=== PATIENT | female | born 1950 | race Caucasian/White ===

== ENCOUNTER → 2016-05-30 | Outpatient (CLI) | payer MEDICARE ==
--- NOTE | 2016-05-31 08:51 | US ---
EXAMINATION TYPE: US venous doppler duplex LE RT DATE OF EXAM: 05/30/2016 5:15 PM COMPARISON: NONE CLINICAL HISTORY: M79.661 Pain in Right Lower Limb. Redness right foot SIDE PERFORMED: Right VESSELS IMAGED: External Iliac Vein (EIV) Common Femoral Vein Deep Femoral Vein Greater Saphenous Vein * Femoral Vein Popliteal Vein Small Saphenous Vein * Proximal Calf Veins (* superficial vessels) TECHNOLOGIST IMPRESSION: Right Leg: NO evidence of acute DVT as visualized, patient unable to tolerate compressions at mid an d lower femoral vein No popliteal fossa lesion was seen. IMPRESSION: THIS EXAMINATION IS NEGATIVE FOR DVT WITHIN THE RIGHT LEG.
== END | disposition home or self-care (01) ==
LOC: RADUSWWP 16:18
PROVIDERS: ATTEND Family Medicine
DX: M79.661 Pain in right lower leg (principal)

== ENCOUNTER → 2016-06-27 | Outpatient (CLI) | payer MEDICARE ==
--- NOTE | 2016-06-27 13:39 | NM ---
EXAMINATION TYPE: NM bone 3 phase DATE OF EXAM: 06/27/2016 1:18 PM COMPARISON: NONE HISTORY: M79.662 pain in lt lower limb Triple phase bone scintigraphy was performed following the injection of25.5 mCi Tc 99m MDP. Immediat e images and 5.5 hours post injection images acquired. FINDINGS: On All 3 phases of the study there is increased radiotracer accumulation involving the right third to e distally. This is nonspecific and may be posttraumatic in nature. IMPRESSION: Increased radiotracer accumulation on all 3 phases of the study involving the right third toe.
== END ==
LOC: RADNMMAIN 07:02
PROVIDERS: ATTEND Family Medicine
DX: M79.662 Pain in left lower leg (principal); M87.878 Other osteonecrosis, left toe(s)
CPT/HCPCS: 78315; A9503

== ENCOUNTER → 2016-08-06 | Outpatient (CLI) | payer MEDICARE ==
[2016-08-06 07:32] LABS: Blood Urea Nitrogen 16 mg/dL (7-17); Non-African American GFR(MDRD) >60 (>60 ml/min/1.73 sqM)
--- NOTE | 2016-08-06 08:52 | CT ---
EXAMINATION TYPE: CT foot RT w con DATE OF EXAM: 08/06/2016 8:22 AM COMPARISON: Correlation bone scan 06/27/2016 HISTORY: 66-year-old female, osteomyelitis, pain, redness to middle toe TECHNIQUE: Contiguous axial scanning of the right foot performed with IV Contrast, patient injected w ith 100 mL of Omnipaque 300. Coronal/sagittal reconstructions performed. 3-D rotational reconstructio ns generated on a dedicated independent workstation. CT DLP: 187.1 mGycm Automated exposure control for dose reduction was used. FINDINGS: There are hammertoe deformities. There is an ulceration at the downward pointing tip of the third toe . The underlying distal phalangeal tuft cortex appears intact. No valeriano bony destruction or periostitis. Diffuse vascular calcifications compatible with underlying diabetes and/or chronic kidney disease. No acute fracture or midfoot malalignment. IMPRESSION: HAMMERTOE DEFORMITIES WITH A SOFT TISSUE ULCER AT THE DOWNWARD POINTING TIP OF THE THIRD TOE. NO CONV INCING CT EVIDENCE FOR UNDERLYING OSTEOMYELITIS AT THIS TIME.
== END | disposition home or self-care (01) ==
LOC: RADCTMAIN 06:58
PROVIDERS: ATTEND Surgery
DX: L97.519 Non-pressure chronic ulcer of other part of right foot with unspecified severity (principal); M20.41 Other hammer toe(s) (acquired), right foot
CPT/HCPCS: 82565; 84520; 36415; 73701; Q9967

== ENCOUNTER → 2017-04-29 | Outpatient (CLI) | payer MEDICARE ==
--- NOTE | 2017-04-29 10:31 | US ---
EXAMINATION TYPE: US venous doppler duplex LE LT DATE OF EXAM: 04/29/2017 10:13 AM COMPARISON: Bilateral venous ultrasound November 12, 2011 CLINICAL HISTORY: M79.622,R22.42 PAIN IN LT LOWER AND UPPER LIMB. Pain left leg, patient on blood thi nner SIDE PERFORMED: left TECHNIQUE: The lower extremity deep venous system is examined utilizing real time linear array sonog suzy with graded compression, doppler sonography and color-flow sonography. VESSELS IMAGED: External Iliac Vein (EIV) Common Femoral Vein Deep Femoral Vein Greater Saphenous Vein * Femoral Vein Popliteal Vein Small Saphenous Vein * Proximal Calf Veins (* superficial vessels) Left Leg: No evidence of DVT as visualized. Patient unable to tolerate compression at lower femoral vein Grayscale, color doppler, spectral doppler imaging performed of the deep veins of the left lower extr emity. There is normal flow and vascular waveforms. IMPRESSION: Slightly suboptimal study as patient was unable to tolerate compression views, no conv incing ultrasound evidence for acute DVT.
== END | disposition home or self-care (01) ==
LOC: RADUSWWP 09:46
PROVIDERS: ATTEND Family Medicine
DX: R22.42 Localized swelling, mass and lump, left lower limb (principal)

== ENCOUNTER → 2017-05-02 | Outpatient (CLI) | payer MEDICARE ==
--- NOTE | 2017-05-02 10:15 | US ---
EXAMINATION TYPE: US venous doppler duplex LE RT DATE OF EXAM: 05/02/2017 9:53 AM COMPARISON: US CLINICAL HISTORY: 66-year-old female M79.661 PAIN IN RT LOWER LIMB; swelling and skin redness lower e xtremity x 1 week; patient stated is taking blood thinner SIDE PERFORMED: Right TECHNIQUE: The lower extremity deep venous system is examined utilizing real time linear array sonog suzy with graded compression, doppler sonography and color-flow sonography. VESSELS IMAGED: Common Femoral Vein Deep Femoral Vein Greater Saphenous Vein * Femoral Vein Popliteal Vein Small Saphenous Vein * Proximal Calf Veins Posterior tibial veins (* superficial vessels) Right Leg: Negative for DVT. Right groin lymph node is imaged = 3.9 x 1.3 x 0.9cm. IMPRESSION: No evidence for DVT within the right lower extremity. There is an incidental prominent right inguinal lymph node. This measures 1.3 cm short axis which is upper limits of normal. Likely reactive/post in flammatory and can be followed clinically.
== END | disposition home or self-care (01) ==
LOC: RADUSWWP 09:00
PROVIDERS: ATTEND Family Medicine
DX: M79.661 Pain in right lower leg (principal)

== ENCOUNTER → 2017-05-14 | Outpatient (CLI) | payer MEDICARE ==
--- NOTE | 2017-05-20 10:47 | P.ARTDOP ---
Arterial Doppler LOWER EXTREMITY ARTERIAL DOPPLER: DATE OF SERVICE: 05/14/2017 Reason for study: Bilateral leg pain. Doppler waveforms: Multiphasic bilaterally throughout .. Pulse volume recording: Normal configuration at the ankle and above and at the metatarsal level. Monophasic 2 flat line at the digital level.. Pressure gradients: Across the knee on the left and above the knee on the right.. Ankle-brachial indices: 0.74 on the right and 0.72 on the left.. Toe pressures: 23 . on the right, 25 on the left Impression: Suspect moderate bilateral fem-pop disease. Probably an additional element of vasospastic phenomenon. Cannot rule out very distal disease. Clinical correlation recommended..
== END | disposition home or self-care (01) ==
LOC: RADUSWWP 12:58
PROVIDERS: ATTEND Family Medicine
DX: M79.661 Pain in right lower leg (principal); M79.662 Pain in left lower leg; R22.41 Localized swelling, mass and lump, right lower limb
CPT/HCPCS: 93923

== ENCOUNTER → 2017-05-19 | Outpatient (CLI) | payer MEDICARE ==
--- NOTE | 2017-05-19 19:14 | ECHOF ---
Referral Reason:J44.9 Chronic obstructive pulmonary disease MEASUREMENTS -------- HEIGHT: 157.5 cm WEIGHT: 77.1 kg BP: IVSd: 1.9 cm (0.6 - 1.1) LVIDd: 1.8 cm (3.9 - 5.3) LVPWd: 1.4 cm (0.6 - 1.1) IVSs: 1.6 cm LVIDs: 1.1 cm LVPWs: 1.3 cm Ao Diam: 3.2 cm (2.0 - 3.7) AV Cusp: 1.6 cm (1.5 - 2.6) LA Diam: 3.4 cm (2.7 - 3.8) MV EXCURSION: 12.495 mm (> 18.000) MV EF SLOPE: 66 mm/s (70 - 150) EPSS: 1.5 cm MV E Zen: 0.75 m/s MV DecT: 136 ms MV A Zen: 1.34 m/s MV E/A Ratio: 0.55 AV maxP.19 mmHg AV meanP.42 mmHg RAP: 5.00 mmHg RVSP: 23.58 mmHg FINDINGS -------- Resting tachycardia (HR>100bpm). This was a technically difficult study with suboptimal views. Patient has had a mastectomy with rec onstruction. The left ventricular size is normal. There is severe concentric left ventricular hypertrophy. Ove rall left ventricular systolic function is normal with, an EF between 65 - 70 %. The right ventricle is normal in size and function. RVH The left atrium is normal in size. The right atrium is normal in size. Aortic valve is trileaflet and is mildly thickened. There is mild aortic stenosis present. Peak/m sergei gradient across the Aortic Valve is 20.19mmHg / 14.42mmHg. The mitral valve leaflets are mildly thickened. Mild mitral annular calcification present. Mild m itral regurgitation is present. Mild tricuspid regurgitation present. The right ventricular systolic pressure, as measured by Doppl er, is 23.58mmHg. The pulmonic valve was not well visualized. The aortic root size is normal. There is a small, generalized pericardial effusion present. CONCLUSIONS -------- 1. Resting tachycardia (HR>100bpm). 2. This was a technically difficult study with suboptimal views. 3. Patient has had a mastectomy with reconstruction. 4. There is severe concentric left ventricular hypertrophy. 5. Overall left ventricular systolic function is normal with, an EF between 65 - 70 %. 6. The right ventricle is normal in size and function. 7. RVH 8. The left atrium is normal in size. 9. The right atrium is normal in size. 10. Aortic valve is trileaflet and is mildly thickened. 11. There is mild aortic stenosis present. 12. Peak/mean gradient across the Aortic Valve is 20.19mmHg / 14.42mmHg. 13. The mitral valve leaflets are mildly thickened. 14. Mild mitral annular calcification present. 15. Mild mitral regurgitation is present. 16. Mild tricuspid regurgitation present. 17. The right ventricular systolic pressure, as measured by Doppler, is 23.58mmHg. 18. The pulmonic valve was not well visualized. 19. The aortic root size is normal. 20. There is a small, generalized pericardial effusion present. WEED CUTTER: Daija Coles RDCS
== END | disposition home or self-care (01) ==
LOC: RADECHMAIN 16:18
PROVIDERS: ATTEND Family Medicine
DX: I08.1 Rheumatic disorders of both mitral and tricuspid valves (principal); J44.9 Chronic obstructive pulmonary disease, unspecified
CPT/HCPCS: 93306

== ENCOUNTER 2017-08-16 18:42 | Inpatient (IN) | payer MEDICARE ==
[2017-08-16] MEDS ORDERED: SODIUM CHLORIDE 0.9% 1,000 ML IV ONE (19:11)
--- NOTE | 2017-08-16 19:17 | ED ---
Fall HPI - General Stated Complaint: fall 6 steps Source: patient, family, EMS Mode of arrival: EMS - History of Present Illness Initial Comments: 67-year-old female patient with past medical history significant for dementia, COPD, diabetes, hypertension, and hyperlipidemia presents to the emergency department today for evaluation after expressing a fall at home. Patient has a chair lift going up and down the stairs. states that patient's chair was at approximately the third step down and she was found lying on the landing approximately 7 or 8 steps down the stairs. States that she had multiple skin tears. States that she did hit her head. They deny any loss of consciousness. Patient states that she was feeling dizzy throughout the hour leading up to the fall. states the patient has been weak, nauseated, and not herself over the last 4-5 weeks. Patient currently denies any pain. She does have swelling and skin tear over the left wrist. Patient denies any headache, neck pain, back pain, chest pain, shortness of breath, abdominal pain, or difficulties with bowel movements or urination. - Related Data Home Medications Medication Instructions Recorded Confirmed Atorvastatin [Lipitor] 20 mg PO QAM 09/02/15 10/01/16 DULoxetine HCL [Cymbalta] 60 mg PO QAM 09/02/15 10/01/16 Doxepin HCl [SINEquan] 300 mg PO HS 09/02/15 10/01/16 Furosemide [Lasix] 20 mg PO QAM 09/02/15 10/01/16 INSULIN LISPRO (HumaLOG) [HumaLOG] 0 units SQ ACHS 09/02/15 10/01/16 Ramipril [Altace] 5 mg PO QAM 09/02/15 10/01/16 Roflumilast [Daliresp] 500 mcg PO QAM 09/02/15 10/01/16 amLODIPine [Norvasc] 5 mg PO QAM 09/02/15 10/01/16 rOPINIRole HCL [Requip] 3 mg PO HS 09/02/15 10/01/16 Cholecalciferol [Vitamin D3] 50,000 unit PO WEEKLY 09/13/15 10/01/16 Cranberry Fruit Extract [Cranberry] 500 mg PO DAILY 09/13/15 10/01/16 Levothyroxine Sodium [Synthroid] 50 mcg PO QAM 09/13/15 10/01/16 Potassium Otc 99 mg PO BID 09/13/15 10/01/16 Albuterol Inhaler [Ventolin Hfa 1 - 2 puff INHALATION Q6HR PRN 09/20/15 10/01/16 Inhaler] Baclofen [Lioresal] 10 mg PO HS 06/25/16 10/01/16 Cholecalciferol [Vitamin D3] 2,000 units PO DAILY 06/25/16 10/01/16 HYDROcodone/APAP 7.5-325MG [Cumby 7.5 mg PO HS 06/25/16 10/01/16 7.5-325] Insulin NPH Human Isophane 80 units SQ BID 06/25/16 10/01/16 [NovoLIN N] Rivastigmine [Exelon 13.3MG/24Hr 1 patch TOPICAL DAILY 06/25/16 10/01/16 Patch] ALPRAZolam [Xanax] 0.5 mg PO DAILY PRN 07/16/16 10/01/16 Allergies Allergy/AdvReac Type Severity Reaction Status Date / Time No Known Allergies Allergy Verified 08/16/17 18:55 Review of Systems ROS Statement: Those systems with pertinent positive or pertinent negative responses have been documented in the HPI. ROS Other: All systems not noted in ROS Statement are negative. Past Medical History Past Medical History: COPD, Diabetes Mellitus, Hyperlipidemia, Hypertension Additional Past Medical History / Comment(s): 09/02/15: FELL WITH L1 FRACTURE. Chronic back PAIN DUE TO SEVERAL FALLS. ALZHEIMER'S History of Any Multi-Drug Resistant Organisms: None Reported Past Surgical History: Back Surgery, Breast Surgery, Cholecystectomy, Joint Replacement Additional Past Surgical History / Comment(s): raya mast (FIBROCYSTIC DISEASE). BILATERAL KNEE REPLACED. KYPHOPLASTY L1 ON 09/20/15 Past Anesthesia/Blood Transfusion Reactions: No Reported Reaction Past Psychological History: No Psychological Hx Reported Smoking Status: Current every day smoker Past Alcohol Use History: None Reported Past Drug Use History: None Reported - Past Family History Mother Family Medical History: Diabetes Mellitus Sister(s) Family Medical History: Diabetes Mellitus General Exam Limitations: altered mental status General appearance: alert, in no apparent distress, other (This is a well- developed, well-nourished elderly female patient in no acute distress. Vital signs upon presentation are temperature 98.5F, pulse 124, respirations 18, blood pressure 94/47, pulse ox 85% on room air.) Head exam: Present: atraumatic, normocephalic, normal inspection Eye exam: Present: normal appearance, PERRL, EOMI. Absent: scleral icterus, conjunctival injection, periorbital swelling ENT exam: Present: normal exam, normal oropharynx, mucous membranes moist Neck exam: Present: normal inspection. Absent: tenderness, meningismus, full ROM (C-collar in place), lymphadenopathy Respiratory exam: Present: normal lung sounds bilaterally, other (Congested cough noted throughout exam). Absent: respiratory distress, wheezes, rales, rhonchi, stridor Cardiovascular Exam: Present: normal rhythm, tachycardia, normal heart sounds. Absent: systolic murmur, diastolic murmur, rubs, gallop, clicks GI/Abdominal exam: Present: soft, normal bowel sounds. Absent: distended, tenderness, guarding, rebound, rigid Extremities exam: Present: full ROM, tenderness (Tenderness over the left wrist) , normal capillary refill, other (There is a small skin tear noted over the dorsal aspect left wrist. There is left wrist swelling. No deformity noted. Skin to the left upper extremity is pink, warm, and dry. Cap refills less than 3 seconds. There is a large skin tear noted over the right forearm. Skin to the right upper extremities pink, warm, and dry. Cap refills less than 3 seconds. Radial pulses are 2+ and equal bilaterally.). Absent: normal inspection, pedal edema, joint swelling, calf tenderness Back exam: Present: normal inspection, other (Nontender, no step-off, no deformity to firm midline palpation of the thoracic and lumbar vertebrae. Full range of motion without pain or limitation.). Absent: vertebral tenderness Neurological exam: Present: alert, CN II-XII intact, other (Strength in all 4 extremities is 5/5.). Absent: oriented X3 (Oriented 2) Psychiatric exam: Present: normal affect, normal mood Skin exam: Present: warm, dry, intact, normal color. Absent: rash Course Vital Signs 08/16/17 08/16/17 08/16/17 18:51 19:33 19:50 Temperature 98.5 F Pulse Rate 124 H 119 H 107 H Respiratory 18 20 Rate Blood Pressure 94/47 99/54 O2 Sat by Pulse 85 L 92 L Oximetry 08/16/17 20:52 Temperature Pulse Rate 107 H Respiratory 15 Rate Blood Pressure 91/51 O2 Sat by Pulse 95 Oximetry Medical Decision Making - Medical Decision Making 67-year-old female patient presented to the emergency department today after expressing a fall. reported the patient has been weak and nauseated over the last few weeks as well. Patient reported dizziness as a contributor to her fall today. Labs reviewed and showed a white blood cell count at 12.0, neutrophil count of 10.0. Chloride is 94, CO2 31, BUN 26, creatinine 1.73, GFR is 30. Magnesium is 1.3. Urinalysis was negative for any evidence of infection but did show some protein. Upon arrival patient was also hypoxic and tachycardic. Chest x-ray did show some pulmonary edema as well as a possible left lower lobe pneumonia. Patient has been coughing. She does use tobacco. Patient will be started on azithromycin and Rocephin for pneumonia. Magnesium will be replaced. Tetanus will be updated. IV fluids will be ordered. Dr. Sanon is accepting. - Lab Data Result diagrams: 08/16/17 19:25 08/16/17 19:25 Lab Results 08/16/17 08/16/17 08/16/17 Range/Units 19:25 19:25 19:25 WBC 12.0 H (3.8-10.6) k/uL RBC 5.16 (3.80-5.40) m/uL Hgb 13.9 (11.4-16.0) gm/dL Hct 43.5 (34.0-46.0) % MCV 84.2 (80.0-100.0) fL MCH 27.0 (25.0-35.0) pg MCHC 32.0 (31.0-37.0) g/dL RDW 15.6 H (11.5-15.5) % Plt Count 428 (150-450) k/uL Neutrophils % 83 % Lymphocytes % 9 % Monocytes % 5 % Eosinophils % 1 % Basophils % 1 % Neutrophils # 10.0 H (1.3-7.7) k/uL Lymphocytes # 1.1 (1.0-4.8) k/uL Monocytes # 0.6 (0-1.0) k/uL Eosinophils # 0.2 (0-0.7) k/uL Basophils # 0.1 (0-0.2) k/uL PT (9.0-12.0) sec INR (<1.2) APTT (22.0-30.0) sec Sodium 137 (137-145) mmol/L Potassium 4.1 (3.5-5.1) mmol/L Chloride 94 L (98-107) mmol/L Carbon Dioxide 31 H (22-30) mmol/L Anion Gap 12 mmol/L BUN 26 H (7-17) mg/dL Creatinine 1.73 H (0.52-1.04) mg/dL Est GFR (CKD-EPI)AfAm 34 (>60 ml/min/1.73 sqM) Est GFR (CKD-EPI)NonAf 30 (>60 ml/min/1.73 sqM) Glucose 191 H (74-99) mg/dL POC Glucose (mg/dL) (75-99) mg/dL POC Glu Nutritional Services Cook ID Calcium 9.6 (8.4-10.2) mg/dL Magnesium 1.3 L (1.6-2.3) mg/dL Total Bilirubin 0.9 (0.2-1.3) mg/dL AST 36 (14-36) U/L ALT 31 (9-52) U/L Alkaline Phosphatase 111 (38-126) U/L Total Creatine Kinase 33 (30-135) U/L CK-MB (CK-2) 0.3 (0.0-2.4) ng/mL CK-MB (CK-2) Rel Index 0.9 Troponin I 0.026 (0.000-0.034) ng/mL Total Protein 6.7 (6.3-8.2) g/dL Albumin 3.7 (3.5-5.0) g/dL Amylase 47 (30-110) U/L Lipase 24 (23-300) U/L Urine Color Urine Appearance (Clear) Urine pH (5.0-8.0) Ur Specific [employer] (1.001-1.035) Urine Protein (Negative) Urine Glucose (UA) (Negative) Urine Ketones (Negative) Urine Blood (Negative) Urine Nitrite (Negative) Urine Bilirubin (Negative) Urine Urobilinogen (<2.0) mg/dL Ur Leukocyte Esterase (Negative) 08/16/17 08/16/17 08/16/17 Range/Units 19:25 22:12 22:35 WBC (3.8-10.6) k/uL RBC (3.80-5.40) m/uL Hgb (11.4-16.0) gm/dL Hct (34.0-46.0) % MCV (80.0-100.0) fL MCH (25.0-35.0) pg MCHC (31.0-37.0) g/dL RDW (11.5-15.5) % Plt Count (150-450) k/uL Neutrophils % % Lymphocytes % % Monocytes % % Eosinophils % % Basophils % % Neutrophils # (1.3-7.7) k/uL Lymphocytes # (1.0-4.8) k/uL Monocytes # (0-1.0) k/uL Eosinophils # (0-0.7) k/uL Basophils # (0-0.2) k/uL PT 10.9 (9.0-12.0) sec INR 1.1 (<1.2) APTT 22.1 (22.0-30.0) sec Sodium (137-145) mmol/L Potassium (3.5-5.1) mmol/L Chloride (98-107) mmol/L Carbon Dioxide (22-30) mmol/L Anion Gap mmol/L BUN (7-17) mg/dL Creatinine (0.52-1.04) mg/dL Est GFR (CKD-EPI)AfAm (>60 ml/min/1.73 sqM) Est GFR (CKD-EPI)NonAf (>60 ml/min/1.73 sqM) Glucose (74-99) mg/dL POC Glucose (mg/dL) 160 H (75-99) mg/dL POC Glu Nutritional Services Cook ID Percy Han Calcium (8.4-10.2) mg/dL Magnesium (1.6-2.3) mg/dL Total Bilirubin (0.2-1.3) mg/dL AST (14-36) U/L ALT (9-52) U/L Alkaline Phosphatase (38-126) U/L Total Creatine Kinase (30-135) U/L CK-MB (CK-2) (0.0-2.4) ng/mL CK-MB (CK-2) Rel Index Troponin I (0.000-0.034) ng/mL Total Protein (6.3-8.2) g/dL Albumin (3.5-5.0) g/dL Amylase (30-110) U/L Lipase (23-300) U/L Urine Color Yellow Urine Appearance Clear (Clear) Urine pH 5.5 (5.0-8.0) Ur Specific [employer] 1.010 (1.001-1.035) Urine Protein Trace H (Negative) Urine Glucose (UA) 1+ H (Negative) Urine Ketones Negative (Negative) Urine Blood Negative (Negative) Urine Nitrite Negative (Negative) Urine Bilirubin Negative (Negative) Urine Urobilinogen <2.0 (<2.0) mg/dL Ur Leukocyte Esterase Negative (Negative) - Radiology Data Radiology results: report reviewed, image reviewed 4 views of the left wrist are obtained. Report shows soft tissue swelling, particularly at the dorsum of the wrist. Atherosclerotic calcifications are noted. There is no fracture nor malalignment. There is marked osteopenia. Scattered advanced osteoarthritis changes are noted. Particular at the radiocarpal first MC joints. Impression by Dr. Gretchen Brito shows soft tissue swelling. CT of the brain and C-spine without contrast was obtained. Report was reviewed in its entirety. Impression by Dr. Gretchen Brito shows no acute fracture or dislocation evident in the cervical spine. No acute intracranial hemorrhage, mass effect, or midline shift is seen. Two-view x-ray of the chest was obtained. Report was reviewed in its entirety. Impression by Dr. Gretchen Brito shows radiographic evidence of interstitial these cardiogenic pulmonary edema. Retrocardiac atelectasis and/or pneumonia in the left lower lobe posteriorly. Disposition Clinical Impression: Left lower lobe pneumonia, Acute renal failure Disposition: ADMITTED IP TO THIS HOSP Condition: Serious Referrals: Kavya Atkins DO [Primary Care Provider] - 1-2 days Decision to Admit Reason: Admit from EC Decision Date: 08/17/17 Decision Time: 00:03
[2017-08-16 19:35] LABS: Basophils # (A) 0.1 k/uL (0-0.2); Basophils % (A) 1 %; Eosinophils # (A) 0.2 k/uL (0-0.7); Eosinophils % (A) 1 %; HCT 43.5 % (34.0-46.0); HGB 13.9 gm/dL (11.4-16.0); Lymphocytes # (A) 1.1 k/uL (1.0-4.8); Lymphocytes % (A) 9 %; MCV 84.2 fL (80.0-100.0); Mean Platelet Volume 8.4; Monocytes # (A) 0.6 k/uL (0-1.0); Monocytes % (A) 5 %; Neutrophils % (A) 83 %; Platelet Count 428 k/uL (150-450); RBC 5.16 m/uL (3.80-5.40); RDW 15.6 % (11.5-15.5)
[2017-08-16 19:45] LABS: INR 1.1 (<1.2); Partial Thromboplastin Time 22.1 sec (22.0-30.0); Prothrombin Time 10.9 sec (9.0-12.0)
[2017-08-16 19:46] LABS: Calcium 9.6 mg/dL (8.4-10.2); Total Bilirubin 0.9 mg/dL (0.2-1.3)
[2017-08-16 19:50] LABS: Potassium 4.1 mmol/L (3.5-5.1)
[2017-08-16 19:51] LABS: Albumin 3.7 g/dL (3.5-5.0); Magnesium 1.3 mg/dL (1.6-2.3); Total Protein 6.7 g/dL (6.3-8.2)
[2017-08-16 20:21] LABS: Creatine Kinase MB 0.3 ng/mL (0.0-2.4); Troponin I 0.026 ng/mL (0.000-0.034)
--- NOTE | 2017-08-16 21:34 | CT ---
EXAMINATION TYPE: CT brain euniceine wo con DATE OF EXAM: 08/16/2017 COMPARISON: 11/26/2009 HISTORY: Fall. CT DLP: 2255 mGycm Automated exposure control for dose reduction was used. TECHNIQUE: CT scan of the head and cervical spine are performed without contrast. FINDINGS: There is no acute intracranial hemorrhage, mass effect, or midline shift identified. The ventricles and sulci are within normal limits in size. The globes are intact and the visualized sin uses are clear. Cervical spine is visualized in its entirety from C1 through upper thoracic levels and demonstrates s atisfactory alignment without evidence of acute fracture or dislocation. Prevertebral soft tissue ap pears within normal limits. Prominent multilevel cervical spondylosis changes appreciated. The C1-C2 articulation is unremarkable. IMPRESSION: 1. There is no acute fracture or dislocation evident in the cervical spine. 2. No acute intracranial hemorrhage, mass effect, or midline shift is seen.
--- NOTE | 2017-08-16 21:39 | XR ---
EXAMINATION: XR chest 2V DATE AND TIME: 08/16/2017 9:02 PM ORDERING PROVIDER: Ondina Haskins CLINICAL INDICATION: Pain , trauma TECHNIQUE: PA and lateral COMPARISON: 11/13/2011 DESCRIPTION: There is mild plus enlargement of the cardiac silhouette. There is obscuration of the pu lmonary vasculature by a fine reticular pattern diffusely throughout the lungs, silhouetting the pulm onary vasculature. There is a triangular shaped retrocardiac consolidative opacity. No pneumothorax. No pleural effusion. No definite acute skeletal or soft tissue findings. IMPRESSION: 1. Radiographic evidence of interstitial phase cardiogenic pulmonary edema. 2. Retrocardiac atelectasis and/or pneumonia in the left lower lobe posteriorly.
--- NOTE | 2017-08-16 21:50 | XR ---
PROCEDURE: XR wrist complete LT 4 views DATE AND TIME: 08/16/2017 9:02 PM REFERRING PHYSICIAN: Ondina Haskins CLINICAL INDICATION: PHH, Pain TECHNIQUE: Department protocol. COMPARISON: None FINDINGS: There is soft tissue swelling, particularly at the dorsum of the wrist. Atherosclerotic calcification s are noted. There is no fracture or malalignment. There is marked osteopenia. Scattered advanced osteoarthritis changes are noted, particularly at the radiocarpal and first [employer] ints IMPRESSION: Soft tissue swelling.
[2017-08-16 22:15] LABS: Glucose,Whole Blood 160 mg/dL (75-99)
[2017-08-16 23:24] LABS: Appearance,Urine Clear (Clear); Bilirubin,Urine Negative (Negative); Blood,Urine Negative (Negative); Color,Urine Yellow; Glucose,Urine (UA) 1+ (Negative); Ketones,Urine Negative (Negative); Leukocyte Esterase,Urine Negative (Negative); Nitrite,Urine Negative (Negative); PH, Urine 5.5 (5.0-8.0); Protein,Urine Trace (Negative); Urobilinogen,Urine <2.0 mg/dL (<2.0)
[2017-08-16] MEDS ORDERED: PNEUMONIA PROTOCOL UTILIZED 1 EACH MISC PO PRN (23:57)
[2017-08-16] MEDS ORDERED: AZITHROMYCIN 500 MG in SODIUM CHLORIDE 0.9% 250 ML IVPB STA (23:57)
[2017-08-16] MEDS ORDERED: IPRATROPIUM-ALBUTEROL 3 ML NEB INHALATION PRN (23:57)
[2017-08-17] MEDS ORDERED: cefTRIAXone IN SWFI 1,000 MG/10 ML SYRINGE IVP STA (00:33)
[2017-08-17] MEDS: SODIUM CHLORIDE 0.9% 1,000 ML IV SCH ×2 (00:35→21:13)
[2017-08-17] MEDS ORDERED: Magnesium Replacement Protocol 1 EACH MISC MISCELLANE PRN (01:10)
[2017-08-17] MEDS ORDERED: DIPH,PERTUS(ACELL)TETVAC-LF 0.5 ML VIAL IM ONE (02:03)
[2017-08-17] MEDS: MAGNESIUM SULFATE-D5W PMX 1 GM in DEXTROSE/WATER 1 100ML.BAG IVPB SCH ×3 (03:11→05:34)
[2017-08-17 06:13] VITALS: BMI 29.2
--- NOTE | 2017-08-17 07:17 | XR ---
EXAMINATION TYPE: XR chest 2V DATE OF EXAM: 08/17/2017 COMPARISON: Chest x-ray from yesterday HISTORY: Difficulty breathing and pneumonia progress study. TECHNIQUE: Frontal and lateral views of the chest are obtained. FINDINGS: There is persistent cardiomegaly. There is persistent retrocardiac opacity. There is back ground of reticular interstitial changes bilaterally redemonstrated. There is no new focal airspace o pacity, pleural effusion, or pneumothorax seen bilaterally. The osseous structures are demineralized. Vertebroplasty upper lumbar spine is redemonstrated on lateral view. Surgical clips upper abdomen ar e also noted. IMPRESSION: Cardiomegaly with persistent retrocardiac atelectasis and/or infiltrate. No new infiltra te is seen. No significant change from prior.
[2017-08-17 08:04] LABS: Glucose,Whole Blood 131 mg/dL (75-99)
[2017-08-17] MEDS: INSULIN ASPART 100 UNIT/ML 1 ML 10 ML VIAL SQ SCH ×4 (08:07→21:07)
[2017-08-17] MEDS: IPRATROPIUM-ALBUTEROL 3 ML NEB INHALATION SCH ×4 (08:46→20:19)
[2017-08-17 12:27] LABS: Glucose,Whole Blood 173 mg/dL (75-99)
[2017-08-17] MEDS ORDERED: HYDROcodone/APAP 7.5-325MG 1 EACH TAB PO PRN (12:47)
[2017-08-17 12:48] LABS: Basophils # (A) 0.1 k/uL (0-0.2); Basophils % (A) 1 %; Eosinophils # (A) 0.2 k/uL (0-0.7); Eosinophils % (A) 2 %; HCT 39.2 % (34.0-46.0); HGB 12.7 gm/dL (11.4-16.0); Lymphocytes # (A) 1.3 k/uL (1.0-4.8); Lymphocytes % (A) 14 %; MCH 27.4 pg (25.0-35.0); MCHC 32.3 g/dL (31.0-37.0); MCV 84.9 fL (80.0-100.0); Mean Platelet Volume 8.1; Monocytes # (A) 0.5 k/uL (0-1.0); Monocytes % (A) 6 %; Neutrophils % (A) 77 %; Platelet Count 318 k/uL (150-450); RBC 4.62 m/uL (3.80-5.40); RDW 15.7 % (11.5-15.5); WBC 9.1 k/uL (3.8-10.6)
--- NOTE | 2017-08-17 12:54 | P.HPIM ---
History of Present Illness H&P Date: 08/17/17 Lesly Al is a 67-year-old female patient who presented to [facility] emergency department for evaluation after expressing a fall at home. Patient has a chair lift going up and down the stairs. states that patient's chair was at approximately the third step down and she was found lying on the landing about 7 steps down the stairs. She had some abrasions on her left wrist, there was no clear history of any loss of consciousness. stated that patient has been declining over the last few weeks, she was seen by her primary care physician Dr. Atkins she was treated for acute conjunctivitis bilaterally she was also complaining of abdominal pain and was scheduled to have a colonoscopy as outpatient. Patient has a known past medical history significant for Alzheimer disease dementia, COPD, diabetes, hypertension, and hyperlipidemia. Patient was evaluated in the emergency room she had evidence of pneumonia and evidence of acute renal failure she was started on IV antibiotic Rocephin and Zithromax and was started on IV fluid for hydration and was admitted to medical floor. Past Medical History Past Medical History: COPD, Dementia, Diabetes Mellitus, Hyperlipidemia, Hypertension Additional Past Medical History / Comment(s): 09/02/15: Fell w/ L1 fracture. Chronic back pain due to several falls. Alzheimer's dementia. History of Any Multi-Drug Resistant Organisms: None Reported Past Surgical History: Back Surgery, Breast Surgery, Cholecystectomy, Joint Replacement Additional Past Surgical History / Comment(s): Bilateral mastectomy - fibrocystic disease. Bilateral kne replacement. Kyphoplasty L1 on 09/20/15. Past Anesthesia/Blood Transfusion Reactions: No Reported Reaction Past Psychological History: Unable to Obtain Additional Psychological History / Comment(s): ALZIEMER'S DIAGNOSED, 6-7 YRS. AGO. (CAN GET AGITATED AND HAS BEEN HOSPITALIZED.) Smoking Status: Unknown if ever smoked Past Alcohol Use History: None Reported Past Drug Use History: None Reported - Past Family History Mother Family Medical History: Diabetes Mellitus Sister(s) Family Medical History: Diabetes Mellitus Medications and Allergies Home Medications Medication Instructions Recorded Confirmed Type Doxepin HCl [SINEquan] 300 mg PO HS 09/02/15 08/17/17 History Furosemide [Lasix] 20 mg PO QAM 09/02/15 08/17/17 History Ramipril [Altace] 5 mg PO QAM 09/02/15 08/17/17 History Cholecalciferol [Vitamin D3] 50,000 unit PO MO 09/13/15 08/17/17 History Cranberry Fruit Extract [Cranberry] 500 mg PO DAILY 09/13/15 08/17/17 History Levothyroxine Sodium [Synthroid] 50 mcg PO QAM 09/13/15 08/17/17 History Baclofen [Lioresal] 5 - 10 mg PO HS 06/25/16 08/17/17 History Cholecalciferol [Vitamin D3] 2,000 units PO DAILY 06/25/16 08/17/17 History HYDROcodone/APAP 7.5-325MG [[place] 1 tab PO TID PRN 06/25/16 08/17/17 History 7.5-325] Insulin NPH Human Isophane See Protocol SQ BID 06/25/16 08/17/17 History [NovoLIN N] Rivastigmine [Exelon 13.3MG/24Hr 1 patch TOPICAL DAILY 06/25/16 08/17/17 History Patch] ARIPiprazole [Abilify] 5 mg PO DAILY 08/17/17 08/17/17 History Aspirin EC [Ecotrin Low Dose] 81 mg PO BID 08/17/17 08/17/17 History Atorvastatin [Lipitor] 40 mg PO DAILY 08/17/17 08/17/17 History Cilostazol [Pletal] 100 mg PO BID 08/17/17 08/17/17 History DULoxetine HCL [Cymbalta] 60 mg PO DAILY 08/17/17 08/17/17 History Gabapentin [Neurontin] 100 mg PO HS 08/17/17 08/17/17 History Metolazone [Zaroxolyn] 2.5 mg PO Q72H 08/17/17 08/17/17 History Omeprazole 40 mg PO DAILY 08/17/17 08/17/17 History busPIRone HCl [Buspar] 10 mg PO BID 08/17/17 08/17/17 History rOPINIRole HCL [Requip] 3 mg PO HS 08/17/17 08/17/17 History Allergies Allergy/AdvReac Type Severity Reaction Status Date / Time No Known Allergies Allergy Verified 08/17/17 11:59 Physical Exam Vitals: Vital Signs Temp Pulse Pulse Resp BP BP BP 08/17/17 12:12 104 H 08/17/17 11:59 100 08/17/17 07:15 97.8 F 106 H 22 130/65 08/17/17 03:07 98.7 F 104 H 16 127/77 08/17/17 02:49 99.2 F 08/17/17 01:49 115 H 18 103/56 08/17/17 01:03 112 H 18 116/58 08/16/17 20:52 107 H 15 91/51 08/16/17 19:50 107 H 20 99/54 08/16/17 19:33 119 H 08/16/17 18:51 98.5 F 124 H 18 94/47 Pulse Ox 08/17/17 12:12 08/17/17 11:59 08/17/17 07:15 93 L 08/17/17 03:07 96 08/17/17 02:49 08/17/17 01:49 97 08/17/17 01:03 98 08/16/17 20:52 95 08/16/17 19:50 92 L 08/16/17 19:33 08/16/17 18:51 85 L Intake and Output 08/16/17 08/17/17 08/17/17 22:59 06:59 14:59 Output Total 500 Balance -500 Output: Urine 500 Straight 500 Other: Voiding Method Diaper Diaper Incontinent Incontinent # Voids 3 1 # Bowel Movements 1 Weight 63.503 kg 75 kg HEENT head normocephalic and atraumatic there is evidence of partially treated bilateral conjunctivitis Neck is supple no JVD no goiter no lymphadenopathy Chest exam reveals a scattered crackles bilaterally no wheezing Cardiac exam reveals regular heart sounds no gallops no murmurs Abdomen is soft nontender no organomegaly Extremity exam reveals no edema no cyanosis or clubbing Results CBC & Chem 7: 08/16/17 19:25 08/16/17 19:25 Labs: Abnormal Lab Results - Last 24 Hours (Table) 08/16/17 08/16/17 08/16/17 Range/Units 19:25 19:25 22:12 WBC 12.0 H (3.8-10.6) k/uL RDW 15.6 H (11.5-15.5) % Neutrophils # 10.0 H (1.3-7.7) k/uL Chloride 94 L (98-107) mmol/L Carbon Dioxide 31 H (22-30) mmol/L BUN 26 H (7-17) mg/dL Creatinine 1.73 H (0.52-1.04) mg/dL Glucose 191 H (74-99) mg/dL POC Glucose (mg/dL) 160 H (75-99) mg/dL Magnesium 1.3 L (1.6-2.3) mg/dL Urine Protein (Negative) Urine Glucose (UA) (Negative) 08/16/17 08/17/17 Range/Units 22:35 07:17 WBC (3.8-10.6) k/uL RDW (11.5-15.5) % Neutrophils # (1.3-7.7) k/uL Chloride (98-107) mmol/L Carbon Dioxide (22-30) mmol/L BUN (7-17) mg/dL Creatinine (0.52-1.04) mg/dL Glucose (74-99) mg/dL POC Glucose (mg/dL) 131 H (75-99) mg/dL Magnesium (1.6-2.3) mg/dL Urine Protein Trace H (Negative) Urine Glucose (UA) 1+ H (Negative) Thrombosis Risk Factor Assmnt - Choose All That Apply Any of the Below Risk Factors Present?: Yes Each Factor Represents 1 point: Abnormal pulmonary function (COPD), Medical pt on bed rest, Serious lung disease incl. pneumonia (< 1month) Other Risk Factors: Yes Each Risk Factor Represents 2 Points: Age 61-74 years Other congenital or acquired thrombophilia - If yes, enter type in comment: No Thrombosis Risk Factor Assessment Total Risk Factor Score: 5 Thrombosis Risk Factor Assessment Level: High Risk Assessment and Plan Plan: #1 Evidence of pneumonia on chest x-ray done in the emergency room patient was started on IV Rocephin and IV Zithromax #2 Underlying history of advanced dementia due to Alzheimer disease #3 Underlying history of hypertension #4 Underlying history of diabetes mellitus millimeters #5 Underlying history of hyperlipidemia #6 Underlying history of COPD #7 acute renal failure likely due to prerenal azotemia, will monitor kidney function #8 leukocytosis white blood count elevated at 12 likely related to pneumonia At this time medication and labs were reviewed continue with current management recheck labs in a.m. Will follow
[2017-08-17 13:03] LABS: Albumin 3.3 g/dL (3.5-5.0); Calcium 9.3 mg/dL (8.4-10.2); Potassium 3.8 mmol/L (3.5-5.1); Total Bilirubin 0.6 mg/dL (0.2-1.3); Total Protein 5.9 g/dL (6.3-8.2)
[2017-08-17 17:09] LABS: Glucose,Whole Blood 189 mg/dL (75-99)
[2017-08-17] MEDS: DOXEPIN 25 MG CAP PO SCH (21:07)
[2017-08-17] MEDS: busPIRone HCl 10 MG TAB PO SCH (21:07)
[2017-08-17] MEDS: CILOSTAZOL 100 MG TAB PO SCH (21:07)
[2017-08-17] MEDS: ASPIRIN 81 MG PO SCH (21:07)
[2017-08-17] MEDS: GABAPENTIN 100 MG CAP PO SCH (21:07)
[2017-08-17 21:28] LABS: Glucose,Whole Blood 222 mg/dL (75-99)
[2017-08-18] MEDS ORDERED: AZITHROMYCIN 500 MG TAB PO SCH
[2017-08-18] MEDS: AZITHROMYCIN 500 MG in SODIUM CHLORIDE 0.9% 250 ML IVPB SCH (05:58)
[2017-08-18] MEDS: LEVOTHYROXINE 50 MCG TAB PO SCH (05:58)
[2017-08-18 07:22] LABS: Glucose,Whole Blood 301 mg/dL (75-99)
[2017-08-18] MEDS: DULoxetine HCL 60 MG CAPSULE.DR PO SCH (07:42)
[2017-08-18] MEDS: CHOLECALCIFEROL 1,000 UNIT TAB PO SCH (07:42)
[2017-08-18] MEDS: ASPIRIN 81 MG PO SCH ×2 (07:42→21:29)
[2017-08-18] MEDS: CILOSTAZOL 100 MG TAB PO SCH ×2 (07:42→21:30)
[2017-08-18] MEDS: RIVASTIGMINE 13.3MG/24HR PATCH TRANSDERM SCH (07:42)
[2017-08-18] MEDS: ATORVASTATIN 40 MG TAB PO SCH (07:42)
[2017-08-18] MEDS: busPIRone HCl 10 MG TAB PO SCH ×2 (07:42→21:29)
[2017-08-18] MEDS: PANTOPRAZOLE 40 MG TABLET PO SCH (07:42)
[2017-08-18] MEDS: FUROSEMIDE 20 MG TAB PO SCH (07:42)
[2017-08-18] MEDS: ARIPiprazole 5 MG TAB PO SCH (07:43)
[2017-08-18] MEDS: cefTRIAXone IN SWFI 1,000 MG/10 ML SYRINGE IVP SCH (07:43)
[2017-08-18] MEDS: INSULIN ASPART 100 UNIT/ML 1 ML 10 ML VIAL SQ SCH ×4 (07:43→21:37)
[2017-08-18] MEDS: IPRATROPIUM-ALBUTEROL 3 ML NEB INHALATION SCH ×4 (08:29→19:49)
[2017-08-18] MEDS ORDERED: ERGOCALCIFEROL 50,000 UNIT CAP PO SCH ×2 (09:00)
[2017-08-18 09:31] LABS: Calcium 9.5 mg/dL (8.4-10.2); Potassium 3.7 mmol/L (3.5-5.1); Total Bilirubin 0.5 mg/dL (0.2-1.3); Total Protein 5.5 g/dL (6.3-8.2)
[2017-08-18 09:43] LABS: Basophils # (A) 0.1 k/uL (0-0.2); Basophils % (A) 1 %; Eosinophils # (A) 0.3 k/uL (0-0.7); Eosinophils % (A) 5 %; HCT 37.5 % (34.0-46.0); HGB 12.2 gm/dL (11.4-16.0); Lymphocytes # (A) 1.5 k/uL (1.0-4.8); Lymphocytes % (A) 23 %; MCH 27.9 pg (25.0-35.0); MCHC 32.5 g/dL (31.0-37.0); MCV 85.7 fL (80.0-100.0); Mean Platelet Volume 8.4; Monocytes # (A) 0.5 k/uL (0-1.0); Monocytes % (A) 7 %; Neutrophils # (A) 4.1 k/uL (1.3-7.7); Neutrophils % (A) 63 %; Platelet Count 262 k/uL (150-450); RBC 4.37 m/uL (3.80-5.40); RDW 15.5 % (11.5-15.5); WBC 6.6 k/uL (3.8-10.6)
--- NOTE | 2017-08-18 09:58 | P.PN ---
Subjective Progress Note Date: 08/18/17 Lesly Al is a 67-year-old female patient who presented to [facility] emergency department for evaluation after expressing a fall at home. Patient has a chair lift going up and down the stairs. states that patient's chair was at approximately the third step down and she was found lying on the landing about 7 steps down the stairs. She had some abrasions on her left wrist, there was no clear history of any loss of consciousness. stated that patient has been declining over the last few weeks, she was seen by her primary care physician Dr. Atkins she was treated for acute conjunctivitis bilaterally she was also complaining of abdominal pain and was scheduled to have a colonoscopy as outpatient. Patient has a known past medical history significant for Alzheimer disease dementia, COPD, diabetes, hypertension, and hyperlipidemia. Patient was evaluated in the emergency room she had evidence of pneumonia and evidence of acute renal failure she was started on IV antibiotic Rocephin and Zithromax and was started on IV fluid for hydration and was admitted to medical floor. 08/18/2017 patient is new new complaints. She is asking when she can go home. She is still needing 4 L of oxygen satting at 96%. Patient reports not wearing oxygen at home. Blood sugars have been elevated. It is unclear how much insulin patient takes at home. Nursing staff will verify this with patient's . Patient denies any chest pain or shortness of breath. Denies any nausea or vomiting. Still having some cough. Denies any bowel movement changes or urinary symptoms. Objective - Vital Signs Vital signs: Vital Signs Temp 98.3 F 08/18/17 06:23 Pulse 100 08/18/17 08:42 Resp 20 08/18/17 06:23 BP 102/70 08/18/17 06:23 Pulse Ox 96 08/18/17 08:30 Intake & Output 08/17/17 08/18/17 08/18/17 18:59 06:59 18:59 Intake Total 350 Balance 350 Intake: Oral 350 Other: Voiding Method Diaper Diaper Incontinent Incontinent # Voids 2 2 # Bowel Movements 0 - Exam Head normocephalic Neck supple Lungs a few scattered rhonchi bilaterally that improved with cough Heart regular rate and rhythm S1-S2, no rub or gallop Abdomen is soft nontender nondistended positive bowel sounds no hepatosplenomegaly Extremities no edema Neuro alert and orientated to 3 - Labs CBC & Chem 7: 08/18/17 07:43 08/18/17 07:43 Labs: Abnormal Lab Results - Last 24 Hours (Table) 08/17/17 08/17/17 08/17/17 Range/Units 12:22 12:22 12:25 RDW 15.7 H (11.5-15.5) % Sodium 135 L (137-145) mmol/L Chloride 93 L (98-107) mmol/L Carbon Dioxide 32 H (22-30) mmol/L Creatinine 1.14 H (0.52-1.04) mg/dL Glucose 168 H (74-99) mg/dL POC Glucose (mg/dL) 173 H (75-99) mg/dL Total Protein 5.9 L (6.3-8.2) g/dL Albumin 3.3 L (3.5-5.0) g/dL 08/17/17 08/17/17 08/18/17 Range/Units 16:59 20:57 07:20 RDW (11.5-15.5) % Sodium (137-145) mmol/L Chloride (98-107) mmol/L Carbon Dioxide (22-30) mmol/L Creatinine (0.52-1.04) mg/dL Glucose (74-99) mg/dL POC Glucose (mg/dL) 189 H 222 H 301 H (75-99) mg/dL Total Protein (6.3-8.2) g/dL Albumin (3.5-5.0) g/dL 08/18/17 Range/Units 07:43 RDW (11.5-15.5) % Sodium 136 L (137-145) mmol/L Chloride 94 L (98-107) mmol/L Carbon Dioxide 31 H (22-30) mmol/L Creatinine (0.52-1.04) mg/dL Glucose 235 H (74-99) mg/dL POC Glucose (mg/dL) (75-99) mg/dL Total Protein 5.5 L (6.3-8.2) g/dL Albumin 3.0 L (3.5-5.0) g/dL Microbiology - Last 24 Hours (Table) 08/17/17 00:25 Blood Culture - Preliminary Blood No Growth after 24 hours Assessment and Plan Assessment: #1 Evidence of pneumonia on chest x-ray done in the emergency room patient was started on IV Rocephin and IV Zithromax. Pulmonary service consulted #2 Underlying history of advanced dementia due to Alzheimer disease #3 Underlying history of hypertension #4 Underlying history of diabetes mellitus: Having episodes of hyperglycemia. We'll have nursing staff clarify patient's home insulin #5 Underlying history of hyperlipidemia #6 Underlying history of COPD #7 acute renal failure likely due to prerenal azotemia, will monitor kidney function. Kidney functions have improved #8 leukocytosis white blood count elevated at 12 likely related to pneumonia. White count normalized #9 hypomagnesemia: Magnesium 1.6. Give 1 g of magnesium sulfate. Repeat magnesium level tomorrow #10 medical debility: Consult physical therapy DVT prophylaxis subcu heparin I performed an examination of the patient and discussed their management with the physician [employer] Coordinator. I have reviewed the Physician [employer] Coordinator's notes and agree with the documented findings and plan of care
[2017-08-18] MEDS ORDERED: MAGNESIUM SULFATE-D5W PMX 1 GM in DEXTROSE/WATER 1 100ML.BAG IVPB ONE (10:30)
[2017-08-18 12:12] LABS: Glucose,Whole Blood 273 mg/dL (75-99)
--- NOTE | 2017-08-18 12:50 | ECHOF ---
Referral Reason:abnormal CXR, possible CHF MEASUREMENTS -------- HEIGHT: 160.0 cm WEIGHT: 74.8 kg BP: 102/70 RVIDd: 2.8 cm (< 3.3) IVSd: 1.4 cm (0.6 - 1.1) LVIDd: 4.3 cm (3.9 - 5.3) LVPWd: 1.4 cm (0.6 - 1.1) IVSs: 1.6 cm LVIDs: 2.7 cm LVPWs: 1.9 cm LAESV Index (A-L): 21.42 ml/m Ao Diam: 3.4 cm (2.0 - 3.7) AV Cusp: 1.6 cm (1.5 - 2.6) LA Diam: 3.1 cm (2.7 - 3.8) MV E Zen: 0.87 m/s MV DecT: 422 ms MV A Zen: 1.19 m/s MV E/A Ratio: 0.74 AV maxP.19 mmHg AV meanP.79 mmHg RAP: 5.00 mmHg RVSP: 27.56 mmHg FINDINGS -------- Atrial fibrillation. This was a technically adequate study. The left ventricular size is normal. There is moderate concentric left ventricular hypertrophy. O verall left ventricular systolic function is normal with, an EF between 60 - 65 %. The right ventricle is normal in size and function. Normal LA size by volume 22+/-6 ml/m2. Lipomatous hypertrophy of the IAS The right atrium is normal in size. There is mild aortic valve sclerosis. Moderate mitral annular calcification present. Mild mitral regurgitation is present. Mild tricuspid regurgitation present. Right ventricular systolic pressure is normal at < 35 mmHg. There is no evidence of pulmonary hypertension. The pulmonic valve was not well visualized. There is no pulmonic regurgitation present. The aortic root size is normal. Normal inferior vena cava with normal inspiratory collapse consistent with estimated right atrial pre ssure of 5 mmHg. There is no pericardial effusion. CONCLUSIONS -------- 1. Atrial fibrillation. 2. This was a technically adequate study. 3. The left ventricular size is normal. 4. There is moderate concentric left ventricular hypertrophy. 5. Overall left ventricular systolic function is normal with, an EF between 60 - 65 %. 6. Normal LA size by volume 22+/-6 ml/m2. 7. Lipomatous hypertrophy of the IAS 8. There is mild aortic valve sclerosis. 9. Moderate mitral annular calcification present. 10. Mild mitral regurgitation is present. 11. Mild tricuspid regurgitation present. 12. Right ventricular systolic pressure is normal at < 35 mmHg. 13. The pulmonic valve was not well visualized. 14. There is no pulmonic regurgitation present. 15. The aortic root size is normal. 16. There is no pericardial effusion. AUCTION ASSISTANT: Zack Barker RDCS
[2017-08-18 14:03] LABS: Hemoglobin A1C 8.1 % (4.0-6.0)
[2017-08-18] MEDS: SODIUM CHLORIDE 0.9% 1,000 ML IV SCH (16:00)
--- NOTE | 2017-08-18 16:52 | CT ---
EXAMINATION TYPE: CT chest wo con DATE OF EXAM: 08/18/2017 COMPARISON: 01/20/2012 HISTORY: Patient complains of difficulty breathing. Patient displays unproductive cough. CT DLP: [address] of the chest was performed with lung and mediastinal window settings submitted. The la ck of contrast limits evaluation of the vascular, mediastinal and parenchymal structures including th e upper abdomen. LUNGS: Patchy density left lower lobe may reflect atelectasis and/or infiltrate. Mild bronchial wall thickening. Dependent atelectasis left lower lobe. MEDIASTINUM/SONAL: Thoracic aorta is of normal caliber with limited evaluation given lack of contrast . The heart is mildly enlarged. No evidence for mediastinal mass. No lymph nodes greater than 1cm . UPPER ABDOMEN: No significant abnormality is seen. OTHER: No significant other abnormality. IMPRESSION: 1. Patchy density left lower lobe may reflect atelectasis and/or infiltrate. Mild bronchial wall thi ckening.
--- NOTE | 2017-08-18 16:52 | P.CNPUL ---
History of Present Illness Consult date: 08/18/17 Requesting physician: Nicola Sanon Reason for consult: COPD, abnormal CXR/CT, other Chief complaint: Fall, mental status changes, weakness, nausea History of present illness: Lesly is a 67-year-old white female patient of Dr. Atkins, who presented to the emergency department per EMS on 08/16/2017 1842 after sustaining a fall at home. Patient lives at home with her , and has an underlying history of COPD, diabetes mellitus type 2, hypertension, dementia, hyperlipidemia. Patient was going up in the chair lift and was at the level of approximately the third step down, she was found lying on the landing proximately 7 or 8 steps down the stairs. The is at the bedside and provided much of the history, he states the patient for the first 2-3 minutes after the fall was very lethargic, but did not seem to lose consciousness. The patient was feeling dizzy prior to the fall. She had been weak, nauseous, and not herself over the previous 4-5 weeks. She denied any worsening dyspnea, she does have an underlying COPD, denied any chest pain. She denied any headache, neck pain, back pain, abdominal pain or changes with her urination or bowels. Patient sustained multiple skin tears on bilateral arms. In the emergency room, patient was noted to be hypoxic and tachycardic, with a pulse ox of 85% on room air, patient was noted to be tachycardic with a heart rate of 124 BPM. Lab work showed WBC of 12.0, remote 137, potassium 4.1, chloride is 94, CO2 is 31, B1 is 26, creatinine is 1.73. Plasma lactic acid was 1.1, troponins and cardiac enzymes were negative 1, amylase and lipase were within normal limits, liver enzymes were normal, urinalysis showed trace protein and glucose. Chest x -ray on 08/16/2017 showed mild cardiomegaly, interstitial phase of cardiogenic pulmonary edema, retrocardiac atelectasis or pneumonia in the left lower lobe posteriorly. Head/cervical spine CT showed no acute fracture or dislocation in the cervical spine, no acute intracranial hemorrhage, mass effect or midline shift. Left wrist x-ray showed soft tissue swelling. Follow-up chest x-ray on 08/17/2017 showed cardiomegaly with persistent retrocardiac atelectasis and/or infiltrate. Patient was empirically placed on azithromycin and Rocephin, on nebulized bronchodilators, and IV hydration with 0.9 normal saline at a rate of 50 ML per hour, and admitted for further management. We are seeing the patient in regards to the possible left lower lobe pneumonia Review of Systems All systems: negative Constitutional: Reports lethargy, Denies chills, Denies fever Eyes: denies blurred vision, denies pain Ears, nose, mouth and throat: Denies headache, Denies sore throat Breasts: absent: as per HPI (Bilateral mastectomy) Cardiovascular: Denies chest pain, Denies shortness of breath Respiratory: Denies cough Gastrointestinal: Denies abdominal pain, Denies diarrhea, Denies nausea, Denies vomiting Genitourinary: Denies dysuria, Denies hematuria Musculoskeletal: Denies myalgias Integumentary: Denies pruritus, Denies rash Neurological: Denies numbness, Denies weakness Psychiatric: Denies anxiety, Denies depression Endocrine: Denies fatigue, Denies weight change Past Medical History Past Medical History: COPD, Dementia, Diabetes Mellitus, Hyperlipidemia, Hypertension Additional Past Medical History / Comment(s): 09/02/15: Fell w/ L1 fracture. Chronic back pain due to several falls. Alzheimer's dementia. History of Any Multi-Drug Resistant Organisms: None Reported Past Surgical History: Back Surgery, Breast Surgery, Cholecystectomy, Joint Replacement Additional Past Surgical History / Comment(s): Bilateral mastectomy - fibrocystic disease. Bilateral kne replacement. Kyphoplasty L1 on 09/20/15. Past Anesthesia/Blood Transfusion Reactions: No Reported Reaction Past Psychological History: Unable to Obtain Additional Psychological History / Comment(s): ALZIEMER'S DIAGNOSED, 6-7 YRS. AGO. (CAN GET AGITATED AND HAS BEEN HOSPITALIZED.) Smoking Status: Unknown if ever smoked Past Alcohol Use History: None Reported Past Drug Use History: None Reported - Past Family History Mother Family Medical History: Diabetes Mellitus Sister(s) Family Medical History: Diabetes Mellitus Medications and Allergies Home Medications Medication Instructions Recorded Confirmed Type Doxepin HCl [SINEquan] 300 mg PO HS 09/02/15 08/17/17 History Furosemide [Lasix] 20 mg PO QAM 09/02/15 08/17/17 History Ramipril [Altace] 5 mg PO QAM 09/02/15 08/17/17 History Cranberry Fruit Extract [Cranberry] 500 mg PO DAILY 09/13/15 08/17/17 History Levothyroxine Sodium [Synthroid] 50 mcg PO QAM 09/13/15 08/17/17 History Baclofen [Lioresal] 5 - 10 mg PO HS 06/25/16 08/17/17 History Cholecalciferol [Vitamin D3] 2,000 units PO DAILY 06/25/16 08/17/17 History HYDROcodone/APAP 7.5-325MG [[place] 1 tab PO TID PRN 06/25/16 08/17/17 History 7.5-325] Insulin NPH Human Isophane See Protocol SQ BID 06/25/16 08/17/17 History [NovoLIN N] Rivastigmine [Exelon 13.3MG/24Hr 1 patch TOPICAL DAILY 06/25/16 08/17/17 History Patch] ARIPiprazole [Abilify] 5 mg PO DAILY 08/17/17 08/17/17 History Aspirin EC [Ecotrin Low Dose] 81 mg PO BID 08/17/17 08/17/17 History Atorvastatin [Lipitor] 40 mg PO DAILY 08/17/17 08/17/17 History Cilostazol [Pletal] 100 mg PO BID 08/17/17 08/17/17 History DULoxetine HCL [Cymbalta] 60 mg PO DAILY 08/17/17 08/17/17 History Ergocalciferol (Vitamin D2) 50,000 unit PO MO 08/17/17 08/17/17 History [Vitamin D2] Gabapentin [Neurontin] 100 mg PO HS 08/17/17 08/17/17 History Metolazone [Zaroxolyn] 2.5 mg PO Q72H 08/17/17 08/17/17 History Omeprazole 40 mg PO DAILY 08/17/17 08/17/17 History busPIRone HCl [Buspar] 10 mg PO BID 08/17/17 08/17/17 History rOPINIRole HCL [Requip] 3 mg PO HS 08/17/17 08/17/17 History Allergies Allergy/AdvReac Type Severity Reaction Status Date / Time No Known Allergies Allergy Verified 08/17/17 11:59 Physical Exam Vitals: Vital Signs Temp Pulse Pulse Resp BP Pulse Ox 08/18/17 16:01 96 08/18/17 15:53 96 08/18/17 14:52 97.6 F 104 H 18 106/52 98 08/18/17 12:41 96 08/18/17 12:30 96 08/18/17 08:42 100 08/18/17 08:30 96 96 08/18/17 06:23 98.3 F 99 20 102/70 100 08/17/17 23:00 98.8 F 71 20 108/59 93 L 08/17/17 20:27 103 H 08/17/17 20:19 102 H Intake and Output 08/18/17 08/18/17 08/18/17 06:59 14:59 22:59 Intake Total 600 Balance 600 Intake: Oral 600 Other: Voiding Method Diaper Incontinent # Voids 2 4 - Constitutional Pleasant, 67-year-old white female, resting in bed, responds appropriately, in no acute distress General appearance: average body habitus, cooperative - EENT Eyes: EOMI, PERRLA ENT: NA/AT Ears: bilateral: normal - Neck Neck: no lymphadenopathy, normal ROM Carotids: bilateral: upstroke normal Thyroid: bilateral: normal size - Respiratory Respiratory: bilateral: rales (Bilateral bases) - Cardiovascular Rhythm: regular Heart sounds: normal: S1, S2 ankle Peripheral Edema: absent: None foot Peripheral Edema: absent: None leg Peripheral Edema: absent: None dorsalis pedis Peripheral Pulses: bilateral: Normal radial pulse Peripheral Pulses: bilateral: Normal - Gastrointestinal General gastrointestinal: no organomegaly, soft, no tenderness - Integumentary Skin tears on bilateral arms, covered with dressings Integumentary: normal turgor - Neurologic Neurologic: CNII-XII intact - Musculoskeletal Musculoskeletal: generalized weakness, strength equal bilaterally - Psychiatric Patient is alert oriented 2, person and place Psychiatric: appropriate affect, intact judgment & insight Results - Laboratory Findings CBC and BMP: 08/18/17 07:43 08/18/17 07:43 PT/INR, D-dimer PT 10.9 sec (9.0-12.0) 08/16/17 19:25 INR 1.1 (<1.2) 08/16/17 19:25 Abnormal lab findings: Abnormal Labs 08/16/17 08/16/17 08/16/17 19:25 19:25 19:25 WBC 12.0 H RDW 15.6 H Neutrophils # 10.0 H Sodium Chloride 94 L Carbon Dioxide 31 H BUN 26 H Creatinine 1.73 H Glucose 191 H POC Glucose (mg/dL) Hemoglobin A1c 8.1 H Magnesium 1.3 L Total Protein Albumin Urine Protein Urine Glucose (UA) 08/16/17 08/16/17 08/17/17 22:12 22:35 07:17 WBC RDW Neutrophils # Sodium Chloride Carbon Dioxide BUN Creatinine Glucose POC Glucose (mg/dL) 160 H 131 H Hemoglobin A1c Magnesium Total Protein Albumin Urine Protein Trace H Urine Glucose (UA) 1+ H 08/17/17 08/17/17 08/17/17 12:22 12:22 12:25 WBC RDW 15.7 H Neutrophils # Sodium 135 L Chloride 93 L Carbon Dioxide 32 H BUN Creatinine 1.14 H Glucose 168 H POC Glucose (mg/dL) 173 H Hemoglobin A1c Magnesium Total Protein 5.9 L Albumin 3.3 L Urine Protein Urine Glucose (UA) 08/17/17 08/17/17 08/18/17 16:59 20:57 07:20 WBC RDW Neutrophils # Sodium Chloride Carbon Dioxide BUN Creatinine Glucose POC Glucose (mg/dL) 189 H 222 H 301 H Hemoglobin A1c Magnesium Total Protein Albumin Urine Protein Urine Glucose (UA) 08/18/17 08/18/17 07:43 11:28 WBC RDW Neutrophils # Sodium 136 L Chloride 94 L Carbon Dioxide 31 H BUN Creatinine Glucose 235 H POC Glucose (mg/dL) 273 H Hemoglobin A1c Magnesium Total Protein 5.5 L Albumin 3.0 L Urine Protein Urine Glucose (UA) - Diagnostic Findings Chest x-ray: report reviewed, image reviewed Additional studies: EKG reviewed Assessment and Plan Plan: Assessment: #1. Acute hypoxemic respiratory failure secondary to a possible left lower lobe infiltrate, rule out pneumonia #2. A fall of the chair lift, secondary to generalized weakness, dizziness #3. Acute kidney injury, possibly related to ATN, patient presented with the BUN of 26, creatinine of 1.73, improved with IV hydration #4. Skin tears on bilateral arms, secondary to fall, head/cervical spine CT were within normal limits, with no evidence of fracture, or acute intracranial abnormality #5. Alzheimer's dementia #6. COPD #7. Diabetes mellitus #8. Hypertension, hyperlipidemia Plan: We will obtain CT chest without contrast to characterize left lower lobe infiltrate. Agree with azithromycin and Rocephin, continue with nebulized bronchodilators. Patient's renal profile has improved with hydration, white count is now within normal limits, we'll continue to follow, and make recommendations based on the clinical course I performed a history & physical examination of the patient and discussed their management with my nurse practitioner, Shefali Valenzuela. I reviewed the nurse practitioner's note and agree with the documented findings and plan of care. Lung sounds are positive for bibasilar crackles. The findings and the impression was discussed with the patient. I attest to the documentation by the nurse practitioner. Time with Patient: Greater than 30
[2017-08-18 17:07] LABS: Glucose,Whole Blood 530 mg/dL (75-99)
[2017-08-18 17:07] LABS: Glucose,Whole Blood 528 mg/dL (75-99)
[2017-08-18] MEDS ORDERED: INSULIN ASPART 100 UNIT/ML 1 ML 10 ML VIAL SQ ONE (17:10)
[2017-08-18 20:37] LABS: Glucose,Whole Blood 408 mg/dL (75-99)
[2017-08-18] MEDS ORDERED: INSULIN DETEMIR 100 UNIT/ML 10 ML VIAL SQ SCH (21:00)
[2017-08-18] MEDS: GABAPENTIN 100 MG CAP PO SCH (21:30)
[2017-08-18] MEDS: DOXEPIN 25 MG CAP PO SCH (21:31)
[2017-08-18] MEDS: HEPARIN SODIUM,PORCINE 5,000 UNIT/ML 1 ML VIAL SQ SCH (21:40)
[2017-08-19 02:08] LABS: Glucose,Whole Blood 211 mg/dL (75-99)
[2017-08-19] MEDS: LEVOTHYROXINE 50 MCG TAB PO SCH (06:00)
[2017-08-19] MEDS: AZITHROMYCIN 500 MG in SODIUM CHLORIDE 0.9% 250 ML IVPB SCH (06:02)
[2017-08-19 07:14] LABS: Glucose,Whole Blood 214 mg/dL (75-99)
[2017-08-19] MEDS: FUROSEMIDE 20 MG TAB PO SCH (08:30)
[2017-08-19] MEDS: CILOSTAZOL 100 MG TAB PO SCH ×2 (08:30→19:33)
[2017-08-19] MEDS: DULoxetine HCL 60 MG CAPSULE.DR PO SCH (08:30)
[2017-08-19] MEDS: busPIRone HCl 10 MG TAB PO SCH ×2 (08:31→19:34)
[2017-08-19] MEDS: CHOLECALCIFEROL 1,000 UNIT TAB PO SCH (08:31)
[2017-08-19] MEDS: RIVASTIGMINE 13.3MG/24HR PATCH TRANSDERM SCH (08:31)
[2017-08-19] MEDS: cefTRIAXone IN SWFI 1,000 MG/10 ML SYRINGE IVP SCH (08:31)
[2017-08-19] MEDS: INSULIN ASPART 100 UNIT/ML 1 ML 10 ML VIAL SQ SCH ×4 (08:32→21:14)
[2017-08-19] MEDS: ATORVASTATIN 40 MG TAB PO SCH (08:33)
[2017-08-19] MEDS: PANTOPRAZOLE 40 MG TABLET PO SCH (08:33)
[2017-08-19] MEDS: ASPIRIN 81 MG PO SCH ×2 (08:33→19:34)
[2017-08-19] MEDS: ARIPiprazole 5 MG TAB PO SCH (08:33)
[2017-08-19] MEDS: HEPARIN SODIUM,PORCINE 5,000 UNIT/ML 1 ML VIAL SQ SCH ×2 (08:34→19:35)
[2017-08-19 08:51] LABS: Basophils # (A) 0.1 k/uL (0-0.2); Basophils % (A) 1 %; Eosinophils # (A) 0.4 k/uL (0-0.7); Eosinophils % (A) 8 %; HCT 36.5 % (34.0-46.0); HGB 11.7 gm/dL (11.4-16.0); Lymphocytes # (A) 1.6 k/uL (1.0-4.8); Lymphocytes % (A) 29 %; MCH 27.8 pg (25.0-35.0); MCV 86.6 fL (80.0-100.0); Mean Platelet Volume 7.7; Monocytes # (A) 0.3 k/uL (0-1.0); Monocytes % (A) 6 %; Neutrophils % (A) 55 %; Platelet Count 242 k/uL (150-450); RBC 4.21 m/uL (3.80-5.40); RDW 15.4 % (11.5-15.5); WBC 5.5 k/uL (3.8-10.6)
[2017-08-19] MEDS: IPRATROPIUM-ALBUTEROL 3 ML NEB INHALATION SCH ×4 (08:53→19:40)
[2017-08-19 09:10] LABS: Calcium 9.4 mg/dL (8.4-10.2); Magnesium 1.5 mg/dL (1.6-2.3); Potassium 3.5 mmol/L (3.5-5.1); Total Bilirubin 0.5 mg/dL (0.2-1.3); Total Protein 5.4 g/dL (6.3-8.2)
[2017-08-19] MEDS: MAGNESIUM SULFATE-D5W PMX 1 GM in DEXTROSE/WATER 1 100ML.BAG IVPB SCH ×2 (11:01→14:04)
[2017-08-19 11:44] LABS: Glucose,Whole Blood 236 mg/dL (75-99)
[2017-08-19] MEDS: SODIUM CHLORIDE 0.9% 1,000 ML IV SCH (12:00)
--- NOTE | 2017-08-19 12:23 | P.PN ---
Subjective Progress Note Date: 08/19/17 Lesly Al is a 67-year-old female patient who presented to [facility] emergency department for evaluation after expressing a fall at home. Patient has a chair lift going up and down the stairs. states that patient's chair was at approximately the third step down and she was found lying on the landing about 7 steps down the stairs. She had some abrasions on her left wrist, there was no clear history of any loss of consciousness. stated that patient has been declining over the last few weeks, she was seen by her primary care physician Dr. Atkins she was treated for acute conjunctivitis bilaterally she was also complaining of abdominal pain and was scheduled to have a colonoscopy as outpatient. Patient has a known past medical history significant for Alzheimer disease dementia, COPD, diabetes, hypertension, and hyperlipidemia. Patient was evaluated in the emergency room she had evidence of pneumonia and evidence of acute renal failure she was started on IV antibiotic Rocephin and Zithromax and was started on IV fluid for hydration and was admitted to medical floor. 08/18/2017 patient is new new complaints. She is asking when she can go home. She is still needing 4 L of oxygen satting at 96%. Patient reports not wearing oxygen at home. Blood sugars have been elevated. It is unclear how much insulin patient takes at home. Nursing staff will verify this with patient's . Patient denies any chest pain or shortness of breath. Denies any nausea or vomiting. Still having some cough. Denies any bowel movement changes or urinary symptoms. 08/19/2017 patient lying in bed comfortably. She is sleepy this morning. Arousable and able to answer questions. And then falls back to sleep. Denies any chest pain or shortness of breath. Denies any nausea or vomiting. Denies any bowel movement changes or urinary symptoms. Patient is still very elevated blood sugars. She had blood sugars as high as 500. Lantus was started yesterday at 10. We'll increase to 15 units at bedtime. She had a computed tomography scan of the chest showing a patchy density in the left lower lobe since her possible atelectasis versus infiltrate. Also mild bronchial wall thickening. Pulmonary service is following. Echo showed an EF of 60-65% did mention atrial fibrillation. Patient will have an EKG and be placed on telemetry continue to monitor lipomatous hypertrophy of the IAS also shows mild mitral regurgitation and mild tricuspid regurgitation Objective - Vital Signs Vital signs: Vital Signs Temp 98.4 F 08/19/17 06:15 Pulse 92 08/19/17 12:13 Resp 17 08/19/17 06:15 BP 115/68 08/19/17 06:15 Pulse Ox 93 L 08/19/17 08:53 Intake & Output 08/18/17 08/19/17 08/19/17 18:59 06:59 18:59 Intake Total 1200 Balance 1200 Intake: Oral 1200 Other: Voiding Method Diaper Diaper Incontinent Incontinent # Voids 1 3 1 - Exam Head normocephalic Neck supple Lungs a few scattered rhonchi bilaterally that improved with cough Heart regular rate and rhythm S1-S2, no rub or gallop Abdomen is soft nontender nondistended positive bowel sounds no hepatosplenomegaly Extremities no edema Neuro alert and orientated to 3 - Labs CBC & Chem 7: 08/19/17 08:09 08/19/17 08:09 Labs: Abnormal Lab Results - Last 24 Hours (Table) 08/16/17 08/18/17 08/18/17 Range/Units 19:25 17:03 17:04 Chloride (98-107) mmol/L Carbon Dioxide (22-30) mmol/L Glucose (74-99) mg/dL POC Glucose (mg/dL) 530 H 528 H (75-99) mg/dL Hemoglobin A1c 8.1 H (4.0-6.0) % Magnesium (1.6-2.3) mg/dL Total Protein (6.3-8.2) g/dL Albumin (3.5-5.0) g/dL 08/18/17 08/19/17 08/19/17 Range/Units 20:35 02:06 06:51 Chloride (98-107) mmol/L Carbon Dioxide (22-30) mmol/L Glucose (74-99) mg/dL POC Glucose (mg/dL) 408 H 211 H 214 H (75-99) mg/dL Hemoglobin A1c (4.0-6.0) % Magnesium (1.6-2.3) mg/dL Total Protein (6.3-8.2) g/dL Albumin (3.5-5.0) g/dL 08/19/17 08/19/17 Range/Units 08:09 11:41 Chloride 94 L (98-107) mmol/L Carbon Dioxide 33 H (22-30) mmol/L Glucose 269 H (74-99) mg/dL POC Glucose (mg/dL) 236 H (75-99) mg/dL Hemoglobin A1c (4.0-6.0) % Magnesium 1.5 L (1.6-2.3) mg/dL Total Protein 5.4 L (6.3-8.2) g/dL Albumin 3.0 L (3.5-5.0) g/dL Microbiology - Last 24 Hours (Table) 08/17/17 00:25 Blood Culture - Preliminary Blood No Growth after 48 hours Assessment and Plan Assessment: #1 Evidence of pneumonia on chest x-ray done in the emergency room patient was started on IV Rocephin and IV Zithromax. Pulmonary following. CT chest shows patchy density left lower lobe may reflect atelectasis or infiltrate #2 Underlying history of advanced dementia due to Alzheimer disease #3 Underlying history of hypertension #4 Underlying history of diabetes mellitus: Having episodes of hyperglycemia. Lantus 10 units started last night. Still having elevated blood sugars. Patient's Lantus will be increased to 15 units at bedtime. Continue scale coverage. A1c is 8.1 #5 Underlying history of hyperlipidemia #6 Underlying history of COPD #7 acute renal failure likely due to prerenal azotemia, will monitor kidney function. Kidney functions have improved #8 leukocytosis white blood count elevated at 12 likely related to pneumonia. White count normalized #9 hypomagnesemia: Magnesium 1.5. Give 1 g of magnesium sulfate. Repeat magnesium level tomorrow #10 medical debility: Consult physical therapy #11 possible atrial fibrillation noted on echo: Check EKG and place patient on telemetry DVT prophylaxis subcu heparin I performed an examination of the patient and discussed their management with the physician Apparel Stock Checker. I have reviewed the Physician Apparel Stock Checker's notes and agree with the documented findings and plan of care
--- NOTE | 2017-08-19 12:48 | P.PN ---
Subjective Progress Note Date: 08/19/17 Principal diagnosis: Acute hypoxemic respiratory failure secondary to possible left lower lobe infiltrate, rule out pneumonia Lesly is a 67-year-old white female patient of Dr. Atkins, who presented to the emergency department per EMS on 08/16/2017 1842 after sustaining a fall at home. Patient lives at home with her , and has an underlying history of COPD, diabetes mellitus type 2, hypertension, dementia, hyperlipidemia. Patient was going up in the chair lift and was at the level of approximately the third step down, she was found lying on the landing proximately 7 or 8 steps down the stairs. The is at the bedside and provided much of the history, he states the patient for the first 2-3 minutes after the fall was very lethargic, but did not seem to lose consciousness. The patient was feeling dizzy prior to the fall. She had been weak, nauseous, and not herself over the previous 4-5 weeks. She denied any worsening dyspnea, she does have an underlying COPD, denied any chest pain. She denied any headache, neck pain, back pain, abdominal pain or changes with her urination or bowels. Patient sustained multiple skin tears on bilateral arms. In the emergency room, patient was noted to be hypoxic and tachycardic, with a pulse ox of 85% on room air, patient was noted to be tachycardic with a heart rate of 124 BPM. Lab work showed WBC of 12.0, remote 137, potassium 4.1, chloride is 94, CO2 is 31, B1 is 26, creatinine is 1.73. Plasma lactic acid was 1.1, troponins and cardiac enzymes were negative 1, amylase and lipase were within normal limits, liver enzymes were normal, urinalysis showed trace protein and glucose. Chest x -ray on 08/16/2017 showed mild cardiomegaly, interstitial phase of cardiogenic pulmonary edema, retrocardiac atelectasis or pneumonia in the left lower lobe posteriorly. Head/cervical spine CT showed no acute fracture or dislocation in the cervical spine, no acute intracranial hemorrhage, mass effect or midline shift. Left wrist x-ray showed soft tissue swelling. Follow-up chest x-ray on 08/17/2017 showed cardiomegaly with persistent retrocardiac atelectasis and/or infiltrate. Patient was empirically placed on azithromycin and Rocephin, on nebulized bronchodilators, and IV hydration with 0.9 normal saline at a rate of 50 ML per hour, and admitted for further management. We are seeing the patient in regards to the possible left lower lobe pneumonia On 08/19/2017 patient seen in follow-up in medical surgical floor. Resting in bed, in no acute distress, lung sounds are diminished, with some limited crackles at the bases. Pulse ox on 4 L per nasal cannula is 93%, she has been afebrile, hemodynamically stable. Today's labs were reviewed, WBC is 5.5, hemoglobin is 11.7, sodium is 137 potassium is 3.5, chloride is 94, CO2 is 33, renal profile continues to improve, and is now within normal limits, BUN is 12, creatinine 0.83, magnesium is 1.5, and this will be replaced per protocol. Blood culture showed no growth at the 48 hour kristin, patient denies any chest congestion, she is not producing any phlegm. She continues on empiric antibiotic coverage in the form of Zithromax and Rocephin, she continues on nebulized treatments. She is generally weak, and has not been out of bed. She is requesting to go home today, and she is adamant about not going to rehab after discharge. We will consult physical therapy. Otherwise patient remains stable, continue with current plan of treatment. Objective - Vital Signs Vital signs: Vital Signs Temp 98.4 F 08/19/17 06:15 Pulse 92 08/19/17 12:13 Resp 17 08/19/17 06:15 BP 115/68 08/19/17 06:15 Pulse Ox 93 L 08/19/17 08:53 Intake & Output 08/18/17 08/19/17 08/19/17 18:59 06:59 18:59 Intake Total 1200 Balance 1200 Intake: Oral 1200 Other: Voiding Method Diaper Diaper Incontinent Incontinent # Voids 1 3 1 - Exam - Constitutional Pleasant, 67-year-old white female, resting in bed, responds appropriately, in no acute distress General appearance: average body habitus, cooperative - EENT Eyes: EOMI, PERRLA ENT: NA/AT Ears: bilateral: normal - Neck Neck: no lymphadenopathy, normal ROM Carotids: bilateral: upstroke normal Thyroid: bilateral: normal size - Respiratory Respiratory: bilateral: rales (Bilateral bases) - Cardiovascular Rhythm: regular Heart sounds: normal: S1, S2 ankle Peripheral Edema: absent: None foot Peripheral Edema: absent: None leg Peripheral Edema: absent: None dorsalis pedis Peripheral Pulses: bilateral: Normal radial pulse Peripheral Pulses: bilateral: Normal - Gastrointestinal General gastrointestinal: no organomegaly, soft, no tenderness - Integumentary Skin tears on bilateral arms, covered with dressings Integumentary: normal turgor - Neurologic Neurologic: CNII-XII intact - Musculoskeletal Musculoskeletal: generalized weakness, strength equal bilaterally - Psychiatric Patient is alert oriented 2, person and place Psychiatric: appropriate affect, intact judgment & insight - Labs CBC & Chem 7: 08/19/17 08:09 08/19/17 08:09 Labs: Abnormal Lab Results - Last 24 Hours (Table) 08/16/17 08/18/17 08/18/17 Range/Units 19:25 17:03 17:04 Chloride (98-107) mmol/L Carbon Dioxide (22-30) mmol/L Glucose (74-99) mg/dL POC Glucose (mg/dL) 530 H 528 H (75-99) mg/dL Hemoglobin A1c 8.1 H (4.0-6.0) % Magnesium (1.6-2.3) mg/dL Total Protein (6.3-8.2) g/dL Albumin (3.5-5.0) g/dL 08/18/17 08/19/17 08/19/17 Range/Units 20:35 02:06 06:51 Chloride (98-107) mmol/L Carbon Dioxide (22-30) mmol/L Glucose (74-99) mg/dL POC Glucose (mg/dL) 408 H 211 H 214 H (75-99) mg/dL Hemoglobin A1c (4.0-6.0) % Magnesium (1.6-2.3) mg/dL Total Protein (6.3-8.2) g/dL Albumin (3.5-5.0) g/dL 08/19/17 08/19/17 Range/Units 08:09 11:41 Chloride 94 L (98-107) mmol/L Carbon Dioxide 33 H (22-30) mmol/L Glucose 269 H (74-99) mg/dL POC Glucose (mg/dL) 236 H (75-99) mg/dL Hemoglobin A1c (4.0-6.0) % Magnesium 1.5 L (1.6-2.3) mg/dL Total Protein 5.4 L (6.3-8.2) g/dL Albumin 3.0 L (3.5-5.0) g/dL Microbiology - Last 24 Hours (Table) 08/17/17 00:25 Blood Culture - Preliminary Blood No Growth after 48 hours Assessment and Plan Plan: Assessment: #1. Acute hypoxemic respiratory failure secondary to a possible left lower lobe infiltrate, rule out pneumonia #2. A fall of the chair lift, secondary to generalized weakness, dizziness #3. Acute kidney injury, possibly related to ATN, patient presented with the BUN of 26, creatinine of 1.73, improved with IV hydration #4. Skin tears on bilateral arms, secondary to fall, head/cervical spine CT were within normal limits, with no evidence of fracture, or acute intracranial abnormality #5. Alzheimer's dementia #6. COPD #7. Diabetes mellitus #8. Hypertension, hyperlipidemia Plan: CT chest was reviewed by Dr. Navarro, and showed patchy density in the left lower lobe reflecting atelectasis/infiltrate, and mild bronchial wall thickening. Continue current antibiotic coverage, Zithromax and Rocephin, continue with nebulized bronchodilators, provided patient with incentive spirometry, increase activity as tolerated, consult physical therapy, for mobility. And is very weak generally, she is adamant about going home after discharge, but has not been out of bed yet, though the extent of her mobility and strength is to be evaluated. I performed a history & physical examination of the patient and discussed their management with my nurse practitioner, Shefali Valenzuela. I reviewed the nurse practitioner's note and agree with the documented findings and plan of care. Lung sounds are positive for bibasilar crackles. The findings and the impression was discussed with the patient. I attest to the documentation by the nurse practitioner. Time with Patient: Less than 30
[2017-08-19] MEDS ORDERED: MAGNESIUM SULFATE-D5W PMX 1 GM in DEXTROSE/WATER 1 100ML.BAG IVPB ONE (13:00)
[2017-08-19 16:47] LABS: Glucose,Whole Blood 313 mg/dL (75-99)
[2017-08-19] MEDS: DOXEPIN 25 MG CAP PO SCH (19:30)
[2017-08-19] MEDS: GABAPENTIN 100 MG CAP PO SCH (19:34)
[2017-08-19 20:37] LABS: Glucose,Whole Blood 421 mg/dL (75-99)
[2017-08-19] MEDS ORDERED: INSULIN DETEMIR 100 UNIT/ML 10 ML VIAL SQ SCH ×2 (21:00)
[2017-08-19] MEDS ORDERED: guaiFENesin-Coden 100-10MG/5ML 10 ML CUP PO PRN (21:07)
[2017-08-19] MEDS: METOPROLOL TARTRATE 25 MG TAB PO SCH (21:55)
[2017-08-19 23:32] VITALS: RESP 16
[2017-08-20] MEDS ORDERED: AZITHROMYCIN 500 MG TAB PO SCH (06:00)
[2017-08-20 06:08] VITALS: BP 146/67; TEMP 98.9
[2017-08-20] MEDS: LEVOTHYROXINE 50 MCG TAB PO SCH (06:23)
[2017-08-20 07:23] LABS: Glucose,Whole Blood 337 mg/dL (75-99)
[2017-08-20] MEDS: IPRATROPIUM-ALBUTEROL 3 ML NEB INHALATION SCH ×2 (07:40→11:31)
[2017-08-20 08:19] VITALS: PULSE 93
[2017-08-20] MEDS: INSULIN ASPART 100 UNIT/ML 1 ML 10 ML VIAL SQ SCH ×2 (08:20→13:00)
[2017-08-20] MEDS: cefTRIAXone IN SWFI 1,000 MG/10 ML SYRINGE IVP SCH (08:20)
[2017-08-20] MEDS: ATORVASTATIN 40 MG TAB PO SCH (08:22)
[2017-08-20] MEDS: ARIPiprazole 5 MG TAB PO SCH (08:22)
[2017-08-20] MEDS: PANTOPRAZOLE 40 MG TABLET PO SCH (08:22)
[2017-08-20] MEDS: ASPIRIN 81 MG PO SCH (08:22)
[2017-08-20] MEDS: busPIRone HCl 10 MG TAB PO SCH (08:23)
[2017-08-20] MEDS: CHOLECALCIFEROL 1,000 UNIT TAB PO SCH (08:24)
[2017-08-20] MEDS: DULoxetine HCL 60 MG CAPSULE.DR PO SCH (08:25)
[2017-08-20] MEDS: FUROSEMIDE 20 MG TAB PO SCH (08:25)
[2017-08-20] MEDS: CILOSTAZOL 100 MG TAB PO SCH (08:25)
[2017-08-20] MEDS: RIVASTIGMINE 13.3MG/24HR PATCH TRANSDERM SCH (08:26)
[2017-08-20] MEDS: HEPARIN SODIUM,PORCINE 5,000 UNIT/ML 1 ML VIAL SQ SCH (08:26)
[2017-08-20] MEDS: SODIUM CHLORIDE 0.9% 1,000 ML IV SCH (09:28)
[2017-08-20] MEDS: METOPROLOL TARTRATE 25 MG TAB PO SCH (09:28)
[2017-08-20 10:52] LABS: Basophils # (A) 0.1 k/uL (0-0.2); Basophils % (A) 1 %; Eosinophils # (A) 0.5 k/uL (0-0.7); Eosinophils % (A) 7 %; HCT 34.6 % (34.0-46.0); HGB 11.4 gm/dL (11.4-16.0); Lymphocytes # (A) 1.2 k/uL (1.0-4.8); Lymphocytes % (A) 18 %; MCH 28.1 pg (25.0-35.0); MCHC 32.8 g/dL (31.0-37.0); MCV 85.7 fL (80.0-100.0); Mean Platelet Volume 8.3; Monocytes # (A) 0.3 k/uL (0-1.0); Monocytes % (A) 5 %; Neutrophils # (A) 4.5 k/uL (1.3-7.7); Neutrophils % (A) 68 %; Platelet Count 248 k/uL (150-450); RBC 4.04 m/uL (3.80-5.40); RDW 15.3 % (11.5-15.5); WBC 6.6 k/uL (3.8-10.6)
[2017-08-20 11:05] LABS: Albumin 3.2 g/dL (3.5-5.0); Calcium 9.5 mg/dL (8.4-10.2); Magnesium 1.6 mg/dL (1.6-2.3); Potassium 4.1 mmol/L (3.5-5.1); Total Bilirubin 0.4 mg/dL (0.2-1.3); Total Protein 5.6 g/dL (6.3-8.2)
--- NOTE | 2017-08-20 11:32 | P.PN ---
Subjective Progress Note Date: 08/20/17 Principal diagnosis: Acute hypoxemic respiratory failure secondary to possible left lower lobe infiltrate, rule out pneumonia Lesly is a 67-year-old white female patient of Dr. Atkins, who presented to the emergency department per EMS on 08/16/2017 1842 after sustaining a fall at home. Patient lives at home with her , and has an underlying history of COPD, diabetes mellitus type 2, hypertension, dementia, hyperlipidemia. Patient was going up in the chair lift and was at the level of approximately the third step down, she was found lying on the landing proximately 7 or 8 steps down the stairs. The is at the bedside and provided much of the history, he states the patient for the first 2-3 minutes after the fall was very lethargic, but did not seem to lose consciousness. The patient was feeling dizzy prior to the fall. She had been weak, nauseous, and not herself over the previous 4-5 weeks. She denied any worsening dyspnea, she does have an underlying COPD, denied any chest pain. She denied any headache, neck pain, back pain, abdominal pain or changes with her urination or bowels. Patient sustained multiple skin tears on bilateral arms. In the emergency room, patient was noted to be hypoxic and tachycardic, with a pulse ox of 85% on room air, patient was noted to be tachycardic with a heart rate of 124 BPM. Lab work showed WBC of 12.0, remote 137, potassium 4.1, chloride is 94, CO2 is 31, B1 is 26, creatinine is 1.73. Plasma lactic acid was 1.1, troponins and cardiac enzymes were negative 1, amylase and lipase were within normal limits, liver enzymes were normal, urinalysis showed trace protein and glucose. Chest x -ray on 08/16/2017 showed mild cardiomegaly, interstitial phase of cardiogenic pulmonary edema, retrocardiac atelectasis or pneumonia in the left lower lobe posteriorly. Head/cervical spine CT showed no acute fracture or dislocation in the cervical spine, no acute intracranial hemorrhage, mass effect or midline shift. Left wrist x-ray showed soft tissue swelling. Follow-up chest x-ray on 08/17/2017 showed cardiomegaly with persistent retrocardiac atelectasis and/or infiltrate. Patient was empirically placed on azithromycin and Rocephin, on nebulized bronchodilators, and IV hydration with 0.9 normal saline at a rate of 50 ML per hour, and admitted for further management. We are seeing the patient in regards to the possible left lower lobe pneumonia On 08/19/2017 patient seen in follow-up in medical surgical floor. Resting in bed, in no acute distress, lung sounds are diminished, with some limited crackles at the bases. Pulse ox on 4 L per nasal cannula is 93%, she has been afebrile, hemodynamically stable. Today's labs were reviewed, WBC is 5.5, hemoglobin is 11.7, sodium is 137 potassium is 3.5, chloride is 94, CO2 is 33, renal profile continues to improve, and is now within normal limits, BUN is 12, creatinine 0.83, magnesium is 1.5, and this will be replaced per protocol. Blood culture showed no growth at the 48 hour kristin, patient denies any chest congestion, she is not producing any phlegm. She continues on empiric antibiotic coverage in the form of Zithromax and Rocephin, she continues on nebulized treatments. She is generally weak, and has not been out of bed. She is requesting to go home today, and she is adamant about not going to rehab after discharge. We will consult physical therapy. Otherwise patient remains stable, continue with current plan of treatment. On 08/20/2017 patient seen in follow-up on medical surgical floor. Is more awake, and more talkative, but remains confused, and patient has an underlying Alzheimer's dementia. Denies any fever or chills, denies any dyspnea denies any urinary symptoms. Lung sounds reveal coarse rhonchi, patient has been encouraged to work with incentive spirometry, get out of bed yesterday with therapy. Blood cultures reveal no growth at that 72 hour kristin, she is currently on 2 L per nasal cannula with O2 sat 93%. Her chest CT showed a patchy density in the left lower lobe, doubt pneumonia, it is most likely related to atelectasis. A pulmonary standpoint patient is stable for discharge home today on an outpatient course of Ceftin. Objective - Vital Signs Vital signs: Vital Signs Temp 98.9 F 08/20/17 06:07 Pulse 93 08/20/17 07:50 Resp 16 08/20/17 11:09 BP 146/67 08/20/17 06:07 Pulse Ox 93 L 08/20/17 11:09 Intake & Output 08/19/17 08/20/17 08/20/17 18:59 06:59 18:59 Intake Total 600 Balance 600 Intake: Oral 600 Other: Voiding Method Diaper Diaper Diaper Incontinent Incontinent Incontinent # Voids 1 2 # Bowel Movements 0 1 - Exam - Constitutional Pleasant, 67-year-old white female, resting in bed, responds appropriately, in no acute distress General appearance: average body habitus, cooperative - EENT Eyes: EOMI, PERRLA ENT: NA/AT Ears: bilateral: normal - Neck Neck: no lymphadenopathy, normal ROM Carotids: bilateral: upstroke normal Thyroid: bilateral: normal size - Respiratory Respiratory: bilateral: Rhonchi (Bilateral bases) - Cardiovascular Rhythm: regular Heart sounds: normal: S1, S2 ankle Peripheral Edema: absent: None foot Peripheral Edema: absent: None leg Peripheral Edema: absent: None dorsalis pedis Peripheral Pulses: bilateral: Normal radial pulse Peripheral Pulses: bilateral: Normal - Gastrointestinal General gastrointestinal: no organomegaly, soft, no tenderness - Integumentary Skin tears on bilateral arms, covered with dressings Integumentary: normal turgor - Neurologic Neurologic: CNII-XII intact - Musculoskeletal Musculoskeletal: generalized weakness, strength equal bilaterally - Psychiatric Patient is alert oriented 2, person and place Psychiatric: appropriate affect, intact judgment & insight - Labs CBC & Chem 7: 08/20/17 09:59 08/20/17 09:59 Labs: Abnormal Lab Results - Last 24 Hours (Table) 08/19/17 08/19/17 08/19/17 Range/Units 11:41 16:42 20:35 Chloride (98-107) mmol/L Carbon Dioxide (22-30) mmol/L Glucose (74-99) mg/dL POC Glucose (mg/dL) 236 H 313 H 421 H (75-99) mg/dL Total Protein (6.3-8.2) g/dL Albumin (3.5-5.0) g/dL 08/20/17 08/20/17 Range/Units 07:15 09:59 Chloride 95 L (98-107) mmol/L Carbon Dioxide 33 H (22-30) mmol/L Glucose 294 H (74-99) mg/dL POC Glucose (mg/dL) 337 H (75-99) mg/dL Total Protein 5.6 L (6.3-8.2) g/dL Albumin 3.2 L (3.5-5.0) g/dL Microbiology - Last 24 Hours (Table) 08/17/17 00:25 Blood Culture - Preliminary Blood No Growth after 72 hours Assessment and Plan Plan: Assessment: #1. Acute hypoxemic respiratory failure secondary to a possible left lower lobe infiltrate, CT chest from 08/19/2017 has been reviewed, and shows an area of a patchy density in the left lower lobe, doubt pneumonia, most likely atelectasis. #2. A fall of the chair lift, secondary to generalized weakness, dizziness #3. Acute kidney injury, possibly related to ATN, patient presented with the BUN of 26, creatinine of 1.73, improved with IV hydration #4. Skin tears on bilateral arms, secondary to fall, head/cervical spine CT were within normal limits, with no evidence of fracture, or acute intracranial abnormality #5. Alzheimer's dementia #6. COPD #7. Diabetes mellitus #8. Hypertension, hyperlipidemia Plan: Continue increasing activity as tolerated, continue encouraging incentive spirometry, deep breathing and coughing. Patient has a mild chest congestion, but has an effective cough. From pulmonary standpoint the area in the left lower lobe is likely related to atelectasis, doubt acute pneumonia. Patient is stable for discharge home today on an outpatient course of oral Ceftin, patient' s stated patient had diarrhea at home prior to admission, and for that reason Zithromax can be discontinued at discharge. She can continue on her maintenance inhalers. Follow up with Dr. Navarro in 7-10 days I performed a history & physical examination of the patient and discussed their management with my nurse practitioner, Shefali Valenzuela. I reviewed the nurse practitioner's note and agree with the documented findings and plan of care. Lung sounds are positive for bibasilar crackles. The findings and the impression was discussed with the patient. I attest to the documentation by the nurse practitioner. Time with Patient: Less than 30
[2017-08-20 11:51] LABS: Glucose,Whole Blood 297 mg/dL (75-99)
--- NOTE | 2017-08-20 14:05 | P.PN ---
Subjective Progress Note Date: 08/20/17 Diagnoses on discharge: #1 Evidence of pneumonia on chest x-ray done in the emergency room patient was started on IV Rocephin and IV Zithromax. Pulmonary following. CT chest shows patchy density left lower lobe may reflect atelectasis or infiltrate #2 Underlying history of advanced dementia due to Alzheimer disease #3 Underlying history of hypertension #4 Underlying history of diabetes mellitus: Having episodes of hyperglycemia. Lantus 10 units started last night. Still having elevated blood sugars. Patient's Lantus will be increased to 15 units at bedtime. Continue scale coverage. A1c is 8.1 #5 Underlying history of hyperlipidemia #6 Underlying history of COPD #7 acute renal failure likely due to prerenal azotemia, will monitor kidney function. Kidney functions have improved #8 leukocytosis white blood count elevated at 12 likely related to pneumonia. White count normalized #9 hypomagnesemia: Magnesium 1.5. Give 1 g of magnesium sulfate. Repeat magnesium level tomorrow #10 medical debility: Consult physical therapy #11 possible atrial fibrillation noted on echo: Check EKG and place patient on telemetry, No clear evidence of Atrial fibrillation Hospital course: Lesly Al is a 67-year-old female patient who presented to [facility] emergency department for evaluation after expressing a fall at home. Patient has a chair lift going up and down the stairs. states that patient's chair was at approximately the third step down and she was found lying on the landing about 7 steps down the stairs. She had some abrasions on her left wrist, there was no clear history of any loss of consciousness. stated that patient has been declining over the last few weeks, she was seen by her primary care physician Dr. Atkins she was treated for acute conjunctivitis bilaterally she was also complaining of abdominal pain and was scheduled to have a colonoscopy as outpatient. Patient has a known past medical history significant for Alzheimer disease dementia, COPD, diabetes, hypertension, and hyperlipidemia. Patient was evaluated in the emergency room she had evidence of pneumonia and evidence of acute renal failure she was started on IV antibiotic Rocephin and Zithromax and was started on IV fluid for hydration and was admitted to medical floor. 08/18/2017 patient is new new complaints. She is asking when she can go home. She is still needing 4 L of oxygen satting at 96%. Patient reports not wearing oxygen at home. Blood sugars have been elevated. It is unclear how much insulin patient takes at home. Nursing staff will verify this with patient's . Patient denies any chest pain or shortness of breath. Denies any nausea or vomiting. Still having some cough. Denies any bowel movement changes or urinary symptoms. 08/19/2017 patient lying in bed comfortably. She is sleepy this morning. Arousable and able to answer questions. And then falls back to sleep. Denies any chest pain or shortness of breath. Denies any nausea or vomiting. Denies any bowel movement changes or urinary symptoms. Patient is still very elevated blood sugars. She had blood sugars as high as 500. Lantus was started yesterday at 10. We'll increase to 15 units at bedtime. She had a computed tomography scan of the chest showing a patchy density in the left lower lobe since her possible atelectasis versus infiltrate. Also mild bronchial wall thickening. Pulmonary service is following. Echo showed an EF of 60-65% did mention atrial fibrillation. Patient will have an EKG and be placed on telemetry continue to monitor lipomatous hypertrophy of the IAS also shows mild mitral regurgitation and mild tricuspid regurgitation On 08/20/2017 patient is alert slightly confused in no apparent distress she denies any fever or chills she has occasional cough no chest pain no shortness of breath no nausea or vomiting no abdominal pain no diarrhea and no urinary symptoms, patient was able to ambulate however her O2 sat duration dropped to 85 % while ambulating oxygen via nasal cannula at 2 L was added and O2 sat duration was up to 93%. Patient was evaluated by Dr. Barbour pulmonary and was cleared for discharge, she was given a prescription for Ceftin 500 mg twice daily for 7 days, she was also started on home oxygen, and was given a prescription for DuoNeb updrafts or new lotion up to 4 times daily as needed Objective - Vital Signs Vital signs: Vital Signs Temp 98.9 F 08/20/17 06:07 Pulse 93 08/20/17 07:50 Resp 16 08/20/17 11:09 BP 146/67 08/20/17 06:07 Pulse Ox 93 L 08/20/17 12:24 Intake & Output 08/19/17 08/20/17 08/20/17 18:59 06:59 18:59 Intake Total 600 Balance 600 Intake: Oral 600 Other: Voiding Method Diaper Diaper Diaper Incontinent Incontinent Incontinent # Voids 1 2 4 # Bowel Movements 0 1 - Labs CBC & Chem 7: 08/20/17 09:59 08/20/17 09:59 Labs: Abnormal Lab Results - Last 24 Hours (Table) 08/19/17 08/19/17 08/20/17 Range/Units 16:42 20:35 07:15 Chloride (98-107) mmol/L Carbon Dioxide (22-30) mmol/L Glucose (74-99) mg/dL POC Glucose (mg/dL) 313 H 421 H 337 H (75-99) mg/dL Total Protein (6.3-8.2) g/dL Albumin (3.5-5.0) g/dL 08/20/17 08/20/17 Range/Units 09:59 11:46 Chloride 95 L (98-107) mmol/L Carbon Dioxide 33 H (22-30) mmol/L Glucose 294 H (74-99) mg/dL POC Glucose (mg/dL) 297 H (75-99) mg/dL Total Protein 5.6 L (6.3-8.2) g/dL Albumin 3.2 L (3.5-5.0) g/dL Microbiology - Last 24 Hours (Table) 08/17/17 00:25 Blood Culture - Preliminary Blood No Growth after 72 hours
--- NOTE | 2017-08-20 15:18 | CDI ---
Last Revision, February 2017 Documentation Clarification Form Date: 08/20/2017 12:00:00 AM From: Drea Ahumada RN, CCDS Admit Date: 08/17/2017 12:36:00 AM Patient Name: Lesly Al Visit Number: [id number] Discharge Date: ATTENTION: The Clinical Documentation Specialists (CDI) and [facility] Coding Staff appreciate your assistance in clarifying documentation. Please respond to the clarification below the line at the bottom and electronically sign. The CDI & [facility] Coding staff will review the response and follow-up if needed. Please note: Queries are made part of the Legal Health Record. If you have any questions, please contact the author of this message via ITS. Dr. Nicola Sanon Conflicting documentation has been found in the medical record. 08/20 Pulmonary progress note: (Dr. Jacques) Chest CT showed a patchy density in the left lower lobe, doubt pneumonia, most likely related to atelectasis 08/20 Attending progress note: (Dr. Sanon) #1 Evidence of pneumonia on chest x ray. #8 Leukocytosis white blood count elevated at 12 likely related to pneumonia History/Risk Factors: COPD, Advanced dementia due to Alzheimer disease, Hypertension Clinical Indicators: Present after a fall at home. She was evaluated in the emergency room she had evidence of pneumonia and evidence of acute renal failure. Treatment: IV fluids Rocephin IV Zithromax PO Duoneb's inhalation PRN In your opinion what is the most clinically appropriate diagnosis for this patient? Pneumonia ruled in (specify type if known) Pneumonia ruled out Other explanation of clinical findings Unable to determine (no explanation for clinical findings) Please continue to document in your progress notes and discharge summary in order to capture severity of illness and risk of mortality. Include clinical findings that support your diagnosis. MTDD
--- NOTE | 2017-08-25 09:37 | CDI ---
Last Revision, February 2017 Documentation Clarification Form Date: 08/20/2017 12:00:00 AM From: Drea Ahumada Admit Date: 08/17/2017 12:36:00 AM Patient Name: Lesly Al Visit Number: [id number] Discharge Date: ATTENTION: The Clinical Documentation Specialists (CDI) and [facility] Coding Staff appreciate your assistance in clarifying documentation. Please respond to the clarification below the line at the bottom and electronically sign. The CDI & [facility] Coding staff will review the response and follow-up if needed. Please note: Queries are made part of the Legal Health Record. If you have any questions, please contact the author of this message via ITS. Dr. Nicola Sanon Conflicting documentation has been found in the medical record. 08/20 Pulmonary progress note: (Dr. Jacques) Chest CT showed a patchy density in the left lower lobe, doubt pneumonia, most likely related to atelectasis 08/20 Attending progress note: (Dr. Sanon) #1 Evidence of pneumonia on chest x ray. #8 Leukocytosis white blood count elevated at 12 likely related to pneumonia History/Risk Factors: COPD, Advanced dementia due to Alzheimer disease, Hypertension Clinical Indicators: Present after a fall at home. She was evaluated in the emergency room she had evidence of pneumonia and evidence of acute renal failure. Treatment: IV fluids Rocephin IV Zithromax PO Duoneb's inhalation PRN In your opinion what is the most clinically appropriate diagnosis for this patient? Pneumonia ruled in (specify type if known) Pneumonia ruled out Other explanation of clinical findings Unable to determine (no explanation for clinical findings) Please continue to document in your progress notes and discharge summary in order to capture severity of illness and risk of mortality. Include clinical findings that support your diagnosis. MTDD
== END 2017-08-20 15:06 | disposition home or self-care (01) | DRG 193 ==
LOC: EC 18:42 → 4MS4W 08-17 00:36
PROVIDERS: ADMIT Internal Medicine; ATTEND Internal Medicine
PROC: 3E0234Z Introduction of Serum, Toxoid and Vaccine into Muscle, Percutaneous Approach (ICD-10-PCS; principal; 2017-08-17)
DX: J18.9 Pneumonia, unspecified organism (principal); J96.01 Acute respiratory failure with hypoxia; J44.0 Chronic obstructive pulmonary disease with (acute) lower respiratory infection; J81.1 Chronic pulmonary edema; J98.11 Atelectasis; N17.9 Acute kidney failure, unspecified; E11.65 Type 2 diabetes mellitus with hyperglycemia; E78.5 Hyperlipidemia, unspecified; E83.42 Hypomagnesemia; F02.80 Dementia in other diseases classified elsewhere, unspecified severity, without behavioral disturbance, psychotic disturbance, mood disturbance, and anxiety; G30.9 Alzheimer's disease, unspecified; I08.1 Rheumatic disorders of both mitral and tricuspid valves; I10 Essential (primary) hypertension; I48.0 Paroxysmal atrial fibrillation; S41.112A Laceration without foreign body of left upper arm, initial encounter; S60.812A Abrasion of left wrist, initial encounter; W19.XXXA Unspecified fall, initial encounter; Y92.009 Unspecified place in unspecified non-institutional (private) residence as the place of occurrence of the external cause; S41.111A Laceration without foreign body of right upper arm, initial encounter; Z79.4 Long term (current) use of insulin; Z79.899 Other long term (current) drug therapy; Z83.3 Family history of diabetes mellitus; Z90.13 Acquired absence of bilateral breasts and nipples; Z91.81 History of falling; Z79.890 Hormone replacement therapy; Z90.49 Acquired absence of other specified parts of digestive tract; Z96.653 Presence of artificial knee joint, bilateral; R40.2362 Coma scale, best motor response, obeys commands, at arrival to emergency department; R40.2242 Coma scale, best verbal response, confused conversation, at arrival to emergency department; R40.2142 Coma scale, eyes open, spontaneous, at arrival to emergency department
CPT/HCPCS: 36415; 70450; 71046; 71250; 72125; 80053; 81003; 82150; 82550; 82553; 83036; 83605; 83690; 83735; 84484; 85025; 85610; 85730; 87040; 90715; 93005; 93306; 94640; 94760; 96365; 96366; 99285

== ENCOUNTER 2018-10-06 17:51 | Inpatient (IN) | payer MEDICARE ==
[2018-10-06] MEDS ORDERED: MORPHINE SULFATE 2 MG/ML SYRINGE IM STA (18:04)
--- NOTE | 2018-10-06 19:55 | XR ---
PROCEDURE: XR Hip Bilateral and AP pelvis - 5V DATE AND TIME: 10/06/2018 7:17 PM CLINICAL INDICATION: Pain after injury TECHNIQUE: Department protocol COMPARISON: None FINDINGS: There is no fracture or malalignment. The soft tissues are unremarkable. IMPRESSION: NO ACUTE PROCESS.
--- NOTE | 2018-10-06 19:59 | XR ---
PROCEDURE: XR thoracic spine complete - 3V DATE AND TIME: 10/06/2018 7:17 PM CLINICAL INDICATION: PHH; fall TECHNIQUE: Department protocol COMPARISON: None FINDINGS: There is diffuse osteopenia and chronic interstitial lung change present, with limited visu alization. There is no definite acute fracture. No spinal malalignment. IMPRESSION: No acute radiographic process.
--- NOTE | 2018-10-06 20:02 | XR ---
PROCEDURE: XR lumbar spine 2 or 3V - 3V DATE AND TIME: 10/06/2018 7:17 PM CLINICAL INDICATION: PHH; FALL TECHNIQUE: Department protocol COMPARISON: 09/02/2015 FINDINGS: L1 vertebroplasty change noted. There is no definite acute fracture or malalignment. Mild w edging of the T12 vertebral body is noted, but whether this is chronic or not cannot be ascertained r adiographically. There is generalized osteopenia. IMPRESSION: No definite acute radiographic process.
[2018-10-06 20:47] LABS: Anisocytosis Slight; Basophils # (A) 0.1 k/uL (0-0.2); Basophils % (A) 1 %; Eosinophils # (A) 0.4 k/uL (0-0.7); Eosinophils % (A) 3 %; HCT 35.1 % (34.0-46.0); HGB 11.4 gm/dL (11.4-16.0); Hypochromasia Slight; Lymphocytes # (A) 1.3 k/uL (1.0-4.8); Lymphocytes % (A) 11 %; MCHC 32.3 g/dL (31.0-37.0); MCV 83.5 fL (80.0-100.0); Mean Platelet Volume 9.1; Monocytes # (A) 0.6 k/uL (0-1.0); Monocytes % (A) 5 %; Neutrophils % (A) 80 %; Platelet Count 222 k/uL (150-450); RBC 4.21 m/uL (3.80-5.40); RDW 17.1 % (11.5-15.5); WBC 12.5 k/uL (3.8-10.6)
[2018-10-06] MEDS ORDERED: methylPREDNISolone SOD SUCCI 125 MG/2 ML VIAL IV STA (20:58)
[2018-10-06] MEDS ORDERED: IPRATROPIUM-ALBUTEROL 3 ML NEB INHALATION STA ×2 (20:58→21:31)
[2018-10-06 20:59] LABS: Calcium 8.5 mg/dL (8.4-10.2); Potassium 3.5 mmol/L (3.5-5.1)
--- NOTE | 2018-10-06 21:08 | ED ---
General Adult HPI - General Chief complaint: Back Pain/Injury Stated complaint: Fall, lower back pain Source: patient, family, EMS Mode of arrival: EMS Limitations: physical limitation - History of Present Illness Initial comments: 68 yo female with history of COPD, chronic hypoxia, chronic back pain presenting today for mid to low back pain after falling 2 days prior. Patient states that she was walking and tripped 2 days ago falling on her bottom. Patient states that she since she has had mid to low back pain that is with walking or rotating at the back. Patient denies numbness tingling or loss sensation of the lower extremities she denies any lower extremity weakness she denies urinary retention loss of bowel bladder control. Patient denies fever history of IV drug use or active cancer. Remaining review of systems negative. Patient unable to tolerate pain, at home norco not working, she she called EMS for transfer to hospital for evaluation. - Related Data Home Medications Medication Instructions Recorded Confirmed Furosemide [Lasix] 20 mg PO QAM 09/02/15 10/06/18 Levothyroxine Sodium [Synthroid] 50 mcg PO QAM 09/13/15 10/06/18 HYDROcodone/APAP 7.5-325MG [[place] 1 tab PO TID PRN 06/25/16 10/06/18 7.5-325] Aspirin EC [Ecotrin Low Dose] 81 mg PO BID 08/17/17 10/06/18 Omeprazole 40 mg PO DAILY 08/17/17 10/06/18 Allopurinol [Zyloprim] 100 mg PO DAILY 10/06/18 10/06/18 Atorvastatin [Lipitor] 80 mg PO DAILY 10/06/18 10/06/18 DULoxetine HCL [Cymbalta] 60 mg PO BID 10/06/18 10/06/18 Gabapentin [Neurontin] 1 - 3 cap PO TID 10/06/18 10/06/18 Insulin NPH Human Isophane 97 units SQ BID 10/06/18 10/06/18 [NovoLIN N] Metolazone [Zaroxolyn] 2.5 mg PO MO 10/06/18 10/06/18 Mirtazapine [Remeron] 30 mg PO HS 10/06/18 10/06/18 Potassium Chloride ER [K-Dur 20] 20 meq PO DAILY 10/06/18 10/06/18 amLODIPine [Norvasc] 5 mg PO DAILY 10/06/18 10/06/18 rOPINIRole HCL [Requip] 3 mg PO DAILY 10/06/18 10/06/18 Previous Rx's Medication Instructions Recorded Metoprolol Tartrate [Lopressor] 25 mg PO DAILY tab 08/20/17 Allergies Allergy/AdvReac Type Severity Reaction Status Date / Time No Known Allergies Allergy Verified 10/06/18 21:21 Review of Systems ROS Statement: Those systems with pertinent positive or pertinent negative responses have been documented in the HPI. ROS Other: All systems not noted in ROS Statement are negative. Past Medical History Past Medical History: COPD, Dementia, Diabetes Mellitus, Hyperlipidemia, Hypertension Additional Past Medical History / Comment(s): 09/02/15: Fell w/ L1 fracture. Chronic back pain due to several falls. Alzheimer's dementia. History of Any Multi-Drug Resistant Organisms: None Reported Past Surgical History: Back Surgery, Breast Surgery, Cholecystectomy, Joint Replacement Additional Past Surgical History / Comment(s): Bilateral mastectomy - fibrocystic disease. Bilateral kne replacement. Kyphoplasty L1 on 09/20/15. Past Anesthesia/Blood Transfusion Reactions: No Reported Reaction Past Psychological History: Unable to Obtain Smoking Status: Unknown if ever smoked Past Alcohol Use History: None Reported Past Drug Use History: None Reported - Past Family History Mother Family Medical History: Diabetes Mellitus Sister(s) Family Medical History: Diabetes Mellitus General Exam - General Exam Comments Initial Comments: General: The patient is awake and alert Eye: +3 mm pupils are equal, round and reactive to light, extra-ocular movements are intact. No nystagmus. There is normal conjunctiva bilaterally. No signs of icterus. Ears, nose, mouth and throat: There are moist mucous membranes and no oral lesions. Neck: The neck is supple, there is no tenderness or JVD. Cardiovascular: There is a regular rate and rhythm. No murmur, rub or gallop is appreciated. Respiratory: Respirations are non-labored, breath sounds are equal however c oarse, with diminished air movement. No stridor, rales noted. Expiratory wheeze. Gastrointestinal: Soft, non-distended, non-tender abdomen without masses or organomegaly noted. There is no rebound or guarding present. No CVA tenderness. Bowel sounds are unremarkable. Musculoskeletal: Normal inspection of the cervical thoracic and lumbar spine. Normal ROM, no tenderness of the LE. Strength 5/5 of the LE b/l. Sensation intact of the LE b/l including saddle region. Radial and DP pulses equal bilaterally 2+. Neurological: A&O x 3. CN II-XII intact, There are no obvious motor or sensory deficits. Coordination appears grossly intact. Speech is normal. Skin: Skin is warm and dry and no rashes or lesions are noted. Psychiatric: Cooperative, appropriate mood & affect, normal judgment. Limitations: physical limitation Course Vital Signs 10/06/18 10/06/18 10/06/18 17:56 20:40 21:07 Temperature 97.7 F Pulse Rate 77 73 76 Respiratory 22 20 Rate Blood Pressure 114/54 105/57 O2 Sat by Pulse 87 L 95 Oximetry 10/06/18 10/06/18 10/06/18 21:30 21:56 22:10 Temperature Pulse Rate 80 84 80 Respiratory Rate Blood Pressure O2 Sat by Pulse Oximetry - Reevaluation(s) Reevaluation #1: On PE patient noted to have coarse breath sounds, expiratory wheeze, diminised movement, pt denies chest pain or shortness of breath. After 2 duoneb treatments no improvement, CXR ordered revealing findings consistent with CHF. EKG obtained, troponin ordered. EKG Findings - EKG Comments: EKG Findings:: Ventricular rate 90 bpm, CO interval 196 ms, QRS duration 100 ms, QT/QTC 396/484. Normal sinus rhythm. There is noted incomplete right bundle branch block. Nonspecific ST and T wave after maladies. EKG interpretted by myself. Medical Decision Making - Medical Decision Making 68yo presenting for mechanical fall, back pain. No noted acute osseous injury on plain films. Patient neurovascularly intact. Patient has history of COPD--on lung exam it was noted that there was air movement diminished with coarse sounds and wheeze. Given duoneb. Pt denies CP or SOB. CXR findings consistent with heart failure. Patient has no known history. Elevated BNP. EKG was obtained revealing incomplete right bundle-branch block with nonspecific ST and T-wave changes. Recommend the patient for new onset CHF. Patient will be treated as well for COPD exacerbation with extensive extremities. Patient was scheduled DuoNeb treatments received cimetidine emergency department. Given patient's blood pressure lower aspect of normal will give 20 mg of Lasix at this time no more, until further cardiology recommendations. Dr. Arora spoke with admitting provider. Patient transferred to the floor in stabel condition. - Lab Data Result diagrams: 10/06/18 20:35 10/06/18 20:35 Lab Results 10/06/18 10/06/18 10/06/18 Range/Units 20:35 20:35 20:35 WBC 12.5 H (3.8-10.6) k/uL RBC 4.21 (3.80-5.40) m/uL Hgb 11.4 (11.4-16.0) gm/dL Hct 35.1 (34.0-46.0) % MCV 83.5 (80.0-100.0) fL MCH 27.0 (25.0-35.0) pg MCHC 32.3 (31.0-37.0) g/dL RDW 17.1 H (11.5-15.5) % Plt Count 222 (150-450) k/uL Neutrophils % 80 % Lymphocytes % 11 % Monocytes % 5 % Eosinophils % 3 % Basophils % 1 % Neutrophils # 10.0 H (1.3-7.7) k/uL Lymphocytes # 1.3 (1.0-4.8) k/uL Monocytes # 0.6 (0-1.0) k/uL Eosinophils # 0.4 (0-0.7) k/uL Basophils # 0.1 (0-0.2) k/uL Hypochromasia Slight Anisocytosis Slight Sodium 138 (137-145) mmol/L Potassium 3.5 (3.5-5.1) mmol/L Chloride 97 L (98-107) mmol/L Carbon Dioxide 36 H (22-30) mmol/L Anion Gap 5 mmol/L BUN 31 H (7-17) mg/dL Creatinine 1.22 H (0.52-1.04) mg/dL Est GFR (CKD-EPI)AfAm 52 (>60 ml/min/1.73 sqM) Est GFR (CKD-EPI)NonAf 45 (>60 ml/min/1.73 sqM) Glucose 250 H (74-99) mg/dL Calcium 8.5 (8.4-10.2) mg/dL Troponin I (0.000-0.034) ng/mL NT-Pro-B Natriuret Pep 3340 pg/mL 10/06/18 Range/Units 20:35 WBC (3.8-10.6) k/uL RBC (3.80-5.40) m/uL Hgb (11.4-16.0) gm/dL Hct (34.0-46.0) % MCV (80.0-100.0) fL MCH (25.0-35.0) pg MCHC (31.0-37.0) g/dL RDW (11.5-15.5) % Plt Count (150-450) k/uL Neutrophils % % Lymphocytes % % Monocytes % % Eosinophils % % Basophils % % Neutrophils # (1.3-7.7) k/uL Lymphocytes # (1.0-4.8) k/uL Monocytes # (0-1.0) k/uL Eosinophils # (0-0.7) k/uL Basophils # (0-0.2) k/uL Hypochromasia Anisocytosis Sodium (137-145) mmol/L Potassium (3.5-5.1) mmol/L Chloride (98-107) mmol/L Carbon Dioxide (22-30) mmol/L Anion Gap mmol/L BUN (7-17) mg/dL Creatinine (0.52-1.04) mg/dL Est GFR (CKD-EPI)AfAm (>60 ml/min/1.73 sqM) Est GFR (CKD-EPI)NonAf (>60 ml/min/1.73 sqM) Glucose (74-99) mg/dL Calcium (8.4-10.2) mg/dL Troponin I 0.016 (0.000-0.034) ng/mL NT-Pro-B Natriuret Pep pg/mL Disposition Clinical Impression: New onset of congestive heart failure, Pleural effusion, Chronic respiratory failure with hypoxia, COPD exacerbation, Fall, Intractable back pain Disposition: ADMITTED IP TO THIS HOSP Condition: Stable Is patient prescribed a controlled substance at d/c from ED?: No Time of Disposition: 23:34 Decision to Admit Reason: Admit from EC Decision Date: 10/06/18 Decision Time: 23:34
--- NOTE | 2018-10-06 21:48 | XR ---
EXAMINATION: XR chest 2V DATE AND TIME: 10/06/2018 9:39 PM CLINICAL INDICATION: PHH; Pain TECHNIQUE: Departmental protocol COMPARISON: 08/17/2017 FINDINGS: There is silhouetting of the pulmonary vasculature by a fine reticular pattern of increased attenuati on, consistent with moderate interstitial phase pulmonary edema. The pleural spaces show evidence of scant volume of pleural effusion posteriorly. The cardiac silhouette is grossly enlarged, appearing larger than the prior study. The skeletal structures and soft tissues are negative for acute findings. IMPRESSION: Cardiogenic interstitial phase pulmonary edema pattern.
[2018-10-06] MEDS ORDERED: MORPHINE SULFATE 4 MG/ML SYRINGE IVP STA (23:28)
[2018-10-06] MEDS ORDERED: FUROSEMIDE 10 MG/ML 2 ML VIAL IV ONE (23:29)
[2018-10-06] MEDS ORDERED: NALOXONE 0.4 MG/ML 1 ML VIAL IV PRN (23:30)
[2018-10-06] MEDS ORDERED: MORPHINE SULFATE 4 MG/ML SYRINGE IV PRN (23:30)
[2018-10-07 00:50] LABS: Glucose,Whole Blood 325 mg/dL (75-99)
[2018-10-07] MEDS: SODIUM CHLORIDE 0.9% 1,000 ML IV SCH (05:20)
[2018-10-07 06:46] LABS: Glucose,Whole Blood 547 mg/dL (75-99)
[2018-10-07] MEDS: INSULIN ASPART (NovoLOG) 100 UNIT/ML VIAL SQ SCH ×4 (06:52→20:23)
[2018-10-07] MEDS ORDERED: INSULIN ASPART (NovoLOG) 100 UNIT/ML VIAL SQ ONE ×3 (07:00→17:41)
[2018-10-07] MEDS ORDERED: HYDROcodone/APAP 7.5-325MG 1 EACH TAB PO PRN (07:14)
[2018-10-07] MEDS ORDERED: INSULIN DETEMIR (LEVEMIR) 100 UNIT/ML SYR SQ SCH (08:00)
[2018-10-07 08:03] LABS: Glucose,Whole Blood 528 mg/dL (75-99)
[2018-10-07] MEDS: IPRATROPIUM-ALBUTEROL 3 ML NEB INHALATION PRN ×4 (08:04→19:26)
[2018-10-07] MEDS: FUROSEMIDE 10 MG/ML 2 ML VIAL IV SCH (08:12)
[2018-10-07] MEDS: POTASSIUM CHLORIDE ER 20 MEQ TAB.ER PO SCH (08:13)
[2018-10-07] MEDS: GABAPENTIN 100 MG CAP PO SCH ×3 (08:13→20:22)
[2018-10-07] MEDS: METOPROLOL TARTRATE 25 MG TAB PO SCH (08:13)
[2018-10-07] MEDS: PANTOPRAZOLE 40 MG TABLET PO SCH (08:13)
[2018-10-07] MEDS: DULoxetine HCL 60 MG CAPSULE.DR PO SCH ×2 (08:13→20:22)
[2018-10-07] MEDS: amLODIPine 5 MG TAB PO SCH (08:14)
[2018-10-07] MEDS: ALLOPURINOL 100 MG TAB PO SCH (08:14)
[2018-10-07] MEDS: ASPIRIN 81 MG PO SCH ×2 (08:14→20:23)
[2018-10-07] MEDS: LEVOTHYROXINE 50 MCG TAB PO SCH (08:15)
--- NOTE | 2018-10-07 08:49 | CONS ---
CONSULTATION CHIEF COMPLAINT: Chest pain. Lesly is a 68-year-old lady with history of COPD, dyslipidemia, diabetes, hypertension, who presented to the hospital having had a fall and with back pain. She has mid to lower back pain, which is currently being addressed by the primary care physician. Cardiology has been consulted because of elevated troponin. The patient has shortness of breath which is chronic and unchanged. Has had an echocardiogram last year that showed normal LV systolic function. A BNP on this admission was 3340, which is definitely elevated. An EKG shows sinus rhythm with incomplete right bundle branch block. At the time of my evaluation this morning, patient appears comfortable at rest, but seems to be in some musculoskeletal pain. PAST MEDICAL HISTORY: Significant for diastolic heart failure, hypertension, hypothyroidism, diabetes. MEDICATIONS: At home included Norvasc 5 q, daily, K-Dur 20 q. daily, Requip, omeprazole, Remeron, Lopressor, Zaroxolyn, Synthroid, insulin, Neurontin, Lasix, Cymbalta, Lipitor and aspirin. ALLERGIES: There are no known drug allergies. FAMILY HISTORY: Negative for premature coronary artery disease. SOCIAL HISTORY: Negative for current smoking, EtOH abuse, or drug abuse. REVIEW OF SYSTEMS: HEENT is unremarkable. CARDIAC: As described above. RESPIRATORY: As described above. GI: Negative. GENITOURINARY: Negative. MUSCULOSKELETAL: Significant for fall and musculoskeletal pain. PSYCHOSOCIAL: Negative. ENDOCRINE: Negative. DERM: Negative. CONSTITUTIONAL: Negative. ONCOLOGICAL: Negative. Rest of the system review is not relevant. PHYSICAL EXAM: Heart rate is around 90 beats per minute. Blood pressure is 1277/67, respiratory. Chest exam reveals diminished air entry with occasional rhonchi bilaterally. Heart exam reveals first and second heart sounds. No gallop. Abdomen is soft. Exam of the extremities did not reveal any edema. Peripheral pulses are felt. LABS: Show that the creatinine is 1.2. Potassium is 3.5. Troponin is 0.016. BNP is 3340. The chest x-ray revealed pulmonary congestion. ASSESSMENT: 1. Chest pain, atypical probably musculoskeletal. 2. Acute exacerbation of chronic diastolic heart failure. 3. Hypertension. 4. Chronic obstructive pulmonary disease. PLAN: Continue the patient on IV Lasix for now. I will obtain a 2D echo. MMODL / IJN: [id number] /
[2018-10-07] MEDS ORDERED: LEVOFLOXACIN 750MG-D5W PMX 750 MG in DEXTROSE/WATER 1 150ML.BAG IVPB SCH (09:30)
--- NOTE | 2018-10-07 10:54 | P.HPIM ---
History of Present Illness H&P Date: 10/07/18 Chief Complaint: back pain Lesly Al is a 68 yo F with PMH of COPD, T2DM, HTN, CAD, GERD who presented to [facility] ED with severe back pain after a fall at home 2 days ago. She states that she was walking and tripped 2 days ago falling on her bottom. Since then she has had severe LBP worse with twisting and bending. Patient denies numbness tingling or loss sensation of the lower extremities. She has not been able to do much except lay in bed the past 2 days. Pt states her home norco did not help at all and her pain was so severe she called EMS for further evalu ation. In the ED she was hypoxic and required 4 L O2 to maintain saturations above 88%. Labs showed WBC 12.5, Cr 1.2, BNP 3000, trop negative. Thoracic, pelvic and hip XR negative, CXR with interstitial prominence. EKG on admission with incomplete RBBB. She denies chest pain or dyspnea with rest. She endorses dyspnea on exertion and orthopnea. Pt states she has had orthopnea and leg swelling for a little less than a year. She has never formally been diagnosed with CHF although an echo last year did show diastolic dysfunction and she takes 20 mg lasix PO daily. Review of Systems All systems: negative Constitutional: Reports chronic pain, Reports malaise, Reports weakness, Denies chills, Denies fever Eyes: denies blurred vision, denies pain Ears, nose, mouth and throat: Denies headache, Denies sore throat Cardiovascular: Reports decreased exercise tolerance, Reports dyspnea on exertion, Reports leg edema, Reports orthopnea, Denies chest pain, Denies shortness of breath Respiratory: Denies cough Gastrointestinal: Denies abdominal pain, Denies diarrhea, Denies nausea, Denies vomiting Genitourinary: Denies dysuria, Denies hematuria Musculoskeletal: Denies myalgias Integumentary: Denies pruritus, Denies rash Neurological: Denies numbness, Denies weakness Psychiatric: Denies anxiety, Denies depression Endocrine: Denies fatigue, Denies weight change Past Medical History Past Medical History: COPD, Dementia, Diabetes Mellitus, Hyperlipidemia, Hypertension Additional Past Medical History / Comment(s): 09/02/15: Fell w/ L1 fracture. Chronic back pain due to several falls. Alzheimer's dementia. History of Any Multi-Drug Resistant Organisms: None Reported Past Surgical History: Back Surgery, Breast Surgery, Cholecystectomy, Joint Replacement Additional Past Surgical History / Comment(s): Bilateral mastectomy - fibrocystic disease. Bilateral kne replacement. Kyphoplasty L1 on 09/20/15. Past Anesthesia/Blood Transfusion Reactions: No Reported Reaction Past Psychological History: Unable to Obtain Smoking Status: Unknown if ever smoked Past Alcohol Use History: None Reported Past Drug Use History: None Reported - Past Family History Mother Family Medical History: Diabetes Mellitus Sister(s) Family Medical History: Diabetes Mellitus Medications and Allergies Home Medications Medication Instructions Recorded Confirmed Type Furosemide [Lasix] 20 mg PO QAM 09/02/15 10/06/18 History Levothyroxine Sodium [Synthroid] 50 mcg PO QAM 09/13/15 10/06/18 History HYDROcodone/APAP 7.5-325MG [[place] 1 tab PO TID PRN 06/25/16 10/06/18 History 7.5-325] Aspirin EC [Ecotrin Low Dose] 81 mg PO BID 08/17/17 10/06/18 History Omeprazole 40 mg PO DAILY 08/17/17 10/06/18 History Metoprolol Tartrate [Lopressor] 25 mg PO DAILY tab 08/20/17 10/06/18 Rx Allopurinol [Zyloprim] 100 mg PO DAILY 10/06/18 10/06/18 History Atorvastatin [Lipitor] 80 mg PO DAILY 10/06/18 10/06/18 History DULoxetine HCL [Cymbalta] 60 mg PO BID 10/06/18 10/06/18 History Gabapentin [Neurontin] 1 - 3 cap PO TID 10/06/18 10/06/18 History Insulin NPH Human Isophane 97 units SQ BID 10/06/18 10/06/18 History [NovoLIN N] Metolazone [Zaroxolyn] 2.5 mg PO MO 10/06/18 10/06/18 History Mirtazapine [Remeron] 30 mg PO HS 10/06/18 10/06/18 History Potassium Chloride ER [K-Dur 20] 20 meq PO DAILY 10/06/18 10/06/18 History amLODIPine [Norvasc] 5 mg PO DAILY 10/06/18 10/06/18 History rOPINIRole HCL [Requip] 3 mg PO DAILY 10/06/18 10/06/18 History Allergies Allergy/AdvReac Type Severity Reaction Status Date / Time No Known Allergies Allergy Verified 10/06/18 21:21 Physical Exam Vitals: Vital Signs Temp Pulse Pulse Resp BP BP Pulse Ox 10/07/18 08:18 100 10/07/18 08:05 100 10/07/18 08:00 98.9 F 102 H 22 115/60 92 L 10/07/18 04:00 98.6 F 89 19 127/67 92 L 10/07/18 01:11 90 L 10/07/18 00:45 98.4 F 100 24 130/65 90 L 10/06/18 22:10 80 10/06/18 21:56 84 10/06/18 21:30 80 10/06/18 21:07 76 10/06/18 20:40 73 20 105/57 95 10/06/18 17:56 97.7 F 77 22 114/54 87 L Intake and Output 10/06/18 10/07/18 10/07/18 22:59 06:59 14:59 Intake Total 222 Balance 222 Intake: Oral 222 Other: Voiding Method Diaper Diaper Weight 86.183 kg 104.5 kg General: Well developed, NAD. Vitals reviewed Eyes: PERRL, EOMI, conjunctiva normal HENT: normocephalic, mucus membranes moist. On 4 L O2 Neck: supple, no JVD Lungs: normal inspiratory effort. Rhonchi throughout. Rales at bases. Expiratory wheezing CV: Regular rate and rhythm, systolic murmur. Peripheral pulses 2+ Abdomen: soft, nondistended, no organomegaly Lymph: no cervical or axillary LAD Skin: warm and dry. Neuro: A&Ox3, normal mood and affect Results CBC & Chem 7: 10/06/18 20:35 10/06/18 20:35 Labs: Abnormal Lab Results - Last 24 Hours (Table) 10/06/18 10/06/18 10/07/18 Range/Units 20:35 20:35 00:46 WBC 12.5 H (3.8-10.6) k/uL RDW 17.1 H (11.5-15.5) % Neutrophils # 10.0 H (1.3-7.7) k/uL Chloride 97 L (98-107) mmol/L Carbon Dioxide 36 H (22-30) mmol/L BUN 31 H (7-17) mg/dL Creatinine 1.22 H (0.52-1.04) mg/dL Glucose 250 H (74-99) mg/dL POC Glucose (mg/dL) 325 H (75-99) mg/dL 10/07/18 10/07/18 Range/Units 06:44 08:00 WBC (3.8-10.6) k/uL RDW (11.5-15.5) % Neutrophils # (1.3-7.7) k/uL Chloride (98-107) mmol/L Carbon Dioxide (22-30) mmol/L BUN (7-17) mg/dL Creatinine (0.52-1.04) mg/dL Glucose (74-99) mg/dL POC Glucose (mg/dL) 547 H 528 H (75-99) mg/dL Thrombosis Risk Factor Assmnt - Choose All That Apply Any of the Below Risk Factors Present?: Yes Each Factor Represents 1 point: Heart failure (<1month), Obesity (BMI >25) Each Risk Factor Represents 2 Points: Age 61-74 years Other congenital or acquired thrombophilia - If yes, enter type in comment: No Thrombosis Risk Factor Assessment Total Risk Factor Score: 4 Thrombosis Risk Factor Assessment Level: Moderate Risk Assessment and Plan (1) COPD exacerbation Current Visit: Yes Status: Acute Code(s): J44.1 - CHRONIC OBSTRUCTIVE PULMONARY DISEASE W (ACUTE) EXACERBATION SNOMED Code(s): 422453794 (2) Chronic respiratory failure with hypoxia Current Visit: Yes Status: Acute Code(s): J96.11 - CHRONIC RESPIRATORY FAILURE WITH HYPOXIA SNOMED Code(s): 512349464 (3) New onset of congestive heart failure Current Visit: Yes Status: Acute Code(s): I50.9 - HEART FAILURE, UNSPECIFIED SNOMED Code(s): 33754374 (4) Intractable back pain Current Visit: Yes Status: Acute Code(s): M54.9 - DORSALGIA, UNSPECIFIED SNOMED Code(s): 221976974 (5) Essential hypertension Current Visit: Yes Status: Acute Code(s): I10 - ESSENTIAL (PRIMARY) HYPERTENSION SNOMED Code(s): 35322297 Plan: 1. Chronic respiratory failure. COPD exacerbation. On 4 L O2. Given solumedrol in the ED. Continue solumedrol bid and start levaquin for COPD exacerbation. Check procalcitonin. Duonebs per RT. Titrate O2 to maintain saturation above 88% 2. New onset CHF. RBBB. Cardiology consulted. Obtain echo this admission. Continue 20 mg IV lasix daily 3. Intractable back pain. No acute fracture. Continue home norco and gabapentin 4. HTN. Continue home norvasc and toprol
[2018-10-07] MEDS: methylPREDNISolone SOD SUCCI 40 MG/ML 1 ML VIAL IV SCH ×2 (10:59→20:23)
[2018-10-07] MEDS: ENOXAPARIN 40 MG/0.4 ML SYRINGE SQ SCH (11:10)
--- NOTE | 2018-10-07 11:40 | ECHOF ---
Referral Reason:chf MEASUREMENTS -------- HEIGHT: 167.6 cm WEIGHT: 104.3 kg BP: RVIDd: 3.5 cm (< 3.3) IVSd: 1.7 cm (0.6 - 1.1) LVIDd: 3.6 cm (3.9 - 5.3) LVPWd: 1.6 cm (0.6 - 1.1) IVSs: 2.0 cm LVIDs: 3.1 cm LVPWs: 2.1 cm LA Diam: 3.9 cm (2.7 - 3.8) LAESV Index (A-L): 19.83 ml/m Ao Diam: 3.4 cm (2.0 - 3.7) AV Cusp: 1.8 cm (1.5 - 2.6) MV EXCURSION: 15.271 mm (> 18.000) MV EF SLOPE: 40 mm/s (70 - 150) EPSS: 0.3 cm MV E Zen: 1.44 m/s MV DecT: 225 ms MV A Zen: 1.54 m/s MV E/A Ratio: 0.93 RAP: 5.00 mmHg RVSP: 52.38 mmHg FINDINGS -------- Sinus rhythm. This was a technically adequate study. The left ventricular size is normal. There is severe concentric left ventricular hypertrophy. Ove rall left ventricular systolic function is normal with, an EF between 60 - 65 %. The right ventricle is mildly enlarged. Normal LA size by volume 22+/-6 ml/m2. The right atrium is normal in size. Lipomatous Hypertrophy of the atrial septum is present There is mild aortic valve sclerosis. The mitral valve leaflets are mildly thickened. Mild mitral annular calcification present. Mild m itral regurgitation is present. Mild tricuspid regurgitation present. There is moderate pulmonary hypertension. The right ventric ular systolic pressure, as measured by Doppler, is 52.38mmHg. Trace/mild (physiologic) pulmonic regurgitation. The aortic root size is normal. Normal inferior vena cava with normal inspiratory collapse consistent with estimated right atrial pre ssure of 5 mmHg. There is no pericardial effusion. CONCLUSIONS -------- 1. Sinus rhythm. 2. This was a technically adequate study. 3. The left ventricular size is normal. 4. There is severe concentric left ventricular hypertrophy. 5. Overall left ventricular systolic function is normal with, an EF between 60 - 65 %. 6. The right ventricle is mildly enlarged. 7. Normal LA size by volume 22+/-6 ml/m2. 8. The right atrium is normal in size. 9. Lipomatous Hypertrophy of the atrial septum is present 10. There is mild aortic valve sclerosis. 11. The mitral valve leaflets are mildly thickened. 12. Mild mitral annular calcification present. 13. Mild mitral regurgitation is present. 14. Mild tricuspid regurgitation present. 15. There is moderate pulmonary hypertension. 16. The right ventricular systolic pressure, as measured by Doppler, is 52.38mmHg. 17. Trace/mild (physiologic) pulmonic regurgitation. 18. The aortic root size is normal. 19. Normal inferior vena cava with normal inspiratory collapse consistent with estimated right atrial pressure of 5 mmHg. 20. There is no pericardial effusion. EVENTS INTERN: Vale Longo RDCS
[2018-10-07 11:47] LABS: Glucose,Whole Blood 490 mg/dL (75-99)
[2018-10-07 11:53] LABS: Anisocytosis Slight; Basophils % (A) 0 %; Eosinophils % (A) 0 %; HCT 35.5 % (34.0-46.0); HGB 10.8 gm/dL (11.4-16.0); Hypochromasia Slight; Lymphocytes # (A) 0.7 k/uL (1.0-4.8); Lymphocytes % (A) 7 %; MCH 25.9 pg (25.0-35.0); MCHC 30.3 g/dL (31.0-37.0); MCV 85.5 fL (80.0-100.0); Mean Platelet Volume 8.5; Monocytes # (A) 0.3 k/uL (0-1.0); Monocytes % (A) 3 %; Neutrophils % (A) 89 %; Platelet Count 247 k/uL (150-450); RBC 4.16 m/uL (3.80-5.40); RDW 16.9 % (11.5-15.5); WBC 10.1 k/uL (3.8-10.6)
[2018-10-07 12:06] LABS: Calcium 8.7 mg/dL (8.4-10.2); Potassium 3.6 mmol/L (3.5-5.1)
[2018-10-07] MEDS ORDERED: INSULIN ASPART (NovoLOG) 100 UNIT/ML VIAL SQ SCH (12:30)
[2018-10-07 16:56] LABS: Glucose,Whole Blood 391 mg/dL (75-99)
[2018-10-07] MEDS ORDERED: INSULIN DETEMIR (LEVEMIR) 100 UNIT/ML SYR SQ ONE (18:00)
[2018-10-07] MEDS: HYDROcodone/APAP 7.5-325MG 1 EACH TAB PO PRN (18:34)
[2018-10-07] MEDS: ATORVASTATIN 80 MG TAB PO SCH (20:23)
[2018-10-07] MEDS: MIRTAZAPINE 15 MG TAB PO SCH (20:23)
[2018-10-07 20:27] LABS: Glucose,Whole Blood 333 mg/dL (75-99)
[2018-10-07] MEDS ORDERED: HYDROcodone/APAP 7.5-325MG 1 EACH TAB PO ONE (21:58)
[2018-10-08] MEDS: SODIUM CHLORIDE 0.9% 1,000 ML IV SCH ×2 (03:13→20:39)
[2018-10-08] MEDS: LEVOTHYROXINE 50 MCG TAB PO SCH (05:28)
[2018-10-08] MEDS: HYDROcodone/APAP 7.5-325MG 1 EACH TAB PO PRN ×2 (05:29→13:34)
[2018-10-08 06:02] LABS: Glucose,Whole Blood 420 mg/dL (75-99)
[2018-10-08] MEDS: INSULIN ASPART (NovoLOG) 100 UNIT/ML VIAL SQ SCH ×4 (06:15→20:42)
[2018-10-08] MEDS ORDERED: INSULIN DETEMIR (LEVEMIR) 100 UNIT/ML SYR SQ SCH (07:00)
[2018-10-08 07:31] LABS: Calcium 9.1 mg/dL (8.4-10.2); Potassium 3.8 mmol/L (3.5-5.1)
[2018-10-08 07:32] LABS: Anisocytosis Slight; Basophils % (A) 0 %; Eosinophils % (A) 0 %; HCT 31.8 % (34.0-46.0); Hypochromasia Slight; Lymphocytes # (A) 0.7 k/uL (1.0-4.8); Lymphocytes % (A) 5 %; MCH 26.7 pg (25.0-35.0); MCHC 31.3 g/dL (31.0-37.0); MCV 85.4 fL (80.0-100.0); Mean Platelet Volume 9.4; Monocytes # (A) 0.4 k/uL (0-1.0); Monocytes % (A) 3 %; Neutrophils # (A) 13.9 k/uL (1.3-7.7); Neutrophils % (A) 92 %; Platelet Count 259 k/uL (150-450); RBC 3.73 m/uL (3.80-5.40); RDW 17.3 % (11.5-15.5); WBC 14.1 k/uL (3.8-10.6)
[2018-10-08] MEDS ORDERED: INSULIN ASPART (NovoLOG) 100 UNIT/ML VIAL SQ ONE ×2 (07:54→12:41)
[2018-10-08] MEDS: IPRATROPIUM-ALBUTEROL 3 ML NEB INHALATION PRN ×3 (08:38→20:40)
[2018-10-08] MEDS: FUROSEMIDE 10 MG/ML 2 ML VIAL IV SCH (08:50)
[2018-10-08] MEDS: ALLOPURINOL 100 MG TAB PO SCH (08:51)
[2018-10-08] MEDS: METOPROLOL TARTRATE 25 MG TAB PO SCH (08:51)
[2018-10-08] MEDS: methylPREDNISolone SOD SUCCI 40 MG/ML 1 ML VIAL IV SCH ×2 (08:51→20:42)
[2018-10-08] MEDS: ENOXAPARIN 40 MG/0.4 ML SYRINGE SQ SCH (08:51)
[2018-10-08] MEDS: DULoxetine HCL 60 MG CAPSULE.DR PO SCH ×2 (08:52→20:42)
[2018-10-08] MEDS: GABAPENTIN 100 MG CAP PO SCH ×2 (08:52→15:10)
[2018-10-08] MEDS: ASPIRIN 81 MG PO SCH ×2 (08:52→20:42)
[2018-10-08] MEDS: POTASSIUM CHLORIDE ER 20 MEQ TAB.ER PO SCH (08:52)
[2018-10-08] MEDS: PANTOPRAZOLE 40 MG TABLET PO SCH (08:52)
[2018-10-08] MEDS: amLODIPine 5 MG TAB PO SCH (08:52)
--- NOTE | 2018-10-08 10:37 | P.PN ---
Subjective Progress Note Date: 10/08/18 This is 68-year-old female with known history of COPD, diabetes, hyperlipidemia, hypertension, who presented to the hospital after experiencing a fall, she was also having some severe back pain. Reason cardiology was asked to see the patient was because of abnormality in troponin. Patient states that she also had some shortness of breath with productive cough. Echocardiogram last year revealed a normal left ventricular systolic function. Her BNP on this admission was 3340, EKG showed normal sinus rhythm with an incomplete right bundle branch block pattern. Patient also had a pro calcitonin level performed which came back to be elevated suggesting the presence of pneumonia. Patient w as seen and examined this morning, states overall her breathing is stable. She denied any chest discomfort, continues to have a cough although she states today that the cough is much less productive. Blood pressure this morning 110/70 with a heart rate in the 80s, 94% on 4 L of oxygen. White blood cell count 14.1, hemoglobin 10.0, platelet count 259. Sodium 135, potassium 3.8, BUN 48 and creatinine 1.2. Patient was initiated on 20 mg of IV Lasix daily yesterday, she states that her urine output overall has been minimal. Echocardiogram with Doppler study was performed which revealed an ejection fraction of 60-65%, moderate pulmonary hypertension noted. Objective - Vital Signs Vital signs: Vital Signs Temp 97.9 F 10/08/18 04:00 Pulse 84 10/08/18 08:50 Resp 18 10/08/18 04:00 BP 109/72 10/08/18 04:00 Pulse Ox 94 L 10/08/18 04:00 Intake & Output 10/07/18 10/08/18 10/08/18 18:59 06:59 18:59 Intake Total 666 Balance 666 Weight 104.5 kg 104.4 kg Intake: Oral 666 Other: Voiding Method Diaper Diaper - Exam PHYSICAL EXAMINATION: GENERAL: 68-year-old female in no acute distress at the time of my examination HEENT: Head is atraumatic, normocephalic. Pupils equal, round. Sclera anicteric. Conjunctiva are clear. Mucous membranes of the mouth are moist. Neck is supple. There is no elevated jugular venous pressure. No carotid bruit is heard. HEART EXAMINATION: Heart S1, S2 normal. No murmur or gallop heard. CHEST EXAMINATION: Lungs reveal scattered coarse rhonchi throughout. ABDOMEN: Soft, nontender. Bowel sounds are heard. No organomegaly noted. EXTREMITIES: 2+ peripheral pulses with no evidence of peripheral edema and no calf tenderness noted. NEUROLOGIC patient is awake, alert and oriented 3 . - Labs CBC & Chem 7: 10/08/18 06:29 10/08/18 06:29 Labs: Abnormal Lab Results - Last 24 Hours (Table) 10/07/18 10/07/18 10/07/18 Range/Units 11:05 11:05 11:05 WBC (3.8-10.6) k/uL RBC (3.80-5.40) m/uL Hgb 10.8 L (11.4-16.0) gm/dL Hct (34.0-46.0) % MCHC 30.3 L (31.0-37.0) g/dL RDW 16.9 H (11.5-15.5) % Neutrophils # 9.0 H (1.3-7.7) k/uL Lymphocytes # 0.7 L (1.0-4.8) k/uL Sodium (137-145) mmol/L Chloride 94 L (98-107) mmol/L Carbon Dioxide 33 H (22-30) mmol/L BUN 36 H (7-17) mg/dL Creatinine 1.22 H (0.52-1.04) mg/dL Glucose 461 H (74-99) mg/dL POC Glucose (mg/dL) (75-99) mg/dL Procalcitonin 0.41 H (0.02-0.09) ng/mL 10/07/18 10/07/18 10/07/18 Range/Units 11:45 16:54 20:22 WBC (3.8-10.6) k/uL RBC (3.80-5.40) m/uL Hgb (11.4-16.0) gm/dL Hct (34.0-46.0) % MCHC (31.0-37.0) g/dL RDW (11.5-15.5) % Neutrophils # (1.3-7.7) k/uL Lymphocytes # (1.0-4.8) k/uL Sodium (137-145) mmol/L Chloride (98-107) mmol/L Carbon Dioxide (22-30) mmol/L BUN (7-17) mg/dL Creatinine (0.52-1.04) mg/dL Glucose (74-99) mg/dL POC Glucose (mg/dL) 490 H 391 H 333 H (75-99) mg/dL Procalcitonin (0.02-0.09) ng/mL 10/08/18 10/08/18 10/08/18 Range/Units 06:01 06:29 06:29 WBC 14.1 H (3.8-10.6) k/uL RBC 3.73 L (3.80-5.40) m/uL Hgb 10.0 L (11.4-16.0) gm/dL Hct 31.8 L (34.0-46.0) % MCHC (31.0-37.0) g/dL RDW 17.3 H (11.5-15.5) % Neutrophils # 13.9 H (1.3-7.7) k/uL Lymphocytes # 0.7 L (1.0-4.8) k/uL Sodium 135 L (137-145) mmol/L Chloride 93 L (98-107) mmol/L Carbon Dioxide 34 H (22-30) mmol/L BUN 48 H (7-17) mg/dL Creatinine 1.22 H (0.52-1.04) mg/dL Glucose 366 H (74-99) mg/dL POC Glucose (mg/dL) 420 H (75-99) mg/dL Procalcitonin (0.02-0.09) ng/mL Assessment and Plan Plan: Assessment and plan #1 COPD exacerbation with possible pneumonia, elevated pro-calcitonin level #2 diastolic congestive heart failure acute on chronic #3 hypertension #4 COPD #5 diabetes #6 hyperlipidemia #7 non- [place] elevated troponin, likely secondary to hypoxia Plan Patient has been initiated on antibiotics for her pneumonia, we'll continue the 20 mg of IV Lasix for 24 hours. Further recommendations to follow. DNP note has been reviewed, I agree with a documented findings and plan of care. Patient was seen and examined.
[2018-10-08 11:30] LABS: Glucose,Whole Blood 330 mg/dL (75-99)
[2018-10-08] MEDS ORDERED: INSULIN DETEMIR (LEVEMIR) 100 UNIT/ML SYR SQ ONE (12:42)
[2018-10-08 16:47] LABS: Glucose,Whole Blood 194 mg/dL (75-99)
[2018-10-08 20:34] LABS: Glucose,Whole Blood 235 mg/dL (75-99)
[2018-10-08] MEDS: GABAPENTIN 300 MG CAP PO SCH (20:41)
[2018-10-08] MEDS: HYDROcodone/APAP 10-325MG 1 EACH TAB PO PRN (20:42)
[2018-10-08] MEDS: ATORVASTATIN 80 MG TAB PO SCH (20:42)
[2018-10-08] MEDS: MIRTAZAPINE 15 MG TAB PO SCH (20:42)
--- NOTE | 2018-10-08 22:06 | P.PN ---
Subjective Progress Note Date: 10/08/18 Lesly Al is a 68 yo F with PMH of COPD, T2DM, HTN, CAD, GERD who presented to [facility] ED with severe back pain after a fall at home 2 days ago. She states that she was walking and tripped 2 days ago falling on her bottom. Since then she has had severe LBP worse with twisting and bending. Patient denies numbness tingling or loss sensation of the lower extremities. She has not been able to do much except lay in bed the past 2 days. Pt states her home norco did not help at all and her pain was so severe she called EMS for further evaluation. In the ED she was hypoxic and required 4 L O2 to maintain saturations above 88%. Labs showed WBC 12.5, Cr 1.2, BNP 3000, trop negative. Thoracic, pelvic and hip XR negative, CXR with interstitial prominence. EKG on admission with incomplete RBBB. She denies chest pain or dyspnea with rest. She endorses dyspnea on exertion and orthopnea. Pt states she has had orthopnea and leg swelling for a little less than a year. She has never formally been ember gnosed with CHF although an echo last year did show diastolic dysfunction and she takes 20 mg lasix PO daily. 10/08. She continues to complain of severe pain, which was improved with gabapentin and norco. She feels her breathing is improving with treatment but continues to have cough and requiring 4 L O2. Denies chest pain. Objective - Vital Signs Vital signs: Vital Signs Temp 98.6 F 10/08/18 20:00 Pulse 79 10/08/18 20:51 Resp 20 10/08/18 20:00 BP 118/59 10/08/18 20:00 Pulse Ox 96 10/08/18 20:43 Intake & Output 10/08/18 10/08/18 10/09/18 06:59 18:59 06:59 Intake Total 40 Balance 40 Weight 104.4 kg Intake: Oral 40 Other: Voiding Method Diaper Diaper Diaper - Exam Constitutional: resting in bed, NAD. Vitals reviewed HENT: on 4 L O2 via NC, mucus membranes moist CV: RRR, murmur Lungs: diminished air entry, rhonchi throughout, rales at bases Ext: pulses 2+ - Labs CBC & Chem 7: 10/08/18 06:29 10/08/18 06:29 Labs: Abnormal Lab Results - Last 24 Hours (Table) 10/08/18 10/08/18 10/08/18 Range/Units 06:01 06:29 06:29 WBC 14.1 H (3.8-10.6) k/uL RBC 3.73 L (3.80-5.40) m/uL Hgb 10.0 L (11.4-16.0) gm/dL Hct 31.8 L (34.0-46.0) % RDW 17.3 H (11.5-15.5) % Neutrophils # 13.9 H (1.3-7.7) k/uL Lymphocytes # 0.7 L (1.0-4.8) k/uL Sodium 135 L (137-145) mmol/L Chloride 93 L (98-107) mmol/L Carbon Dioxide 34 H (22-30) mmol/L BUN 48 H (7-17) mg/dL Creatinine 1.22 H (0.52-1.04) mg/dL Glucose 366 H (74-99) mg/dL POC Glucose (mg/dL) 420 H (75-99) mg/dL 10/08/18 10/08/18 10/08/18 Range/Units 11:29 16:46 20:33 WBC (3.8-10.6) k/uL RBC (3.80-5.40) m/uL Hgb (11.4-16.0) gm/dL Hct (34.0-46.0) % RDW (11.5-15.5) % Neutrophils # (1.3-7.7) k/uL Lymphocytes # (1.0-4.8) k/uL Sodium (137-145) mmol/L Chloride (98-107) mmol/L Carbon Dioxide (22-30) mmol/L BUN (7-17) mg/dL Creatinine (0.52-1.04) mg/dL Glucose (74-99) mg/dL POC Glucose (mg/dL) 330 H 194 H 235 H (75-99) mg/dL Assessment and Plan (1) COPD exacerbation Current Visit: Yes Status: Acute Code(s): J44.1 - CHRONIC OBSTRUCTIVE PULMONARY DISEASE W (ACUTE) EXACERBATION SNOMED Code(s): 911277265 (2) Chronic respiratory failure with hypoxia Current Visit: Yes Status: Acute Code(s): J96.11 - CHRONIC RESPIRATORY FAILURE WITH HYPOXIA SNOMED Code(s): 700979175 (3) New onset of congestive heart failure Current Visit: Yes Status: Acute Code(s): I50.9 - HEART FAILURE, UNSPECIFIED SNOMED Code(s): 07554189 (4) Intractable back pain Current Visit: Yes Status: Acute Code(s): M54.9 - DORSALGIA, UNSPECIFIED SNOMED Code(s): 774642941 (5) Essential hypertension Current Visit: Yes Status: Acute Code(s): I10 - ESSENTIAL (PRIMARY) HYPERTENSION SNOMED Code(s): 45633606 Plan: 1. Chronic respiratory failure. COPD exacerbation. On 4 L O2. Procal 0.5. Continue solumedrol bid and levaquin for COPD exacerbation. Duonebs per RT. Titrate O2 to maintain saturation above 88% 2. New onset CHF. RBBB. Cardiology consulted. Continue 20 mg IV lasix daily 3. Intractable back pain. No acute fracture. Continue home norco and gabapentin 4. HTN. Continue home norvasc and toprol
[2018-10-09 06:07] LABS: Glucose,Whole Blood 333 mg/dL (75-99)
[2018-10-09] MEDS: INSULIN DETEMIR (LEVEMIR) 100 UNIT/ML SYR SQ SCH (07:16)
[2018-10-09] MEDS: INSULIN ASPART (NovoLOG) 100 UNIT/ML VIAL SQ SCH ×4 (07:16→21:24)
[2018-10-09] MEDS: LEVOTHYROXINE 50 MCG TAB PO SCH (07:16)
[2018-10-09] MEDS: HYDROcodone/APAP 10-325MG 1 EACH TAB PO PRN ×2 (07:18→19:48)
[2018-10-09] MEDS: IPRATROPIUM-ALBUTEROL 3 ML NEB INHALATION PRN ×4 (07:40→20:28)
[2018-10-09 08:14] LABS: Calcium 9.5 mg/dL (8.4-10.2); Potassium 3.8 mmol/L (3.5-5.1)
[2018-10-09] MEDS: methylPREDNISolone SOD SUCCI 40 MG/ML 1 ML VIAL IV SCH ×2 (08:31→19:47)
[2018-10-09] MEDS: FUROSEMIDE 10 MG/ML 2 ML VIAL IV SCH (08:32)
[2018-10-09] MEDS: ALLOPURINOL 100 MG TAB PO SCH (08:34)
[2018-10-09] MEDS: PANTOPRAZOLE 40 MG TABLET PO SCH (08:34)
[2018-10-09] MEDS: ASPIRIN 81 MG PO SCH ×2 (08:34→19:48)
[2018-10-09] MEDS: METOPROLOL TARTRATE 25 MG TAB PO SCH (08:34)
[2018-10-09] MEDS: POTASSIUM CHLORIDE ER 20 MEQ TAB.ER PO SCH (08:34)
[2018-10-09] MEDS: DULoxetine HCL 60 MG CAPSULE.DR PO SCH ×2 (08:34→19:48)
[2018-10-09] MEDS: amLODIPine 5 MG TAB PO SCH (08:34)
[2018-10-09] MEDS: ENOXAPARIN 40 MG/0.4 ML SYRINGE SQ SCH (08:34)
[2018-10-09] MEDS: GABAPENTIN 300 MG CAP PO SCH ×2 (08:35→19:48)
[2018-10-09 08:51] LABS: Anisocytosis Slight; Basophils % (A) 0 %; Eosinophils % (A) 0 %; HCT 33.1 % (34.0-46.0); HGB 10.9 gm/dL (11.4-16.0); Hypochromasia Slight; Lymphocytes # (A) 0.5 k/uL (1.0-4.8); Lymphocytes % (A) 6 %; MCH 28.2 pg (25.0-35.0); MCV 85.4 fL (80.0-100.0); Mean Platelet Volume 11.5; Monocytes # (A) 0.4 k/uL (0-1.0); Monocytes % (A) 4 %; Neutrophils # (A) 8.1 k/uL (1.3-7.7); Neutrophils % (A) 89 %; Platelet Count 256 k/uL (150-450); RBC 3.88 m/uL (3.80-5.40)
[2018-10-09] MEDS ORDERED: LEVOFLOXACIN 750MG-D5W PMX 750 MG in DEXTROSE/WATER 1 150ML.BAG IVPB SCH (11:00)
--- NOTE | 2018-10-09 11:17 | P.PN ---
Subjective Progress Note Date: 10/09/18 Lesly Al is a 68 yo F with PMH of COPD, T2DM, HTN, CAD, GERD who presented to [facility] ED with severe back pain after a fall at home 2 days ago. She states that she was walking and tripped 2 days ago falling on her bottom. Since then she has had severe LBP worse with twisting and bending. Patient denies numbness tingling or loss sensation of the lower extremities. She has not been able to do much except lay in bed the past 2 days. Pt states her home norco did not help at all and her pain was so severe she called EMS for further evaluation. In the ED she was hypoxic and required 4 L O2 to maintain saturations above 88%. Labs showed WBC 12.5, Cr 1.2, BNP 3000, trop negative. Thoracic, pelvic and hip XR negative, CXR with interstitial prominence. EKG on admission with incomplete RBBB. She denies chest pain or dyspnea with rest. She endorses dyspnea on exertion and orthopnea. Pt states she has had orthopnea and leg swelling for a little less than a year. She has never formally been ember gnosed with CHF although an echo last year did show diastolic dysfunction and she takes 20 mg lasix PO daily. 10/08. She continues to complain of severe pain, which was improved with gabapentin and norco. She feels her breathing is improving with treatment but continues to have cough and requiring 4 L O2. Denies chest pain. 10/09. Her back pain is still her chief concern and she feels she needs something stronger. She continues with productive cough, denies chest pain. Her O2 requirement is stable at 4 L. Objective - Vital Signs Vital signs: Vital Signs Temp 97.9 F 10/09/18 08:00 Pulse 84 10/09/18 11:14 Resp 20 10/09/18 08:00 BP 135/60 10/09/18 08:00 Pulse Ox 93 L 10/09/18 08:00 Intake & Output 10/08/18 10/09/18 10/09/18 18:59 06:59 18:59 Intake Total 40 60 Balance 40 60 Weight 84 kg Intake: Oral 40 60 Other: Voiding Method Diaper Diaper Diaper - Exam Constitutional: resting in bed, NAD. Vitals reviewed HENT: on 4 L O2 via NC, mucus membranes moist CV: RRR, murmur Lungs: diminished air entry, rhonchi throughout Ext: pulses 2+ - Labs CBC & Chem 7: 10/09/18 06:00 10/09/18 07:43 Labs: Abnormal Lab Results - Last 24 Hours (Table) 10/08/18 10/08/18 10/08/18 Range/Units 11:29 16:46 20:33 Hgb (11.4-16.0) gm/dL Hct (34.0-46.0) % RDW (11.5-15.5) % Neutrophils # (1.3-7.7) k/uL Lymphocytes # (1.0-4.8) k/uL Chloride (98-107) mmol/L Carbon Dioxide (22-30) mmol/L BUN (7-17) mg/dL Glucose (74-99) mg/dL POC Glucose (mg/dL) 330 H 194 H 235 H (75-99) mg/dL 10/09/18 10/09/18 10/09/18 Range/Units 06:00 06:06 07:43 Hgb 10.9 L (11.4-16.0) gm/dL Hct 33.1 L (34.0-46.0) % RDW 17.0 H (11.5-15.5) % Neutrophils # 8.1 H (1.3-7.7) k/uL Lymphocytes # 0.5 L (1.0-4.8) k/uL Chloride 96 L (98-107) mmol/L Carbon Dioxide 36 H (22-30) mmol/L BUN 50 H (7-17) mg/dL Glucose 338 H (74-99) mg/dL POC Glucose (mg/dL) 333 H (75-99) mg/dL Assessment and Plan (1) COPD exacerbation Current Visit: Yes Status: Acute Code(s): J44.1 - CHRONIC OBSTRUCTIVE PULMONARY DISEASE W (ACUTE) EXACERBATION SNOMED Code(s): 970581165 (2) Chronic respiratory failure with hypoxia Current Visit: Yes Status: Acute Code(s): J96.11 - CHRONIC RESPIRATORY FAILURE WITH HYPOXIA SNOMED Code(s): 275829580 (3) New onset of congestive heart failure Current Visit: Yes Status: Acute Code(s): I50.9 - HEART FAILURE, UNSPECIFIED SNOMED Code(s): 50473833 (4) Intractable back pain Current Visit: Yes Status: Acute Code(s): M54.9 - DORSALGIA, UNSPECIFIED SNOMED Code(s): 710531592 (5) Essential hypertension Current Visit: Yes Status: Acute Code(s): I10 - ESSENTIAL (PRIMARY) HYPERTENSION SNOMED Code(s): 61101641 Plan: 1. Chronic respiratory failure. COPD exacerbation. On 4 L O2. Procal 0.5. Continue solumedrol bid and levaquin for COPD exacerbation. Duonebs per RT. Titrate O2 to maintain saturation above 88% 2. Diastolic CHF. RBBB. Cardiology consulted. Continue 20 mg IV lasix daily, co nsider transition back to PO lasix tomorrow 3. Intractable back pain. No acute fracture. Continue home norco and gabapentin 4. HTN. Continue home norvasc and toprol
[2018-10-09 11:46] LABS: Glucose,Whole Blood 315 mg/dL (75-99)
--- NOTE | 2018-10-09 12:21 | PN ---
PROGRESS NOTE Lesly is a 68-year-old lady with history of COPD, diabetes, hypertension, dyslipidemia, who was admitted to hospital following a fall and chest discomfort that seems musculoskeletal. She has an elevated BNP, but really has been diagnosed with pneumonia on this admission. At the time of my evaluation this morning, she appears comfortable at rest. On 20 mg of IV Lasix which can be switched to p.o. now. PHYSICAL EXAMINATION: On exam, comfortable at rest. Heart rate is 84 beats per minute. Blood pressure is 134/60. Respiratory rate is 18. Chest exam reveals good air entry bilaterally. Heart exam reveals first and second heart sounds. No gallop. Examination of extremities did not reveal any edema. Peripheral pulses are felt. LABS: Labs show that the hemoglobin is 10.9, platelet count is 256, potassium is 3.8 creatinine is 0.9. ASSESSMENT: 1. Pneumonia. 2. Recent fall. 3. Acute on chronic diastolic heart failure. PLAN: Switch the Lasix to p.o. and continue rest of her medications. MMODL / IJN: [id number] /
[2018-10-09] MEDS: MORPHINE SULFATE 4 MG/ML SYRINGE IVP PRN ×2 (12:54→17:46)
[2018-10-09 16:38] LABS: Glucose,Whole Blood 293 mg/dL (75-99)
[2018-10-09] MEDS: ATORVASTATIN 80 MG TAB PO SCH (19:48)
[2018-10-09] MEDS: MIRTAZAPINE 15 MG TAB PO SCH (19:48)
[2018-10-09] MEDS: SODIUM CHLORIDE 0.9% 1,000 ML IV SCH (20:29)
[2018-10-09 21:02] LABS: Glucose,Whole Blood 224 mg/dL (75-99)
[2018-10-10] MEDS: HYDROcodone/APAP 10-325MG 1 EACH TAB PO PRN ×3 (03:42→20:11)
[2018-10-10 06:03] LABS: Glucose,Whole Blood 343 mg/dL (75-99)
[2018-10-10] MEDS: INSULIN ASPART (NovoLOG) 100 UNIT/ML VIAL SQ SCH ×4 (06:53→21:21)
[2018-10-10] MEDS: INSULIN DETEMIR (LEVEMIR) 100 UNIT/ML SYR SQ SCH (06:53)
[2018-10-10] MEDS: LEVOTHYROXINE 50 MCG TAB PO SCH (06:53)
[2018-10-10 08:13] LABS: Anisocytosis Slight; Basophils % (A) 0 %; Eosinophils % (A) 0 %; HCT 36.2 % (34.0-46.0); HGB 11.3 gm/dL (11.4-16.0); Hypochromasia Slight; Lymphocytes # (A) 0.5 k/uL (1.0-4.8); Lymphocytes % (A) 5 %; MCH 26.9 pg (25.0-35.0); MCHC 31.2 g/dL (31.0-37.0); MCV 86.1 fL (80.0-100.0); Mean Platelet Volume 9.6; Monocytes # (A) 0.6 k/uL (0-1.0); Monocytes % (A) 6 %; Neutrophils # (A) 8.4 k/uL (1.3-7.7); Neutrophils % (A) 89 %; Platelet Count 255 k/uL (150-450); RBC 4.21 m/uL (3.80-5.40); RDW 17.3 % (11.5-15.5); WBC 9.5 k/uL (3.8-10.6)
[2018-10-10] MEDS: IPRATROPIUM-ALBUTEROL 3 ML NEB INHALATION PRN ×4 (08:33→19:37)
[2018-10-10] MEDS: PANTOPRAZOLE 40 MG TABLET PO SCH (08:39)
[2018-10-10] MEDS: METOPROLOL TARTRATE 25 MG TAB PO SCH (08:40)
[2018-10-10] MEDS: GABAPENTIN 300 MG CAP PO SCH ×2 (08:41→20:11)
[2018-10-10] MEDS: ENOXAPARIN 40 MG/0.4 ML SYRINGE SQ SCH (08:41)
[2018-10-10] MEDS: ASPIRIN 81 MG PO SCH ×2 (08:41→20:11)
[2018-10-10] MEDS: amLODIPine 5 MG TAB PO SCH (08:41)
[2018-10-10] MEDS: POTASSIUM CHLORIDE ER 20 MEQ TAB.ER PO SCH (08:41)
[2018-10-10] MEDS: ALLOPURINOL 100 MG TAB PO SCH (08:41)
[2018-10-10] MEDS: DULoxetine HCL 60 MG CAPSULE.DR PO SCH ×2 (08:41→20:11)
[2018-10-10] MEDS: methylPREDNISolone SOD SUCCI 40 MG/ML 1 ML VIAL IV SCH (08:42)
[2018-10-10] MEDS: MORPHINE SULFATE 4 MG/ML SYRINGE IVP PRN ×2 (08:43→18:08)
[2018-10-10] MEDS ORDERED: FUROSEMIDE 20 MG TAB PO SCH (09:00)
--- NOTE | 2018-10-10 09:02 | XR ---
EXAMINATION TYPE: XR chest 1V portable DATE OF EXAM: 10/10/2018 HISTORY: Cough. REFERENCE: Previous study dated 10/06/2018. FINDINGS: Heart is enlarged. There is vascular congestion and mild pulmonary edema. I could not exclu de a small left effusion. IMPRESSION: 1. CONTINUING CHANGES OF PULMONARY EDEMA. 2. I COULD NOT EXCLUDE SMALL, LEFT
--- NOTE | 2018-10-10 10:26 | P.PN ---
Subjective Progress Note Date: 10/10/18 This is 68-year-old female with known history of COPD, diabetes, hyperlipidemia, hypertension, who presented to the hospital after experiencing a fall, she was also having some severe back pain. Reason cardiology was asked to see the patient was because of abnormality in troponin. Patient states that she also had some shortness of breath with productive cough. Echocardiogram last year revealed a normal left ventricular systolic function. Her BNP on this admission was 3340, EKG showed normal sinus rhythm with an incomplete right bundle branch block pattern. Patient also had a pro calcitonin level performed which came back to be elevated suggesting the presence of pneumonia. Patient w as seen and examined this morning, states overall her breathing is stable. She denied any chest discomfort, continues to have a cough although she states today that the cough is much less productive. Blood pressure this morning 110/70 with a heart rate in the 80s, 94% on 4 L of oxygen. White blood cell count 14.1, hemoglobin 10.0, platelet count 259. Sodium 135, potassium 3.8, BUN 48 and creatinine 1.2. Patient was initiated on 20 mg of IV Lasix daily yesterday, she states that her urine output overall has been minimal. Echocardiogram with Doppler study was performed which revealed an ejection fraction of 60-65%, moderate pulmonary hypertension noted. 10/10/2018 Patient seen and examined this morning, complaining of back discomfort, breathing is overall stable. Blood pressure 134/70 with a heart rate in the 70s, 93% on 4 L of oxygen. White blood cell count 9.5, hemoglobin 11.3, platelet count 255. Objective - Vital Signs Vital signs: Vital Signs Temp 98.2 F 10/10/18 08:00 Pulse 74 10/10/18 08:46 Resp 22 10/10/18 08:00 BP 135/70 10/10/18 08:00 Pulse Ox 93 L 10/10/18 08:35 Intake & Output 10/09/18 10/10/18 10/10/18 18:59 06:59 18:59 Intake Total 238 230 Balance 238 230 Weight 83.8 kg Intake: Oral 238 230 Other: Voiding Method Diaper Diaper Diaper # Voids 2 - Exam PHYSICAL EXAMINATION: GENERAL: 68-year-old female in no acute distress at the time of my examination HEENT: Head is atraumatic, normocephalic. Pupils equal, round. Sclera anicteric. Conjunctiva are clear. Mucous membranes of the mouth are moist. Neck is supple. There is no elevated jugular venous pressure. No carotid bruit is heard. HEART EXAMINATION: Heart S1, S2 normal. No murmur or gallop heard. CHEST EXAMINATION: Lungs reveal scattered coarse rhonchi throughout. ABDOMEN: Soft, nontender. Bowel sounds are heard. No organomegaly noted. EXTREMITIES: 2+ peripheral pulses with no evidence of peripheral edema and no calf tenderness noted. NEUROLOGIC patient is awake, alert and oriented 3 . - Labs CBC & Chem 7: 10/10/18 06:48 10/09/18 07:43 Labs: Abnormal Lab Results - Last 24 Hours (Table) 10/09/18 10/09/18 10/09/18 Range/Units 11:45 16:37 21:01 Hgb (11.4-16.0) gm/dL RDW (11.5-15.5) % Neutrophils # (1.3-7.7) k/uL Lymphocytes # (1.0-4.8) k/uL POC Glucose (mg/dL) 315 H 293 H 224 H (75-99) mg/dL 10/10/18 10/10/18 Range/Units 06:02 06:48 Hgb 11.3 L (11.4-16.0) gm/dL RDW 17.3 H (11.5-15.5) % Neutrophils # 8.4 H (1.3-7.7) k/uL Lymphocytes # 0.5 L (1.0-4.8) k/uL POC Glucose (mg/dL) 343 H (75-99) mg/dL Assessment and Plan Plan: Assessment and plan #1 COPD exacerbation with possible pneumonia, elevated pro-calcitonin level #2 diastolic congestive heart failure acute on chronic #3 hypertension #4 COPD #5 diabetes #6 hyperlipidemia #7 non- [place] elevated troponin, likely secondary to hypoxia #8 fall Plan Patient's IV Lasix has been discontinued and she's been started on oral diuretics. We will continue with her current medications. DNP note has been reviewed, I agree with a documented findings and plan of care. Patient was seen and examined.
[2018-10-10 12:19] LABS: Glucose,Whole Blood 284 mg/dL (75-99)
[2018-10-10 17:15] LABS: Glucose,Whole Blood 205 mg/dL (75-99)
[2018-10-10] MEDS: methylPREDNISolone SOD SUCCI 125 MG/2 ML VIAL IV SCH ×2 (18:11→23:14)
[2018-10-10] MEDS: FUROSEMIDE 10 MG/ML 2 ML VIAL IV SCH (18:12)
[2018-10-10] MEDS: FORMOTEROL FUMARATE 20 MCG/2 ML NEBU INHALATION SCH (19:37)
[2018-10-10] MEDS: BUDESONIDE 1 MG/2 ML NEBU INHALATION SCH (19:37)
[2018-10-10] MEDS: ATORVASTATIN 80 MG TAB PO SCH (20:11)
[2018-10-10] MEDS: MIRTAZAPINE 15 MG TAB PO SCH (20:11)
--- NOTE | 2018-10-10 20:13 | PN ---
PROGRESS NOTE DATE OF SERVICE: 10/10/2018 I am covering for Dr. Lambert. HISTORY OF PRESENT ILLNESS: This 68-year-old woman who was admitted with multiple medical problems including COPD exacerbation as well as chronic hypoxic respiratory failure also had pneumonia and history of fall also. The patient is on IV Lasix. Today the patient also complaining, apparently the patient aspirated last night according to the staff and the patient has got coarse crackles. The chest x-ray showed continuing change of pulmonary edema at this time. The patient being closely monitored. PAST MEDICAL HISTORY: Reviewed. REVIEW OF SYSTEMS: Cardiovascular: As mentioned earlier. Respiratory: As mentioned earlier. GI no nausea or vomiting. : As mentioned earlier. CENTRAL NERVOUS SYSTEM: No numbness or weakness. CURRENT MEDICATIONS: Reviewed and include: 1. Arrington 10 mg q.6h p.r.n. 2. DuoNeb q.i.d. and p.r.n. 3. Zyloprim 100 mg p.r.n. 4. Norvasc 5 mg p.o. daily. 5. Aspirin 81 mg p.o. b.i.d. 6. 80 mg q.h.s. 7. Cymbalta 60 mg b.i.d. 8. Lovenox 40 mg subcu daily. 9. Lasix 20 mg daily. 10.Neurontin 300 mg p.o. b.i.d. 11.NovoLog scale. 12.Levemir 200 units daily. 13.Levaquin 750 mg q.48h. 14.Synthroid 50 mcg q.a.m. 15.Solu-Medrol 60 IV b.i.d. 16.Lopressor 25 mg p.o. daily. 17.Remeron 30 mg q.h.s. 18.Morphine sulfate 4 mg IV q.8h p.r.n. 19.Narcan 0.2 q.2 p.r.n. 20.Protonix 40 mg. 21.K-Dur 10 mEq p.o. daily. 22.Requip 3 mg p.o. daily. PHYSICAL EXAM: Patient is alert and oriented x3. Pulse 76. Blood pressure 134/70, respiration 20, temperature 98.7, pulse ox 99% on 4 L. HEENT: Conjunctivae normal. Oral mucosa moist. NECK is no jugular venous distention. No carotid bruit. No lymph node enlargement. Cardiovascular systems: S1, S2 muffled. RESPIRATION: Breath sounds diminished in the bases. Bilateral scattered rhonchi and crackles. ABDOMEN: Soft. Nontender. LEGS: No edema. No swelling. NERVOUS SYSTEM: No focal deficits. LAB STUDIES: WBC 9.2, hemoglobin 11.3. ASSESSMENT: 1. Congestive heart failure, acute exacerbation with acute on chronic diastolic dysfunction, ejection fraction 60-65 percent. 2. Possible aspiration with aspiration pneumonia. 3. Chronic obstructive pulmonary disease exacerbation. 4. Chronic hypoxic respiratory failure. 5. Intractable back pain. 6. Essential hypertension. RECOMMENDATIONS AND DISCUSSION: Recommend to continue current medications, management and symptomatic treatment. I would recommend initiate IV diuretics for now because of the significant change in chest x-ray. Possibly aspirations also considered. I would recommend intravenous Zosyn at this time and continue with steroids. Continue with the rest of the medications. The prognosis guarded because of multiple complex medical issues. I would also recommend resume the home medications and monitor labs also. Prognosis guarded. Further recommendations to follow. MMODL / IJN: [id number] /
[2018-10-10 21:02] LABS: Glucose,Whole Blood 223 mg/dL (75-99)
[2018-10-10] MEDS: INSULIN NPH 300 UNIT/3 ML VIAL SQ SCH (21:21)
[2018-10-10] MEDS: SODIUM CHLORIDE 0.9% 1,000 ML IV SCH (21:22)
[2018-10-11 02:14] LABS: Glucose,Whole Blood 208 mg/dL (75-99)
[2018-10-11] MEDS: HYDROcodone/APAP 10-325MG 1 EACH TAB PO PRN ×3 (02:20→14:50)
[2018-10-11 06:04] LABS: Glucose,Whole Blood 191 mg/dL (75-99)
[2018-10-11] MEDS: INSULIN DETEMIR (LEVEMIR) 100 UNIT/ML SYR SQ SCH (06:34)
[2018-10-11] MEDS: methylPREDNISolone SOD SUCCI 125 MG/2 ML VIAL IV SCH ×4 (06:34→23:30)
[2018-10-11] MEDS: FUROSEMIDE 10 MG/ML 2 ML VIAL IV SCH ×2 (06:34→17:43)
[2018-10-11] MEDS: INSULIN ASPART (NovoLOG) 100 UNIT/ML VIAL SQ SCH ×4 (06:34→21:38)
[2018-10-11] MEDS: LEVOTHYROXINE 50 MCG TAB PO SCH (06:35)
[2018-10-11] MEDS: IPRATROPIUM-ALBUTEROL 3 ML NEB INHALATION PRN ×3 (07:51→15:29)
[2018-10-11] MEDS: FORMOTEROL FUMARATE 20 MCG/2 ML NEBU INHALATION SCH ×2 (07:54→20:04)
[2018-10-11] MEDS: BUDESONIDE 1 MG/2 ML NEBU INHALATION SCH ×2 (07:54→20:04)
[2018-10-11] MEDS ORDERED: LEVOFLOXACIN 750 MG TAB PO SCH (09:00)
[2018-10-11] MEDS: ALLOPURINOL 100 MG TAB PO SCH (09:16)
[2018-10-11] MEDS: ASPIRIN 81 MG PO SCH ×2 (09:16→21:43)
[2018-10-11] MEDS: POTASSIUM CHLORIDE ER 20 MEQ TAB.ER PO SCH (09:16)
[2018-10-11] MEDS: amLODIPine 5 MG TAB PO SCH (09:16)
[2018-10-11] MEDS: PANTOPRAZOLE 40 MG TABLET PO SCH (09:16)
[2018-10-11] MEDS: GABAPENTIN 300 MG CAP PO SCH ×2 (09:17→21:43)
[2018-10-11] MEDS: DULoxetine HCL 60 MG CAPSULE.DR PO SCH ×2 (09:19→21:43)
[2018-10-11] MEDS: ENOXAPARIN 40 MG/0.4 ML SYRINGE SQ SCH (09:19)
[2018-10-11] MEDS: METOPROLOL TARTRATE 25 MG TAB PO SCH (09:19)
[2018-10-11] MEDS: INSULIN NPH 300 UNIT/3 ML VIAL SQ SCH ×2 (09:34→21:49)
[2018-10-11 12:20] LABS: Glucose,Whole Blood 207 mg/dL (75-99)
[2018-10-11 12:56] LABS: Anisocytosis Slight; Basophils % (A) 0 %; Eosinophils # (A) 0.1 k/uL (0-0.7); Eosinophils % (A) 0 %; HCT 38.2 % (34.0-46.0); HGB 11.8 gm/dL (11.4-16.0); Hypochromasia Slight; Lymphocytes # (A) 0.5 k/uL (1.0-4.8); Lymphocytes % (A) 5 %; MCV 83.6 fL (80.0-100.0); Mean Platelet Volume 8.7; Monocytes # (A) 0.5 k/uL (0-1.0); Monocytes % (A) 5 %; Neutrophils # (A) 9.8 k/uL (1.3-7.7); Neutrophils % (A) 90 %; Platelet Count 275 k/uL (150-450); RBC 4.56 m/uL (3.80-5.40); RDW 16.7 % (11.5-15.5); WBC 10.9 k/uL (3.8-10.6)
[2018-10-11 13:04] LABS: Calcium 9.5 mg/dL (8.4-10.2); Potassium 3.6 mmol/L (3.5-5.1)
[2018-10-11 17:07] LABS: Glucose,Whole Blood 183 mg/dL (75-99)
[2018-10-11] MEDS: MORPHINE SULFATE 4 MG/ML SYRINGE IVP PRN (17:43)
--- NOTE | 2018-10-11 20:34 | PN ---
PROGRESS NOTE DATE OF SERVICE: 10/11/2018 I am covering for Dr. Lambert. HISTORY OF PRESENT ILLNESS: This 68-year-old woman who was admitted with CHF acute exacerbation also had suspected possibly aspiration. Patient has significant cough while eating at times according to the staff. A chest x-ray done though showed some changes of pulmonary edema and barium swallow is being tentatively planned with speech pathology on Friday. PAST MEDICAL HISTORY: History reviewed. REVIEW OF SYSTEMS: CARDIOVASCULAR: As mentioned earlier. RESPIRATORY: As mentioned earlier. GI: No nausea. : No dysuria. NERVOUS SYSTEM: No numbness or weakness. CURRENT MEDICATIONS: 1. Igo 10 mg q.6h p.r.n. 2. DuoNeb q.i.d. and p.r.n. 3. Zyloprim 100 mg p.o. daily. 4. Norvasc 5 mg. 5. Aspirin 81 mg. 6. Lipitor 80 mg q.h.s. 7. Pulmicort 1 mg b.i.d. 8. Cymbalta 60 mg b.i.d. 9. Lovenox 40 mg subcu daily. 10.Perforomist 20 mcg b.i.d. 11.Lasix 20 mg IV b.i.d. 12.Neurontin 300 mg p.o. b.i.d. 13.NovoLog scale. 14.Levemir 400 units daily. 15.Novolin 90/70 subcu b.i.d. 16.Levaquin 750 daily. 17.Synthroid 50 mcg q.a.m. 18.Solu-Medrol 60 IV q.6h. 19.Lopressor 25 mg. 20.Remeron 30 mg p.o. q.h.s. 21.Morphine sulfate 4 mg q.8 p.r.n. 22.Narcan p.r.n. 23.Protonix 40 mg daily. 24.K-Dur 20 mEq p.o. 25.Requip 3 mg p.o. daily. PHYSICAL EXAM: Patient is alert, oriented x3. Pulse 88, blood pressure 140/60, respiration 20, temperature 97 degrees, pulse ox 89 percent on 4 L. HEENT: Conjunctivae normal. Oral mucosa moist. NECK: No jugular venous distention. No carotid bruit. No lymph node enlargement. CARDIOVASCULAR: S1, S2. No S3, no S4. RESPIRATORY: Breath sounds diminished in the bases. Bilateral scattered rhonchi and expiratory wheezing and crackles. ABDOMEN: Soft, nontender. LEGS: No edema. NERVOUS SYSTEM: Higher function as mentioned earlier. Moves all 4 limbs. No focal motor deficits. LYMPHATICS: No lymphadenopathy in the neck, axillae, groin. SKIN: No ulcer, rashes, bleeding. JOINTS: No active deforming arthropathy. LABS: WBC 10.9, hemoglobin 11.8. Sodium 140, potassium 3.6, other labs are noted. ASSESSMENT: 1. Congestive heart failure acute exacerbation with acute on chronic diastolic dysfunction, ejection fraction 60-65 percent with possible acute hypoxic hypercarbic respiratory failure. 2. Possible aspiration with aspiration pneumonia. 3. Chronic obstructive pulmonary disease acute exacerbation. 4. Chronic hypoxic respiratory failure. 5. Intractable low back pain. 6. Hypertension. 7. Increased WBC possibly secondary to steroids. RECOMMENDATIONS AND DISCUSSION: This 68-year-old woman who presented with multiple complex medical issues, at this time we will monitor the patient closely. Continue the current management, symptomatic treatment. I recommend to continue with steroids as well as bronchodilators and antibiotics. I would also recommend continue with IV Lasix twice daily. Monitor fluid and electrolytes balance closely. Modified barium swallow will be ordered with speech pathology regarding the evaluation aspiration. The prognosis is guarded because of multiple complex medical issues and Dr. Lambert will follow. MMODL / IJN: [id number] /
[2018-10-11 21:00] LABS: Glucose,Whole Blood 129 mg/dL (75-99)
[2018-10-11] MEDS: SODIUM CHLORIDE 0.9% 1,000 ML IV SCH (21:43)
[2018-10-11] MEDS: ATORVASTATIN 80 MG TAB PO SCH (21:43)
[2018-10-11] MEDS: MIRTAZAPINE 15 MG TAB PO SCH (21:43)
[2018-10-12] MEDS: MORPHINE SULFATE 4 MG/ML SYRINGE IVP PRN ×2 (00:52→15:07)
[2018-10-12 03:17] LABS: Glucose,Whole Blood 115 mg/dL (75-99)
[2018-10-12] MEDS: LEVOTHYROXINE 50 MCG TAB PO SCH (06:08)
[2018-10-12] MEDS: methylPREDNISolone SOD SUCCI 125 MG/2 ML VIAL IV SCH ×4 (06:09→23:58)
[2018-10-12] MEDS: FUROSEMIDE 10 MG/ML 2 ML VIAL IV SCH ×2 (06:09→17:26)
[2018-10-12] MEDS: INSULIN ASPART (NovoLOG) 100 UNIT/ML VIAL SQ SCH ×4 (06:45→20:34)
[2018-10-12 06:46] LABS: Glucose,Whole Blood 74 mg/dL (75-99)
[2018-10-12] MEDS: INSULIN DETEMIR (LEVEMIR) 100 UNIT/ML SYR SQ SCH (07:02)
[2018-10-12] MEDS: BUDESONIDE 1 MG/2 ML NEBU INHALATION SCH ×2 (07:35→18:59)
[2018-10-12] MEDS: FORMOTEROL FUMARATE 20 MCG/2 ML NEBU INHALATION SCH ×2 (07:35→18:59)
[2018-10-12] MEDS: IPRATROPIUM-ALBUTEROL 3 ML NEB INHALATION PRN ×3 (07:35→18:59)
[2018-10-12] MEDS: DULoxetine HCL 60 MG CAPSULE.DR PO SCH ×2 (09:38→20:34)
[2018-10-12] MEDS: HYDROcodone/APAP 10-325MG 1 EACH TAB PO PRN ×3 (09:38→23:58)
[2018-10-12] MEDS: GABAPENTIN 300 MG CAP PO SCH ×2 (09:38→20:33)
[2018-10-12] MEDS: PANTOPRAZOLE 40 MG TABLET PO SCH (09:38)
[2018-10-12] MEDS: METOPROLOL TARTRATE 25 MG TAB PO SCH (09:39)
[2018-10-12] MEDS: LEVOFLOXACIN 750 MG TAB PO SCH (09:39)
[2018-10-12] MEDS: ASPIRIN 81 MG PO SCH ×2 (09:39→20:33)
[2018-10-12] MEDS: amLODIPine 5 MG TAB PO SCH (09:39)
[2018-10-12] MEDS: POTASSIUM CHLORIDE ER 20 MEQ TAB.ER PO SCH (09:39)
[2018-10-12] MEDS: ENOXAPARIN 40 MG/0.4 ML SYRINGE SQ SCH (09:39)
[2018-10-12] MEDS: INSULIN NPH 300 UNIT/3 ML VIAL SQ SCH ×2 (09:39→21:56)
[2018-10-12] MEDS: ALLOPURINOL 100 MG TAB PO SCH (09:39)
--- NOTE | 2018-10-12 11:11 | P.PN ---
Subjective Progress Note Date: 10/12/18 Lesly Al is a 68 yo F with PMH of COPD, T2DM, HTN, CAD, GERD who presented to [facility] ED with severe back pain after a fall at home 2 days ago. She states that she was walking and tripped 2 days ago falling on her bottom. Since then she has had severe LBP worse with twisting and bending. Patient denies numbness tingling or loss sensation of the lower extremities. She has not been able to do much except lay in bed the past 2 days. Pt states her home norco did not help at all and her pain was so severe she called EMS for further evaluation. In the ED she was hypoxic and required 4 L O2 to maintain saturations above 88%. Labs showed WBC 12.5, Cr 1.2, BNP 3000, trop negative. Thoracic, pelvic and hip XR negative, CXR with interstitial prominence. EKG on admission with incomplete RBBB. She denies chest pain or dyspnea with rest. She endorses dyspnea on exertion and orthopnea. Pt states she has had orthopnea and leg swelling for a little less than a year. She has never formally been diag nosed with CHF although an echo last year did show diastolic dysfunction and she takes 20 mg lasix PO daily. 10/08. She continues to complain of severe pain, which was improved with gabapentin and norco. She feels her breathing is improving with treatment but continues to have cough and requiring 4 L O2. Denies chest pain. 10/09. Her back pain is still her chief concern and she feels she needs something stronger. She continues with productive cough, denies chest pain. Her O2 requirement is stable at 4 L. 10/12/2018 Modified barium swallow pending. Afebrile, WBC 10.9. O2 sats in the mid to high 90s on 4 L nasal cannula, at baseline. Denies chest pain, palpitations or increased shortness of breath. Denies lightheadedness or dizziness or focal deficits. Objective - Vital Signs Vital signs: Vital Signs Temp 98.6 F 10/12/18 03:50 Pulse 81 10/12/18 08:15 Resp 22 10/12/18 08:15 BP 120/60 10/12/18 08:15 Pulse Ox 95 10/12/18 08:15 Intake & Output 10/11/18 10/12/18 10/12/18 18:59 06:59 18:59 Intake Total 440 Balance 440 Weight 103 kg Intake: Oral 440 Other: Voiding Method Diaper Diaper Incontinent # Voids 4 - Exam Constitutional: resting in bed, NAD. Vitals reviewed HENT: on 4 L O2 via NC, mucus membranes moist CV: RRR, murmur Lungs: diminished air entry, rhonchi throughout Ext: pulses 2+ - Labs CBC & Chem 7: 10/11/18 12:38 10/11/18 12:38 Labs: Abnormal Lab Results - Last 24 Hours (Table) 10/11/18 10/11/18 10/11/18 Range/Units 11:55 12:38 12:38 WBC 10.9 H (3.8-10.6) k/uL RDW 16.7 H (11.5-15.5) % Neutrophils # 9.8 H (1.3-7.7) k/uL Lymphocytes # 0.5 L (1.0-4.8) k/uL Chloride 95 L (98-107) mmol/L Carbon Dioxide 42 H* (22-30) mmol/L BUN 44 H (7-17) mg/dL Glucose 181 H (74-99) mg/dL POC Glucose (mg/dL) 207 H (75-99) mg/dL 10/11/18 10/11/18 10/12/18 Range/Units 16:59 20:59 03:14 WBC (3.8-10.6) k/uL RDW (11.5-15.5) % Neutrophils # (1.3-7.7) k/uL Lymphocytes # (1.0-4.8) k/uL Chloride (98-107) mmol/L Carbon Dioxide (22-30) mmol/L BUN (7-17) mg/dL Glucose (74-99) mg/dL POC Glucose (mg/dL) 183 H 129 H 115 H (75-99) mg/dL 10/12/18 Range/Units 06:45 WBC (3.8-10.6) k/uL RDW (11.5-15.5) % Neutrophils # (1.3-7.7) k/uL Lymphocytes # (1.0-4.8) k/uL Chloride (98-107) mmol/L Carbon Dioxide (22-30) mmol/L BUN (7-17) mg/dL Glucose (74-99) mg/dL POC Glucose (mg/dL) 74 L (75-99) mg/dL Assessment and Plan Assessment: (1) COPD exacerbation Current Visit: Yes Status: Acute Code(s): J44.1 - CHRONIC OBSTRUCTIVE PULMONARY DISEASE W (ACUTE) EXACERBATION SNOMED Code(s): 523713187 (2) Chronic respiratory failure with hypoxia Current Visit: Yes Status: Acute Code(s): J96.11 - CHRONIC RESPIRATORY F AILURE WITH HYPOXIA SNOMED Code(s): 083376044 (3) New onset of congestive heart failure Current Visit: Yes Status: Acute Code(s): I50.9 - HEART FAILURE, UNSPECIFIED SNOMED Code(s): 09880495 (4) possible aspiration with aspiration pneumonia, MBS pending (4) Intractable back pain Current Visit: Yes Status: Acute Code(s): M54.9 - DORSALGIA, UNSPECIFIED SNOMED Code(s): 144691280 (5) Essential hypertension Current Visit: Yes Status: Acute Code(s): I10 - ESSENTIAL (PRIMARY) HYPERTENSION SNOMED Code(s): 98412226 Plan: Continue current medication regime ,monitoring and symptomatic treatment. Strict aspiration precautions, MBS pending.Continue on nebulized bronchodilators, antibiotics, steroids. Patient has been transitioned to oral Lasix with oxygen requirements at baseline. Patient/significant other declining home care, and declining ECF. Discharge planning in progress for tomorrow. The impression and plan of care has been dictated as directed. : I performed a history and examination of this patient, discussed the same with the dictator. I agree with the dictator's note ,documented as a scribe. Any additional findings or plans will be noted.
[2018-10-12 12:15] LABS: Glucose,Whole Blood 245 mg/dL (75-99)
--- NOTE | 2018-10-12 13:09 | FL ---
MODIFIED SWALLOW / DEGLUTITION STUDY DATE OF EXAM: 10/12/2018 CLINICAL HISTORY: 68-year-old female with cough, rule out silent aspiration. Fluoroscopy time: 1 minute 46 seconds. Total images: None. Real-time fluoroscopy support was provided to speech pathology. TECHNIQUE: Deglutition study is performed utilizing thin liquid barium, honey and nectar thick liqui d barium, barium thick applesauce, and barium coated cracker. COMPARISON: None. FINDINGS: The oral and pharyngeal phases show satisfactory initiation and propagation with all modalities teste d. Normal mastication is seen with solid modalities tested. There is no evidence of penetration or aspiration with any modality tested. No significant pharyngeal residue was appreciated. IMPRESSION: Functional swallow. Please refer to speech therapist notes for further details if necessary.
[2018-10-12 17:04] LABS: Glucose,Whole Blood 185 mg/dL (75-99)
[2018-10-12] MEDS: ATORVASTATIN 80 MG TAB PO SCH (20:33)
[2018-10-12] MEDS: MIRTAZAPINE 15 MG TAB PO SCH (20:33)
[2018-10-12] MEDS: SODIUM CHLORIDE 0.9% 1,000 ML IV SCH (20:34)
[2018-10-12 20:35] LABS: Glucose,Whole Blood 105 mg/dL (75-99)
[2018-10-12 20:42] VITALS: RESP 18
[2018-10-13 01:55] LABS: Glucose,Whole Blood 102 mg/dL (75-99)
[2018-10-13] MEDS: FUROSEMIDE 10 MG/ML 2 ML VIAL IV SCH (05:11)
[2018-10-13] MEDS: methylPREDNISolone SOD SUCCI 125 MG/2 ML VIAL IV SCH (05:11)
[2018-10-13] MEDS: LEVOTHYROXINE 50 MCG TAB PO SCH (05:12)
[2018-10-13] MEDS: HYDROcodone/APAP 10-325MG 1 EACH TAB PO PRN ×2 (05:57→13:07)
[2018-10-13] MEDS: INSULIN ASPART (NovoLOG) 100 UNIT/ML VIAL SQ SCH ×2 (06:14→12:40)
[2018-10-13 06:42] LABS: Glucose,Whole Blood 53 mg/dL (75-99)
[2018-10-13 06:42] LABS: Glucose,Whole Blood 64 mg/dL (75-99)
[2018-10-13 06:46] LABS: Glucose,Whole Blood 70 mg/dL (75-99)
[2018-10-13] MEDS: FORMOTEROL FUMARATE 20 MCG/2 ML NEBU INHALATION SCH (07:28)
[2018-10-13] MEDS: BUDESONIDE 1 MG/2 ML NEBU INHALATION SCH (07:28)
[2018-10-13] MEDS: IPRATROPIUM-ALBUTEROL 3 ML NEB INHALATION PRN ×2 (07:28→10:55)
[2018-10-13] MEDS: INSULIN DETEMIR (LEVEMIR) 100 UNIT/ML SYR SQ SCH (07:56)
[2018-10-13] MEDS ORDERED: FUROSEMIDE 20 MG TAB PO SCH (09:00)
[2018-10-13 09:13] LABS: Anisocytosis Slight; Basophils % (A) 0 %; Eosinophils % (A) 0 %; HCT 40.9 % (34.0-46.0); HGB 12.8 gm/dL (11.4-16.0); Lymphocytes # (A) 0.8 k/uL (1.0-4.8); Lymphocytes % (A) 5 %; MCH 25.8 pg (25.0-35.0); MCHC 31.2 g/dL (31.0-37.0); MCV 82.8 fL (80.0-100.0); Mean Platelet Volume 8.6; Monocytes # (A) 0.9 k/uL (0-1.0); Monocytes % (A) 6 %; Neutrophils # (A) 13.8 k/uL (1.3-7.7); Neutrophils % (A) 88 %; Platelet Count 324 k/uL (150-450); RBC 4.95 m/uL (3.80-5.40); RDW 16.6 % (11.5-15.5); WBC 15.6 k/uL (3.8-10.6)
[2018-10-13 09:14] LABS: Calcium 9.6 mg/dL (8.4-10.2); Potassium 4.2 mmol/L (3.5-5.1)
[2018-10-13] MEDS: LEVOFLOXACIN 750 MG TAB PO SCH (09:22)
[2018-10-13] MEDS: ENOXAPARIN 40 MG/0.4 ML SYRINGE SQ SCH (09:22)
[2018-10-13] MEDS: ASPIRIN 81 MG PO SCH (09:22)
[2018-10-13] MEDS: POTASSIUM CHLORIDE ER 20 MEQ TAB.ER PO SCH (09:23)
[2018-10-13] MEDS: METOPROLOL TARTRATE 25 MG TAB PO SCH (09:23)
[2018-10-13] MEDS: amLODIPine 5 MG TAB PO SCH (09:23)
[2018-10-13] MEDS: DULoxetine HCL 60 MG CAPSULE.DR PO SCH (09:23)
[2018-10-13] MEDS: GABAPENTIN 300 MG CAP PO SCH (09:23)
[2018-10-13] MEDS: ALLOPURINOL 100 MG TAB PO SCH (09:23)
[2018-10-13] MEDS ORDERED: INSULIN DETEMIR (LEVEMIR) 100 UNIT/ML SYR SQ ONE (09:30)
[2018-10-13] MEDS: PANTOPRAZOLE 40 MG TABLET PO SCH (10:12)
[2018-10-13] MEDS: INSULIN NPH 300 UNIT/3 ML VIAL SQ SCH (10:16)
[2018-10-13 10:35] VITALS: BP 103/55; TEMP 98.6
[2018-10-13 10:58] VITALS: PULSE 84
[2018-10-13 11:43] LABS: Glucose,Whole Blood 146 mg/dL (75-99)
[2018-10-13 14:37] VITALS: BMI 29.4
--- NOTE | 2018-10-13 18:09 | P.DS ---
Providers Date of admission: 10/07/18 13:38 Expected date of discharge: 10/13/18 Attending physician: Adan Lambert MD Consults: 10/06/18 23:30 Consult Physician Routine Consulting Provider: Sandro Wang Consult Reason/Comments: BNP elevated, effusion Do you want consulting provider notified?: Yes Primary care physician: Kavya Atkins [facility] Course: Final Diagnoses: (1) COPD exacerbation Current Visit: Yes Status: Acute Code(s): J44.1 - CHRONIC OBSTRUCTIVE PULMONARY DISEASE W (ACUTE) EXACERBATION SNOMED Code(s): 212827858 (2) Chronic respiratory failure with hypoxia Current Visit: Yes Status: Acute Code(s): J96.11 - CHRONIC RESPIRATORY FAILURE WITH HYPOXIA SNOMED Code(s): 296534453 (3) New onset of congestive heart failure Current Visit: Yes Status: Acute Code(s): I50.9 - HEART FAILURE, UNSPECIFIED SNOMED Code(s): 25220750 (4) possible aspiration with aspiration pneumonia, MBS pending (4) Intractable back pain Current Visit: Yes Status: Acute Code(s): M54.9 - DORSALGIA, UNSPECIFIED SNOMED Code(s): 115876767 (5) Essential hypertension Current Visit: Yes Status: Acute Code(s): I10 - ESSENTIAL (PRIMARY) HYPERTENSION SNOMED Code(s): 20227314 Hospital course:Lesly Al is a 68 yo F with PMH of COPD, T2DM, HTN, CAD, GERD who presented to [facility] ED with severe back pain after a fall at home 2 days ago. She states that she was walking and tripped 2 days ago falling on her bottom. Since then she has had severe LBP worse with twisting and bending. Patient denies numbness tingling or loss sensation of the lower extremities. She has not been able to do much except lay in bed the past 2 days. Pt states her home norco did not help at all and her pain was so severe she called EMS for further evaluation. In the ED she was hypoxic and required 4 L O2 to maintain saturations above 88%. Labs showed WBC 12.5, Cr 1.2, BNP 3000, trop negative. Thoracic, pelvic and hip XR negative, CXR with interstitial prominence. EKG on admission with incomplete RBBB. She denies chest pain or dyspnea with rest. She endorses dyspnea on exertion and orthopnea. Pt states she has had orthopnea and leg swelling for a little less than a year. She has never formally been diagnosed with CHF although an echo last year did show diastolic dysfunction and she takes 20 mg lasix PO daily. 10/08. She continues to complain of severe pain, which was improved with gabapentin and norco. She feels her breathing is improving with treatment but continues to have cough and requiring 4 L O2. Denies chest pain. 10/09. Her back pain is still her chief concern and she feels she needs something stronger. She continues with productive cough, denies chest pain. Her O2 requirement is stable at 4 L. 10/12/2018 Modified barium swallow pending. Afebrile, WBC 10.9. O2 sats in the mid to high 90s on 4 L nasal cannula, at baseline. Denies chest pain, palpitations or increased shortness of breath. Denies lightheadedness or dizziness or focal deficits. Significant clinical improvement. Cleared by cardiology for discharge. Patient is being discharged home in a stable condition with guarded prognosis. - Exam Constitutional: resting in bed, NAD. HENT: on 4 L O2 via NC, mucus membranes moist CV: RRR, murmur Lungs: diminished air entry, rhonchi throughout Ext: pulses 2+ The impression and plan of care has been dictated as directed. : I performed a history and examination of this patient, discussed the same with the dictator. I agree with the dictator's note ,documented as a scribe. Any additional findings or plans will be noted. Time taken: 35 minutes Patient Condition at Discharge: Stable Plan - Discharge Summary New Discharge Prescriptions: New predniSONE 10 mg PO DIRECTED #34 tab Ipratropium-Albuterol Nebulize [Duoneb 0.5 mg-3 mg/3 ml Soln] 3 ml INHALATION QID #120 ampul.neb Continue Levothyroxine Sodium [Synthroid] 50 mcg PO QAM HYDROcodone/APAP 7.5-325MG [Guin 7.5-325] 1 tab PO TID PRN PRN Reason: Pain Aspirin EC [Ecotrin Low Dose] 81 mg PO BID Omeprazole 40 mg PO DAILY Metoprolol Tartrate [Lopressor] 25 mg PO DAILY tab amLODIPine [Norvasc] 5 mg PO DAILY Mirtazapine [Remeron] 30 mg PO HS Allopurinol [Zyloprim] 100 mg PO DAILY DULoxetine HCL [Cymbalta] 60 mg PO BID Gabapentin [Neurontin] 1 - 3 cap PO TID Insulin NPH Human Isophane [NovoLIN N] 97 units SQ BID rOPINIRole HCL [Requip] 3 mg PO DAILY Atorvastatin [Lipitor] 80 mg PO DAILY Potassium Chloride ER [K-Dur 20] 20 meq PO DAILY Changed Furosemide [Lasix] 40 mg PO QAM #35 tab Discontinued Metolazone [Zaroxolyn] 2.5 mg PO MO Discharge Medication List Levothyroxine Sodium [Synthroid] 50 mcg PO QAM 09/13/15 [History] HYDROcodone/APAP 7.5-325MG [Guin 7.5-325] 1 tab PO TID PRN 06/25/16 [History] Aspirin EC [Ecotrin Low Dose] 81 mg PO BID 08/17/17 [History] Omeprazole 40 mg PO DAILY 08/17/17 [History] Metoprolol Tartrate [Lopressor] 25 mg PO DAILY tab 08/20/17 [Rx] Allopurinol [Zyloprim] 100 mg PO DAILY 10/06/18 [History] Atorvastatin [Lipitor] 80 mg PO DAILY 10/06/18 [History] DULoxetine HCL [Cymbalta] 60 mg PO BID 10/06/18 [History] Gabapentin [Neurontin] 1 - 3 cap PO TID 10/06/18 [History] Insulin NPH Human Isophane [NovoLIN N] 97 units SQ BID 10/06/18 [History] Mirtazapine [Remeron] 30 mg PO HS 10/06/18 [History] Potassium Chloride ER [K-Dur 20] 20 meq PO DAILY 10/06/18 [History] amLODIPine [Norvasc] 5 mg PO DAILY 10/06/18 [History] rOPINIRole HCL [Requip] 3 mg PO DAILY 10/06/18 [History] Furosemide [Lasix] 40 mg PO QAM #35 tab 10/13/18 [Rx] Ipratropium-Albuterol Nebulize [Duoneb 0.5 mg-3 mg/3 ml Soln] 3 ml INHALATION QID #120 ampul.neb 10/13/18 [Rx] predniSONE 10 mg PO DIRECTED #34 tab 10/13/18 [Rx] Follow up Appointment(s)/Referral(s): [facility] [NON-STAFF] - As Needed (nebulizer and oxygen ) Kavya Atkins DO [Primary Care Provider] - 10/16/18 1:00 pm (With Rani SHUKLA) Deep Mayo MD [STAFF PHYSICIAN] - 10/27/18 9:45 am Ambulatory/Diagnostic Orders: Complete Blood Count w/diff [LAB.AMB] Time Frame: 3 Days, Location: None Selected Patient Instructions/Handouts: Heart Failure (DC), Heart Healthy Diet (DC), Fall Prevention for Older Adults (DC) Activity/Diet/Wound Care/Special Instructions: Completed antibiotic therapy. Lasix increased to 40 mg daily 1 week then further dosing as per PCP-Dr. Atkins. On 4 L nasal cannula at home Diet: Consistent carb, cardiac Activity: As tolerated Discharge Disposition: HOME SELF-CARE
[2018-10-14] MEDS ORDERED: INSULIN DETEMIR (LEVEMIR) 100 UNIT/ML SYR SQ SCH ×2 (07:00)
[2018-10-15] MEDS ORDERED: LEVOFLOXACIN 750 MG TAB PO SCH (09:00)
== END 2018-10-13 15:22 | disposition home or self-care (01) | DRG 291 ==
LOC: EC 17:51 → 3SCARD 20:58 → OBSVTOIN 10-07 13:38
PROVIDERS: ADMIT Family Medicine; ATTEND Family Medicine
DX: I11.0 Hypertensive heart disease with heart failure (principal); J69.0 Pneumonitis due to inhalation of food and vomit; J96.21 Acute and chronic respiratory failure with hypoxia; J44.1 Chronic obstructive pulmonary disease with (acute) exacerbation; I50.33 Acute on chronic diastolic (congestive) heart failure; E03.9 Hypothyroidism, unspecified; E11.9 Type 2 diabetes mellitus without complications; E78.5 Hyperlipidemia, unspecified; F02.80 Dementia in other diseases classified elsewhere, unspecified severity, without behavioral disturbance, psychotic disturbance, mood disturbance, and anxiety; G30.9 Alzheimer's disease, unspecified; I25.10 Atherosclerotic heart disease of native coronary artery without angina pectoris; I27.20 Pulmonary hypertension, unspecified; I45.10 Unspecified right bundle-branch block; K21.9 Gastro-esophageal reflux disease without esophagitis; W18.30XA Fall on same level, unspecified, initial encounter; Y92.009 Unspecified place in unspecified non-institutional (private) residence as the place of occurrence of the external cause; Z83.3 Family history of diabetes mellitus; Z90.13 Acquired absence of bilateral breasts and nipples; Z96.653 Presence of artificial knee joint, bilateral; Z79.891 Long term (current) use of opiate analgesic; Z79.4 Long term (current) use of insulin; Z79.899 Other long term (current) drug therapy; Z79.890 Hormone replacement therapy; Z79.82 Long term (current) use of aspirin; Z90.49 Acquired absence of other specified parts of digestive tract; T38.0X5A Adverse effect of glucocorticoids and synthetic analogues, initial encounter; D72.829 Elevated white blood cell count, unspecified
CPT/HCPCS: 36415; 71045; 71046; 72072; 72100; 73521; 74230; 80048; 83880; 84145; 84484; 85025; 93005; 93306; 94640; 94760; 96372; 96374; 96375; 99285

== ENCOUNTER 2018-12-11 01:19 | Inpatient (IN) | payer MEDICARE ==
[2018-12-11] MEDS ORDERED: SODIUM CHLORIDE 0.9% 1,000 ML IV STA (01:35)
[2018-12-11 01:48] LABS: Anisocytosis Slight; Basophils # (A) 0.2 k/uL (0-0.2); Basophils % (A) 1 %; Eosinophils # (A) 0.2 k/uL (0-0.7); Eosinophils % (A) 2 %; HCT 43.1 % (34.0-46.0); HGB 14.8 gm/dL (11.4-16.0); Lymphocytes # (A) 1.5 k/uL (1.0-4.8); Lymphocytes % (A) 12 %; MCH 27.4 pg (25.0-35.0); MCHC 34.4 g/dL (31.0-37.0); MCV 79.5 fL (80.0-100.0); Mean Platelet Volume 8.1; Microcytosis Slight; Monocytes # (A) 0.5 k/uL (0-1.0); Monocytes % (A) 4 %; Neutrophils # (A) 10.3 k/uL (1.3-7.7); Neutrophils % (A) 81 %; Platelet Count 318 k/uL (150-450); RBC 5.42 m/uL (3.80-5.40); RDW 17.3 % (11.5-15.5); WBC 12.7 k/uL (3.8-10.6)
--- NOTE | 2018-12-11 01:51 | ED ---
Abdominal Pain HPI - General Source: patient, family, EMS Mode of arrival: EMS Limitations: no limitations <Ondina Haskins - Last Filed: 12/11/18 03:27> <Chika Pratt - Last Filed: 12/11/18 06:49> - General Chief Complaint: Abdominal Pain Stated Complaint: Constipation Time Seen by Provider: 12/11/18 01:24 - History of Present Illness Initial Comments: 68-year-old female patient presents to the emergency department today for evaluation of lower abdominal pain. Patient does have history of dementia and has been is present to aid with history. States that she has not had a bowel movement for the last 2 weeks. States that she has been bedbound and receiving increased doses of opiate medication for the last couple of months after experiencing a fall. Patient states that she had increased abdominal pain starting around 11 PM this evening. She states it is mostly in the right lower abdomen. She denies any dysuria or urinary urgency. Denies any increased back pain. Denies fever or chills. Patient does report some mild shortness of breath denies any significant cough or sputum production. Denies any chest pain. She is nauseated but has not vomited. Patient denies any recent rash, chest pain, back pain, numbness, tingling, dizziness, weakness, hematuria, dysuria, urinary urgency, urinary frequency, headache, visual changes, or any other complaints. (Ondina Haskins) - Related Data Home Medications Medication Instructions Recorded Confirmed Levothyroxine Sodium [Synthroid] 50 mcg PO QAM 09/13/15 10/06/18 HYDROcodone/APAP 7.5-325MG [[place] 1 tab PO TID PRN 06/25/16 10/06/18 7.5-325] Aspirin EC [Ecotrin Low Dose] 81 mg PO BID 08/17/17 10/06/18 Omeprazole 40 mg PO DAILY 08/17/17 10/06/18 Allopurinol [Zyloprim] 100 mg PO DAILY 10/06/18 10/06/18 Atorvastatin [Lipitor] 80 mg PO DAILY 10/06/18 10/06/18 DULoxetine HCL [Cymbalta] 60 mg PO BID 10/06/18 10/06/18 Gabapentin [Neurontin] 1 - 3 cap PO TID 10/06/18 10/06/18 Insulin NPH Human Isophane 97 units SQ BID 10/06/18 10/06/18 [NovoLIN N] Mirtazapine [Remeron] 30 mg PO HS 10/06/18 10/06/18 Potassium Chloride ER [K-Dur 20] 20 meq PO DAILY 10/06/18 10/06/18 amLODIPine [Norvasc] 5 mg PO DAILY 10/06/18 10/06/18 rOPINIRole HCL [Requip] 3 mg PO DAILY 10/06/18 10/06/18 Previous Rx's Medication Instructions Recorded Metoprolol Tartrate [Lopressor] 25 mg PO DAILY tab 08/20/17 Furosemide [Lasix] 40 mg PO QAM #35 tab 10/13/18 Ipratropium-Albuterol Nebulize 3 ml INHALATION QID #120 ampul.neb 10/13/18 [Duoneb 0.5 mg-3 mg/3 ml Soln] predniSONE 10 mg PO DIRECTED #34 tab 10/13/18 Allergies Allergy/AdvReac Type Severity Reaction Status Date / Time No Known Allergies Allergy Verified 12/11/18 01:24 Review of Systems ROS Other: All systems not noted in ROS Statement are negative. <Ondina Haskins M - Last Filed: 12/11/18 03:27> ROS Other: All systems not noted in ROS Statement are negative. <Chika Pratt - Last Filed: 12/11/18 06:49> ROS Statement: Those systems with pertinent positive or pertinent negative responses have been documented in the HPI. Past Medical History Past Medical History: COPD, Dementia, Diabetes Mellitus, Hyperlipidemia, Hypertension Additional Past Medical History / Comment(s): 09/02/15: Fell w/ L1 fracture. Chronic back pain due to several falls. Alzheimer's dementia. History of Any Multi-Drug Resistant Organisms: None Reported Past Surgical History: Back Surgery, Breast Surgery, Cholecystectomy, Joint Replacement Additional Past Surgical History / Comment(s): Bilateral mastectomy - fibrocystic disease. Bilateral kne replacement. Kyphoplasty L1 on 09/20/15. Past Anesthesia/Blood Transfusion Reactions: No Reported Reaction Past Psychological History: Unable to Obtain Smoking Status: Unknown if ever smoked Past Alcohol Use History: None Reported Past Drug Use History: None Reported - Past Family History Mother Family Medical History: Diabetes Mellitus Sister(s) Family Medical History: Diabetes Mellitus <Ondina Haskins - Last Filed: 12/11/18 03:27> General Exam Limitations: no limitations General appearance: alert, in no apparent distress, other (This is a well- developed, well-nourished elderly female patient in no acute distress. Vital signs upon presentation are temperature 98.4F, pulse 1:15, respirations 20, blood pressure 101/68, pulse ox 93% on room air.) Eye exam: Present: normal appearance, PERRL, EOMI. Absent: scleral icterus, conjunctival injection, periorbital swelling ENT exam: Present: normal exam, normal oropharynx. Absent: mucous membranes moist (Dry mucous membranes) Respiratory exam: Present: normal lung sounds bilaterally. Absent: respiratory distress, wheezes, rales, rhonchi, stridor Cardiovascular Exam: Present: regular rate, normal rhythm, normal heart sounds. Absent: systolic murmur, diastolic murmur, rubs, gallop, clicks GI/Abdominal exam: Present: soft, tenderness (Lower abdominal tenderness, midepigastric tenderness), normal bowel sounds. Absent: distended, guarding, rebound, rigid Neurological exam: Present: alert, oriented X3, CN II-XII intact Psychiatric exam: Present: normal affect, normal mood Skin exam: Present: warm, dry, intact, normal color. Absent: rash <Ondina Haskins M - Last Filed: 12/11/18 03:27> Course Vital Signs 12/11/18 12/11/18 12/11/18 01:22 03:30 04:00 Temperature 98.4 F 98.3 F Pulse Rate 115 H 101 H 103 H Respiratory 20 20 18 Rate Blood Pressure 101/68 99/67 97/69 O2 Sat by Pulse 93 L 96 96 Oximetry 12/11/18 04:25 Temperature Pulse Rate 101 H Respiratory 20 Rate Blood Pressure 109/62 O2 Sat by Pulse 98 Oximetry Medical Decision Making - Lab Data Result diagrams: 12/11/18 01:32 12/11/18 01:32 - Radiology Data Radiology results: report reviewed, image reviewed <Ondina Haskins - Last Filed: 12/11/18 03:27> - Lab Data Result diagrams: 12/11/18 01:32 12/11/18 01:32 <Chika Pratt - Last Filed: 12/11/18 06:49> - Medical Decision Making 68-year-old female patient presents to the emergency department today for evaluation of lower abdominal pain. Patient also is reporting intermittent shortness of breath and cough. Labs reviewed and did reveal white blood cell count at 12.7, neutrophils 10.3. Sodium is 132, potassium 2.6, chloride 85. Carbon dioxide is 33 at this time. BUN is 32. Blood sugar elevated at 297. We did initiate potassium replacement. CT abdomen and pelvis was obtained and showed significant constipation with a 6 cm fecal impaction. Did attempt to disimpact the patient, did get some hardened stool out, but patient was unable to tolerate this. We'll attempt enema. CT also showed evidence for right lower lobe pneumonia and compression deformities of T12 and L1 with 50% height loss. Patient has been mostly bed bound since a fall in September. She has reported incr eased back pain and difficulty walking. We'll initiate antibiotics. She'll be admitted to Dr. Lambert. (Ondina Haskins) She care was discussed with Dr. Lambert who agrees with plan for admission (Chika Pratt) - Lab Data Lab Results 12/11/18 12/11/18 12/11/18 Range/Units 01:32 01:32 01:32 WBC 12.7 H (3.8-10.6) k/uL RBC 5.42 H (3.80-5.40) m/uL Hgb 14.8 (11.4-16.0) gm/dL Hct 43.1 (34.0-46.0) % MCV 79.5 L (80.0-100.0) fL MCH 27.4 (25.0-35.0) pg MCHC 34.4 (31.0-37.0) g/dL RDW 17.3 H (11.5-15.5) % Plt Count 318 (150-450) k/uL Neutrophils % 81 % Lymphocytes % 12 % Monocytes % 4 % Eosinophils % 2 % Basophils % 1 % Neutrophils # 10.3 H (1.3-7.7) k/uL Lymphocytes # 1.5 (1.0-4.8) k/uL Monocytes # 0.5 (0-1.0) k/uL Eosinophils # 0.2 (0-0.7) k/uL Basophils # 0.2 (0-0.2) k/uL Anisocytosis Slight Microcytosis Slight Sodium 132 L (137-145) mmol/L Potassium 2.6 L* (3.5-5.1) mmol/L Chloride 85 L (98-107) mmol/L Carbon Dioxide 33 H (22-30) mmol/L Anion Gap 14 mmol/L BUN 32 H (7-17) mg/dL Creatinine 1.03 (0.52-1.04) mg/dL Est GFR (CKD-EPI)AfAm 64 (>60 ml/min/1.73 sqM) Est GFR (CKD-EPI)NonAf 55 (>60 ml/min/1.73 sqM) Glucose 297 H (74-99) mg/dL Plasma Lactic Acid Edmund 1.6 (0.7-2.0) mmol/L Calcium 10.2 (8.4-10.2) mg/dL Total Bilirubin 0.8 (0.2-1.3) mg/dL AST 25 (14-36) U/L ALT 32 (9-52) U/L Alkaline Phosphatase 124 (38-126) U/L Total Protein 6.8 (6.3-8.2) g/dL Albumin 3.7 (3.5-5.0) g/dL Amylase 38 (30-110) U/L Lipase 21 L (23-300) U/L Urine Color Urine Appearance (Clear) Urine pH (5.0-8.0) Ur Specific Garrett (1.001-1.035) Urine Protein (Negative) Urine Glucose (UA) (Negative) Urine Ketones (Negative) Urine Blood (Negative) Urine Nitrite (Negative) Urine Bilirubin (Negative) Urine Urobilinogen (<2.0) mg/dL Ur Leukocyte Esterase (Negative) 12/11/18 Range/Units 02:05 WBC (3.8-10.6) k/uL RBC (3.80-5.40) m/uL Hgb (11.4-16.0) gm/dL Hct (34.0-46.0) % MCV (80.0-100.0) fL MCH (25.0-35.0) pg MCHC (31.0-37.0) g/dL RDW (11.5-15.5) % Plt Count (150-450) k/uL Neutrophils % % Lymphocytes % % Monocytes % % Eosinophils % % Basophils % % Neutrophils # (1.3-7.7) k/uL Lymphocytes # (1.0-4.8) k/uL Monocytes # (0-1.0) k/uL Eosinophils # (0-0.7) k/uL Basophils # (0-0.2) k/uL Anisocytosis Microcytosis Sodium (137-145) mmol/L Potassium (3.5-5.1) mmol/L Chloride (98-107) mmol/L Carbon Dioxide (22-30) mmol/L Anion Gap mmol/L BUN (7-17) mg/dL Creatinine (0.52-1.04) mg/dL Est GFR (CKD-EPI)AfAm (>60 ml/min/1.73 sqM) Est GFR (CKD-EPI)NonAf (>60 ml/min/1.73 sqM) Glucose (74-99) mg/dL Plasma Lactic Acid Edmund (0.7-2.0) mmol/L Calcium (8.4-10.2) mg/dL Total Bilirubin (0.2-1.3) mg/dL AST (14-36) U/L ALT (9-52) U/L Alkaline Phosphatase (38-126) U/L Total Protein (6.3-8.2) g/dL Albumin (3.5-5.0) g/dL Amylase (30-110) U/L Lipase (23-300) U/L Urine Color Yellow Urine Appearance Clear (Clear) Urine pH 5.0 (5.0-8.0) Ur Specific Garrett 1.014 (1.001-1.035) Urine Protein Negative (Negative) Urine Glucose (UA) Negative (Negative) Urine Ketones Negative (Negative) Urine Blood Negative (Negative) Urine Nitrite Negative (Negative) Urine Bilirubin Negative (Negative) Urine Urobilinogen <2.0 (<2.0) mg/dL Ur Leukocyte Esterase Negative (Negative) - Radiology Data CT abdomen and pelvis with contrast was obtained. Report was reviewed in its entirety. Impression by Dr. Tracy shows constipation probably worse in old exam. Atherosclerotic vascular disease. There are new compression fractures in the spine compared to old exam. New right lower lobe patchy pneumonic infiltrate compared to old exam. Two-view x-ray of the chest is obtained. Report was reviewed in its entirety. Impression by Dr. Tracy shows no active cardiopulmonary disease. There is clearing of mild pulmonary edema compared to old exam. (Ondina Haskins) Disposition Decision to Admit Reason: Admit from EC Decision Date: 12/11/18 Decision Time: 03:26 <Ondina Haskins - Last Filed: 12/11/18 03:27> <Chika Pratt - Last Filed: 12/11/18 06:49> Clinical Impression: Right lower lobe pneumonia, Fecal impaction, Hypokalemia, Lumbar compression fracture Disposition: ADMITTED IP TO THIS [facility] Condition: Serious
[2018-12-11 01:53] LABS: Albumin 3.7 g/dL (3.5-5.0); Calcium 10.2 mg/dL (8.4-10.2); Total Bilirubin 0.8 mg/dL (0.2-1.3); Total Protein 6.8 g/dL (6.3-8.2)
[2018-12-11 01:57] LABS: Potassium 2.6 mmol/L (3.5-5.1)
[2018-12-11] MEDS ORDERED: Potassium Replacement Protocol 1 EACH MISC MISCELLANE PRN (02:00)
--- NOTE | 2018-12-11 02:03 | XR ---
EXAMINATION TYPE: XR chest 2V DATE OF EXAM: 12/11/2018 COMPARISON: 10/10/2018 HISTORY: Constipation TECHNIQUE: Frontal and lateral views of the chest are obtained. FINDINGS: There is no heart failure nor confluent pneumonic infiltrate. Costophrenic angles are ozzie r. There are no hilar masses. There is some osteopenia. There is no pleural effusion. Lungs are clear of consolidation. IMPRESSION: No active cardiopulmonary disease. There is clearing of the mild pulmonary edema compare d to old exam.
[2018-12-11] MEDS ORDERED: POTASSIUM CHLORIDE ER 20 MEQ TAB.ER PO STA (02:10)
[2018-12-11 02:15] LABS: Appearance,Urine Clear (Clear); Bilirubin,Urine Negative (Negative); Blood,Urine Negative (Negative); Color,Urine Yellow; Glucose,Urine (UA) Negative (Negative); Ketones,Urine Negative (Negative); Leukocyte Esterase,Urine Negative (Negative); Nitrite,Urine Negative (Negative); Protein,Urine Negative (Negative); Specific Gravity,Urine 1.014 (1.001-1.035); Urobilinogen,Urine <2.0 mg/dL (<2.0)
[2018-12-11] MEDS: POTASSIUM CHLORIDE 10 MEQ in WATER FOR INJECTION 1 100ML.BAG IVPB SCH ×4 (02:20→11:53)
--- NOTE | 2018-12-11 02:53 | CT ---
EXAMINATION TYPE: CT abdomen pelvis w con DATE OF EXAM: 12/11/2018 COMPARISON: 06/22/2010 HISTORY: constipation CT DLP: 962.5 mGycm Automated exposure control for dose reduction was used. TECHNIQUE: Helical acquisition of images was performed from the lung bases through the pelvis. CONTRAST: Performed without Oral Contrast and with IV Contrast, patient injected with 80 mL of Isovue 300. FINDINGS: There is some patchy reticular infiltrate and atelectasis right posterior lung base that is new vanessa red to old exam. Heart size is fairly normal. There is no pericardial effusion. There is no pleural e ffusion. There are clips from cholecystectomy. Bile ducts are not dilated. Spleen appears normal. Stomach appe ars normal. There is no evidence of pancreatic mass. There is some pancreatic atrophy. There is no adrenal mass. Kidneys show satisfactory contrast opacification. There is no hydronephrosi s. There is 3 cm cortical cyst anterior right kidney. There is no retroperitoneal adenopathy. Bladder distends smoothly. There is no inguinal hernia. There is some retained fecal material in the distal large bowel. There is rectal fecal impaction that measures 6.5 cm. There is no mesenteric edema. There is no ascites or free air. There is no sign of a bowel obstructio n. There is no evidence of thickened appendix. There are compression fractures of L1 and T12 with up to 50% loss of height. There is vertebroplasty of L1. There is osteopenia. Bony pelvis appears intact . Abdominal aorta is atheromatous. IMPRESSION: THERE IS CONSTIPATION PROBABLY WORSE THAN OLD EXAM. ATHEROSCLEROTIC VASCULAR DISEASE. THERE ARE NEW COMPRESSION FRACTURES IN THE SPINE COMPARED TO OLD EX AM. NEW RIGHT LOWER LOBE PATCHY PNEUMONIC INFILTRATE COMPARED TO OLD EXAM.
[2018-12-11] MEDS ORDERED: POTASSIUM CHLORIDE 10 MEQ in WATER FOR INJECTION 1 100ML.BAG IVPB SCH (03:00)
[2018-12-11] MEDS ORDERED: PNEUMONIA PROTOCOL UTILIZED 1 EACH MISC PO PRN (03:14)
[2018-12-11] MEDS ORDERED: LEVOFLOXACIN 750MG-D5W PMX 750 MG in DEXTROSE/WATER 1 150ML.BAG IVPB STA (03:14)
[2018-12-11] MEDS ORDERED: AZITHROMYCIN 500 MG in SODIUM CHLORIDE 0.9% 250 ML IVPB STA (03:22)
[2018-12-11] MEDS: SODIUM CHLORIDE 0.9% 1,000 ML IV SCH (04:25)
[2018-12-11 04:57] VITALS: BMI 29.0
[2018-12-11 07:06] LABS: Glucose,Whole Blood 143 mg/dL (75-99)
[2018-12-11 07:09] LABS: Calcium 9.2 mg/dL (8.4-10.2); Potassium 2.9 mmol/L (3.5-5.1); Total Bilirubin 0.6 mg/dL (0.2-1.3); Total Protein 5.6 g/dL (6.3-8.2)
[2018-12-11] MEDS: INSULIN ASPART (NovoLOG) 100 UNIT/ML VIAL SQ SCH ×4 (07:25→21:46)
[2018-12-11] MEDS ORDERED: PIPERACILLIN-TAZOBACTAM 3.375 GM in SODIUM CHLORIDE 0.9% 100 ML IVPB SCH (08:00)
[2018-12-11] MEDS ORDERED: POTASSIUM CHLORIDE 40 MEQ in WATER FOR INJECTION 1 100ML.BAG IVPB STA (09:02)
[2018-12-11] MEDS: ALLOPURINOL 100 MG TAB PO SCH (09:58)
[2018-12-11] MEDS: ASPIRIN 81 MG PO SCH ×2 (09:59→21:43)
[2018-12-11] MEDS: amLODIPine 5 MG TAB PO SCH (09:59)
[2018-12-11] MEDS: FUROSEMIDE 40 MG TAB PO SCH (09:59)
[2018-12-11] MEDS: DULoxetine HCL 60 MG CAPSULE.DR PO SCH ×2 (09:59→21:43)
[2018-12-11] MEDS: ENOXAPARIN 40 MG/0.4 ML SYRINGE SQ SCH (09:59)
[2018-12-11] MEDS: METOPROLOL TARTRATE 25 MG TAB PO SCH (10:00)
[2018-12-11] MEDS: LEVOTHYROXINE 50 MCG TAB PO SCH (10:00)
[2018-12-11] MEDS: POTASSIUM CHLORIDE ER 20 MEQ TAB.ER PO SCH (10:00)
[2018-12-11] MEDS: PANTOPRAZOLE 40 MG TABLET PO SCH (10:02)
[2018-12-11] MEDS: HYDROcodone/APAP 7.5-325MG 1 EACH TAB PO PRN (10:50)
[2018-12-11 11:55] LABS: Glucose,Whole Blood 141 mg/dL (75-99)
[2018-12-11] MEDS: POTASSIUM CHLORIDE ER 10 MEQ TAB.ER.PRT PO SCH ×3 (12:11→16:33)
--- NOTE | 2018-12-11 12:45 | P.CNPUL ---
History of Present Illness Consult date: 12/11/18 Reason for consult: pneumonia History of present illness: A 68-year-old female patient came into the hospital because of some increased cough and congestion and shortness of breath. She is a poor historian. She has underlying dementia. She has been bedbound. She has been having skeletal pain due to a fall and she has been receiving opiates on outpatient basis. She did develop some constipation. No nausea. No vomiting. No emesis. No aspiration. No chest pain pleurisy. No history of tics urgency. In the ED, the patient had a white cell count 12.7. Initial potassium level is at 2.6 and this was replaced. BUN and creatinine were within normal limits. Glucose was 297. LFTs were within normal limits. The UA was negative. The chest x-ray was done that showed no acute cardio pulmonary process and a CAT scan of the abdomen and pelvis showed constipation worse compared to the old exam. There is also a new compression fracture of the spine and the right lower lobe pulmonary patchy infiltrate that was not present on previous evaluations. The patient was started on antibiotics and the pulmonary Physician was requested. She is currently on a combination of DuoNeb nebulized times [id number]. She is also on examination Rocephin and Zithromax. Outpatient medications have been ordered resume. Review of Systems Constitutional: Reports fatigue, Reports weakness Eyes: denies as per HPI, denies blurred vision, denies bulging eye, denies decreased vision, denies diplopia, denies discharge, denies dry eye, denies irritation, denies itching, denies pain, denies photophobia, denies loss of peripheral vision, denies loss of vision, denies tunnel vision/blind spots Ears: deny: decreased hearing, ear discharge, earache, tinnitus Breasts: absent: as per HPI, change in shape, gynecomastia, masses, nipple discharge, pain, skin changes, swelling Cardiovascular: Reports dyspnea on exertion, Reports shortness of breath, Denies chest pain Respiratory: Reports cough, Reports dyspnea Genitourinary: Reports as per HPI Musculoskeletal: Reports low back pain Musculoskeletal: absent: ankle pain, ankle stiffness, ankle swelling Integumentary: Denies pruritus, Denies rash Neurological: Reports gait dysfunction, Reports lack of coordination, Reports memory loss, Reports weakness Psychiatric: Reports as per HPI Endocrine: Reports as per HPI Hematologic/Lymphatic: Reports as per HPI Allergic/Immunologic: Reports as per HPI Past Medical History Past Medical History: COPD, Dementia, Diabetes Mellitus, Hyperlipidemia, Hypertension Additional Past Medical History / Comment(s): 09/02/15: Fell w/ L1 fracture. Chronic back pain due to several falls. Alzheimer's dementia. History of Any Multi-Drug Resistant Organisms: None Reported Past Surgical History: Back Surgery, Breast Surgery, Cholecystectomy, Joint Replacement Additional Past Surgical History / Comment(s): Bilateral mastectomy - fi brocystic disease. Bilateral kne replacement. Kyphoplasty L1 on 09/20/15. Past Anesthesia/Blood Transfusion Reactions: No Reported Reaction Past Psychological History: Unable to Obtain Additional Psychological History / Comment(s): ALZIEMER'S DIAGNOSED, 6-7 YRS. AGO. (CAN GET AGITATED AND HAS BEEN HOSPITALIZED.) Smoking Status: Unknown if ever smoked Past Alcohol Use History: None Reported Past Drug Use History: None Reported - Past Family History Mother Family Medical History: Diabetes Mellitus Sister(s) Family Medical History: Diabetes Mellitus Medications and Allergies Home Medications Medication Instructions Recorded Confirmed Type Levothyroxine Sodium [Synthroid] 50 mcg PO QAM 09/13/15 12/11/18 History HYDROcodone/APAP 7.5-325MG [[place] 1 tab PO BID PRN 06/25/16 12/11/18 History 7.5-325] Aspirin EC [Ecotrin Low Dose] 81 mg PO BID 08/17/17 12/11/18 History Omeprazole 40 mg PO DAILY 08/17/17 12/11/18 History Metoprolol Tartrate [Lopressor] 25 mg PO DAILY tab 08/20/17 12/11/18 Rx Allopurinol [Zyloprim] 100 mg PO DAILY 10/06/18 12/11/18 History Atorvastatin [Lipitor] 80 mg PO DAILY 10/06/18 12/11/18 History DULoxetine HCL [Cymbalta] 60 mg PO BID 10/06/18 12/11/18 History Insulin NPH Human Isophane 97 units SQ BID 10/06/18 12/11/18 History [NovoLIN N] Mirtazapine [Remeron] 30 mg PO HS 10/06/18 12/11/18 History Potassium Chloride ER [K-Dur 20] 20 meq PO DAILY 10/06/18 12/11/18 History amLODIPine [Norvasc] 5 mg PO DAILY 10/06/18 12/11/18 History rOPINIRole HCL [Requip] 3 mg PO DAILY 10/06/18 12/11/18 History Furosemide [Lasix] 40 mg PO QAM #35 tab 10/13/18 12/11/18 Rx Ipratropium-Albuterol Nebulize 3 ml INHALATION RT-Q4H PRN 12/11/18 12/11/18 History [Duoneb 0.5 mg-3 mg/3 ml Soln] oxyCODONE HCL/ACETAMINOPHEN 1 tab PO BID PRN 12/11/18 12/11/18 History [Percocet 5-325 mg] Allergies Allergy/AdvReac Type Severity Reaction Status Date / Time No Known Allergies Allergy Verified 12/11/18 08:30 Physical Exam Vitals: Vital Signs Temp Pulse Pulse Resp BP BP Pulse Ox 12/11/18 07:00 98.5 F 92 18 102/63 94 L 12/11/18 04:50 98.0 F 96 17 109/68 96 12/11/18 04:25 101 H 20 109/62 98 12/11/18 04:00 103 H 18 97/69 96 12/11/18 03:30 98.3 F 101 H 20 99/67 96 12/11/18 01:22 98.4 F 115 H 20 101/68 93 L Intake and Output 12/10/18 12/11/18 12/11/18 22:59 06:59 14:59 Intake Total 100 Balance 100 Intake: Intake, IV Titration 100 Amount Sodium Chloride 0.9% 1, 100 000 ml @ 50 mls/hr IV . Q20H [facility] Rx#:[id number] Other: Voiding Method Diaper Weight 72.121 kg General appearance: alert, in no apparent distress, other Head exam was generally normal. There was no scleral icterus or corneal arcus. Mucous membranes were moist. Eye exam: Present: normal appearance, PERRL, EOMI. Absent: scleral icterus, conjunctival injection, periorbital swelling ENT exam: Present: normal exam, normal oropharynx. Absent: mucous membranes [address] (Dry mucous membranes) Respiratory exam: Present: Diminished lung sounds bilaterally. Absent: respiratory distress, wheezes, rales, rhonchi, stridor. The breath sounds are quite diminished and accurate examination cannot be done. There is some limited crackles in lung bases. Her cough is noncongested. Cardiovascular Exam: Present: regular rate, normal rhythm, normal heart sounds. Absent: systolic murmur, diastolic murmur, rubs, gallop, clicks GI/Abdominal exam: Present: soft, tenderness (Lower abdominal tenderness, midepigastric tenderness), normal bowel sounds. Absent: distended, guarding, rebound, rigid Neurological exam: Present: alert, oriented X3, CN II-XII intact, but history the patient has underlying dementia. The patient also has some resting tremors. Psychiatric exam: Present: normal affect, normal mood Skin exam: Present: warm, dry, intact, normal color. Absent: rash Results - Laboratory Findings CBC and BMP: 12/11/18 01:32 12/11/18 06:38 Abnormal lab findings: Abnormal Labs 12/11/18 12/11/18 12/11/18 01:32 01:32 06:38 WBC 12.7 H RBC 5.42 H MCV 79.5 L RDW 17.3 H Neutrophils # 10.3 H Sodium 132 L 134 L Potassium 2.6 L* 2.9 L Chloride 85 L 93 L Carbon Dioxide 33 H 35 H BUN 32 H 27 H Glucose 297 H 154 H POC Glucose (mg/dL) Total Protein 5.6 L Albumin 3.0 L Lipase 21 L 12/11/18 12/11/18 06:59 11:54 WBC RBC MCV RDW Neutrophils # Sodium Potassium Chloride Carbon Dioxide BUN Glucose POC Glucose (mg/dL) 143 H 141 H Total Protein Albumin Lipase - Diagnostic Findings Chest x-ray: image reviewed Assessment and Plan Plan: 1 acute right lower lobe pneumonia 2 COPD 3 chronic dementia 4 diabetes mellitus type 2 5 hyperlipidemia 6 hypertension 7 chronic back pain and history of recurrent frequent falls and previous history of L1 fracture 8 bilateral mastectomy Plan Continue Rocephin and Zithromax. Bronchodilators. Resume outpatient medications. Gentle hydration. We'll continue to follow. Condition stable. Hemodynamically stable. Currently on room air oxygen.
[2018-12-11 14:32] LABS: Calcium 9.3 mg/dL (8.4-10.2); Potassium 3.1 mmol/L (3.5-5.1)
[2018-12-11 16:59] LABS: Glucose,Whole Blood 263 mg/dL (75-99)
[2018-12-11] MEDS: MIRTAZAPINE 15 MG TAB PO SCH (21:42)
[2018-12-11] MEDS: ATORVASTATIN 80 MG TAB PO SCH (21:46)
--- NOTE | 2018-12-11 22:31 | P.HPIM ---
History of Present Illness H&P Date: 12/11/18 Chief Complaint: weakness, cough Lesly Al is a 68 yo F with PMH COPD, diastolc CHF, T2DM, dementia, compression fracture, HTN, CAD who presented to [facility] with increasing weakness, cough and malaise. She was recently admitted after a fall approx 2 months ago and at that time was found to have a compression fracture. Pt states that since that time she has been largely bedbound and using prescription opiates to control her pain. She states that her has recently been unable to keep up with taking care of her and she ran out of opiates so had been in more pain. Pt also notes constipation and abdominal fullness/early satiety. Last BM 3-4 days ago. She reports that yesterday she developed a cough which prompted her family to bring her in. In the ED she was tachycardic and hypoxic which resolved with O2 and IVF. WBC 12.7, K 2.6, Cr 1. CXR showed RLL i nfiltrate. Review of Systems All systems: negative Constitutional: Reports fatigue, Reports malaise, Reports night sweats, Reports poor appetite, Reports weakness Eyes: denies blurred vision, denies pain Ears, nose, mouth and throat: Denies headache, Denies sore throat Cardiovascular: Reports dyspnea on exertion Respiratory: Reports cough, Reports cough with sputum, Reports dyspnea Gastrointestinal: Reports constipation, Reports loss of appetite, Denies nausea, Denies vomiting Genitourinary: Denies dysuria, Denies hematuria Musculoskeletal: Denies myalgias Integumentary: Denies pruritus, Denies rash Neurological: Denies numbness, Denies weakness Psychiatric: Denies anxiety, Denies depression Endocrine: Denies fatigue, Denies weight change Past Medical History Past Medical History: COPD, Dementia, Diabetes Mellitus, Hyperlipidemia, Hypertension Additional Past Medical History / Comment(s): 09/02/15: Fell w/ L1 fracture. Chronic back pain due to several falls. Alzheimer's dementia. History of Any Multi-Drug Resistant Organisms: None Reported Past Surgical History: Back Surgery, Breast Surgery, Cholecystectomy, Joint Replacement Additional Past Surgical History / Comment(s): Bilateral mastectomy - fibrocy stic disease. Bilateral kne replacement. Kyphoplasty L1 on 09/20/15. Past Anesthesia/Blood Transfusion Reactions: No Reported Reaction Past Psychological History: Unable to Obtain Additional Psychological History / Comment(s): ALZIEMER'S DIAGNOSED, 6-7 YRS. AGO. (CAN GET AGITATED AND HAS BEEN HOSPITALIZED.) Smoking Status: Unknown if ever smoked Past Alcohol Use History: None Reported Past Drug Use History: None Reported - Past Family History Mother Family Medical History: Diabetes Mellitus Sister(s) Family Medical History: Diabetes Mellitus Medications and Allergies Home Medications Medication Instructions Recorded Confirmed Type Levothyroxine Sodium [Synthroid] 50 mcg PO QAM 09/13/15 12/11/18 History HYDROcodone/APAP 7.5-325MG [[place] 1 tab PO BID PRN 06/25/16 12/11/18 History 7.5-325] Aspirin EC [Ecotrin Low Dose] 81 mg PO BID 08/17/17 12/11/18 History Omeprazole 40 mg PO DAILY 08/17/17 12/11/18 History Metoprolol Tartrate [Lopressor] 25 mg PO DAILY tab 08/20/17 12/11/18 Rx Allopurinol [Zyloprim] 100 mg PO DAILY 10/06/18 12/11/18 History Atorvastatin [Lipitor] 80 mg PO DAILY 10/06/18 12/11/18 History DULoxetine HCL [Cymbalta] 60 mg PO BID 10/06/18 12/11/18 History Insulin NPH Human Isophane 97 units SQ BID 10/06/18 12/11/18 History [NovoLIN N] Mirtazapine [Remeron] 30 mg PO HS 10/06/18 12/11/18 History Potassium Chloride ER [K-Dur 20] 20 meq PO DAILY 10/06/18 12/11/18 History amLODIPine [Norvasc] 5 mg PO DAILY 10/06/18 12/11/18 History rOPINIRole HCL [Requip] 3 mg PO DAILY 10/06/18 12/11/18 History Furosemide [Lasix] 40 mg PO QAM #35 tab 10/13/18 12/11/18 Rx Ipratropium-Albuterol Nebulize 3 ml INHALATION RT-Q4H PRN 12/11/18 12/11/18 History [Duoneb 0.5 mg-3 mg/3 ml Soln] oxyCODONE HCL/ACETAMINOPHEN 1 tab PO BID PRN 09/27/19 09/27/19 History [Percocet 5-325 mg] Allergies Allergy/AdvReac Type Severity Reaction Status Date / Time No Known Allergies Allergy Verified 12/11/18 08:30 Physical Exam Vitals: Vital Signs Temp Pulse Pulse Resp BP BP Pulse Ox 12/11/18 20:08 66 18 96/60 12/11/18 19:42 98.0 F 75 18 81/51 97 12/11/18 15:00 98.2 F 65 14 77/45 92 L 12/11/18 07:00 98.5 F 92 18 102/63 94 L 12/11/18 04:50 98.0 F 96 17 109/68 96 12/11/18 04:25 101 H 20 109/62 98 12/11/18 04:00 103 H 18 97/69 96 12/11/18 03:30 98.3 F 101 H 20 99/67 96 12/11/18 01:22 98.4 F 115 H 20 101/68 93 L Intake and Output 12/11/18 12/11/18 12/11/18 06:59 14:59 22:59 Intake Total 100 Balance 100 Intake: Intake, IV Titration 100 Amount Sodium Chloride 0.9% 1, 100 000 ml @ 50 mls/hr IV . Q20H [facility] Rx#:[id number] Other: Voiding Method Diaper # Voids 1 Weight 72.121 kg General: well nourished, well developed, NAD. Vitals reviewed Eyes: PERRL, EOMI, conjunctiva normal HENT: normocephalic, mucus membranes moist Neck: supple, no JVD Lungs: normal respiratory effort. poor air entry. crackles at bases CV: Regular rate and rhythm, no murmur. Peripheral pulses 2+. No edema Abdomen: soft, nondistended, no organomegaly. Generalized tenderness Lymph: no cervical or axillary LAD Skin: warm and dry. Neuro: A&Ox3, normal mood and affect Results CBC & Chem 7: 12/11/18 01:32 12/11/18 14:07 Labs: Abnormal Lab Results - Last 24 Hours (Table) 12/11/18 12/11/18 12/11/18 Range/Units 01:32 01:32 06:38 WBC 12.7 H (3.8-10.6) k/uL RBC 5.42 H (3.80-5.40) m/uL MCV 79.5 L (80.0-100.0) fL RDW 17.3 H (11.5-15.5) % Neutrophils # 10.3 H (1.3-7.7) k/uL Sodium 132 L 134 L (137-145) mmol/L Potassium 2.6 L* 2.9 L (3.5-5.1) mmol/L Chloride 85 L 93 L (98-107) mmol/L Carbon Dioxide 33 H 35 H (22-30) mmol/L BUN 32 H 27 H (7-17) mg/dL Glucose 297 H 154 H (74-99) mg/dL POC Glucose (mg/dL) (75-99) mg/dL Total Protein 5.6 L (6.3-8.2) g/dL Albumin 3.0 L (3.5-5.0) g/dL Lipase 21 L (23-300) U/L 12/11/18 12/11/18 12/11/18 Range/Units 06:59 11:54 14:07 WBC (3.8-10.6) k/uL RBC (3.80-5.40) m/uL MCV (80.0-100.0) fL RDW (11.5-15.5) % Neutrophils # (1.3-7.7) k/uL Sodium 136 L (137-145) mmol/L Potassium 3.1 L (3.5-5.1) mmol/L Chloride 96 L (98-107) mmol/L Carbon Dioxide 31 H (22-30) mmol/L BUN 24 H (7-17) mg/dL Glucose (74-99) mg/dL POC Glucose (mg/dL) 143 H 141 H (75-99) mg/dL Total Protein (6.3-8.2) g/dL Albumin (3.5-5.0) g/dL Lipase (23-300) U/L 12/11/18 Range/Units 16:57 WBC (3.8-10.6) k/uL RBC (3.80-5.40) m/uL MCV (80.0-100.0) fL RDW (11.5-15.5) % Neutrophils # (1.3-7.7) k/uL Sodium (137-145) mmol/L Potassium (3.5-5.1) mmol/L Chloride (98-107) mmol/L Carbon Dioxide (22-30) mmol/L BUN (7-17) mg/dL Glucose (74-99) mg/dL POC Glucose (mg/dL) 263 H (75-99) mg/dL Total Protein (6.3-8.2) g/dL Albumin (3.5-5.0) g/dL Lipase (23-300) U/L Thrombosis Risk Factor Assmnt - Choose All That Apply Any of the Below Risk Factors Present?: No Other Risk Factors: Yes Each Risk Factor Represents 3 Points: Age 75 years or older Thrombosis Risk Factor Assessment Total Risk Factor Score: 3 Thrombosis Risk Factor Assessment Level: Moderate Risk Assessment and Plan (1) Sepsis due to pneumonia Current Visit: Yes Status: Acute Code(s): J18.9 - PNEUMONIA, UNSPECIFIED ORGANISM; A41.9 - SEPSIS, UNSPECIFIED ORGANISM SNOMED Code(s): 93172235 (2) Hypokalemia Current Visit: Yes Status: Acute Code(s): E87.6 - HYPOKALEMIA SNOMED Code(s): 82159741 (3) Lumbar compression fracture Current Visit: Yes Status: Acute Code(s): S32.000A - WEDGE COMPRESSION FRACTURE OF UNSP LUMBAR VERTEBRA, INIT SNOMED Code(s): 042746109 (4) Right lower lobe pneumonia Current Visit: Yes Status: Acute Code(s): J18.1 - LOBAR PNEUMONIA, UNSPECIFIED ORGANISM SNOMED Code(s): 518890751 (5) Type 2 diabetes mellitus Current Visit: Yes Status: Acute Code(s): E11.9 - TYPE 2 DIABETES MELLITUS WITHOUT COMPLICATIONS SNOMED Code(s): 66631456 (6) Community acquired bacterial pneumonia Current Visit: Yes Status: Acute Code(s): J15.9 - UNSPECIFIED BACTERIAL PNEUMONIA SNOMED Code(s): 218902962 (7) Chronic diastolic CHF (congestive heart failure) Current Visit: Yes Status: Acute Code(s): I50.32 - CHRONIC DIASTOLIC (CONGESTIVE) HEART FAILURE SNOMED Code(s): 844727241 (8) Coronary artery disease Current Visit: Yes Status: Acute Code(s): I25.10 - ATHSCL HEART DISEASE OF [place] CORONARY ARTERY W/O ANG PCTRS SNOMED Code(s): 85548868 Plan: 1. Sepsis due to pneumonia. SIRS 3/4 on admission. Blood cultures and sputum culture. Pulmonology consulted. Cover with rocephin and azithromycin 2. Community acquired pneumonia. 3. COPD exacerbation. Cont duonebs 4. Constipation. Start miralax and pericolace 5. Compression fracture. Continue home norco 6. Hypokalemia. Replete 7. Chronic diastolic CHF. Continue lasix 8. T2DM. Levemir 26 U daily and sliding scale DVT prophylaxis lovenox GI prophylaxis protonix
[2018-12-12] MEDS ORDERED: LEVOFLOXACIN 750MG-D5W PMX 750 MG in DEXTROSE/WATER 1 150ML.BAG IVPB SCH (03:15)
[2018-12-12] MEDS: AZITHROMYCIN 500 MG in SODIUM CHLORIDE 0.9% 250 ML IVPB SCH (06:16)
[2018-12-12] MEDS: SODIUM CHLORIDE 0.9% 1,000 ML IV SCH (06:16)
[2018-12-12] MEDS: LEVOTHYROXINE 50 MCG TAB PO SCH (06:16)
[2018-12-12 06:54] LABS: Anisocytosis Slight; Basophils % (A) 0 %; Eosinophils # (A) 0.3 k/uL (0-0.7); Eosinophils % (A) 4 %; HCT 35.3 % (34.0-46.0); HGB 11.9 gm/dL (11.4-16.0); Lymphocytes # (A) 2.3 k/uL (1.0-4.8); Lymphocytes % (A) 29 %; MCH 27.7 pg (25.0-35.0); MCHC 33.7 g/dL (31.0-37.0); MCV 82.3 fL (80.0-100.0); Monocytes # (A) 0.4 k/uL (0-1.0); Monocytes % (A) 5 %; Neutrophils # (A) 4.8 k/uL (1.3-7.7); Neutrophils % (A) 61 %; Platelet Count 246 k/uL (150-450); RBC 4.29 m/uL (3.80-5.40); RDW 17.6 % (11.5-15.5); WBC 7.8 k/uL (3.8-10.6)
[2018-12-12 07:05] LABS: Glucose,Whole Blood 103 mg/dL (75-99)
[2018-12-12 07:12] LABS: African American GFR (CKD) >90 (>60 ml/min/1.73 sqM); Anion Gap 7 mmol/L; Blood Urea Nitrogen 18 mg/dL (7-17); Calcium 9.2 mg/dL (8.4-10.2); Carbon Dioxide 31 mmol/L (22-30); Chloride 97 mmol/L (98-107); Glucose 101 mg/dL (74-99); Sodium 135 mmol/L (137-145)
[2018-12-12 07:46] LABS: Potassium 2.7 mmol/L (3.5-5.1)
[2018-12-12] MEDS ORDERED: Potassium Replacement Protocol 1 EACH MISC MISCELLANE PRN (07:47)
[2018-12-12] MEDS: METOPROLOL TARTRATE 25 MG TAB PO SCH (09:04)
[2018-12-12] MEDS: POTASSIUM CHLORIDE ER 20 MEQ TAB.ER PO SCH ×4 (09:04→14:17)
[2018-12-12] MEDS: POLYETHYLENE GLYCOL 3350 17 GM POWD.PACK PO SCH (09:04)
[2018-12-12] MEDS: SENNOSIDES-DOCUSATE SODIUM 1 EACH TAB PO SCH ×2 (09:04→20:57)
[2018-12-12] MEDS: FUROSEMIDE 40 MG TAB PO SCH (09:04)
[2018-12-12] MEDS: DULoxetine HCL 60 MG CAPSULE.DR PO SCH ×2 (09:04→20:57)
[2018-12-12] MEDS: ALLOPURINOL 100 MG TAB PO SCH (09:04)
[2018-12-12] MEDS: PANTOPRAZOLE 40 MG TABLET PO SCH (09:04)
[2018-12-12] MEDS: amLODIPine 5 MG TAB PO SCH (09:04)
[2018-12-12] MEDS: INSULIN ASPART (NovoLOG) 100 UNIT/ML VIAL SQ SCH ×4 (09:05→22:00)
[2018-12-12] MEDS: INSULIN DETEMIR (LEVEMIR) 100 UNIT/ML SYR SQ SCH (09:05)
[2018-12-12] MEDS: ENOXAPARIN 40 MG/0.4 ML SYRINGE SQ SCH (09:05)
[2018-12-12] MEDS: HYDROcodone/APAP 7.5-325MG 1 EACH TAB PO PRN ×2 (09:32→21:02)
--- NOTE | 2018-12-12 11:13 | P.PN ---
Subjective Is being treated for right upper lobe pneumonia, she is on Rocephin and azithromycin for that. Patient is still constipated will try and use lactulose. Patient had a physical therapy and occupation therapy evaluation the recommending home care. If patient is able to move her bowels today patient can be discharged today. Patient is bit hypokalemic because of 50 IV fluids and Lasix. Passing will be supplemented. Patient is also believed to have heart failure because of the chest x-ray findings although clinically patient doesn't have any JVD adopted a BMP and BNP is not elevated of this can you Lasix, IV fluids will be discussed. Patient has natriuretic hypokalemia and hypokalemia secondary to Lasix. Constitutional: Denied any fatigue denied any fever. Cardio vascular: denied any chest pain, palpitations Gastrointestinal denied any nausea vomiting Pulmonary: Denied any shortness of breath cough Neurologic denied any new focal deficits All inpatient medications were reviewed and appropriate changes in these medications as dictated in the interval history and assessment and plan. Objective - Vital Signs Vital signs: Vital Signs Temp 98.2 F 12/12/18 07:00 Pulse 67 12/12/18 07:00 Resp 18 12/12/18 07:00 BP 100/58 12/12/18 07:00 Pulse Ox 98 12/12/18 07:00 Intake & Output 12/11/18 12/12/18 12/12/18 18:59 06:59 18:59 Output Total 500 Balance -500 Output: Urine 500 Other: # Voids 1 1 - Exam PHYSICAL EXAMINATION: GENERAL: The patient is alert and oriented x3, not in any acute distress. Well developed, well nourished. HEENT: Pupils are round and equally reacting to light. EOMI. No scleral icterus. No conjunctival pallor. Normocephalic, atraumatic. No pharyngeal erythema. No thyromegaly. CARDIOVASCULAR: S1 and S2 present. No murmurs, rubs, or gallops. PULMONARY: Chest is clear to auscultation, no wheezing or crackles. ABDOMEN: Soft, nontender, sluggish bowel sounds MUSCULOSKELETAL: No joint swelling or deformity. EXTREMITIES: No cyanosis, clubbing, or pedal edema. NEUROLOGICAL: Gross neurological examination did not reveal any focal deficits. SKIN: No rashes. - Labs CBC & Chem 7: 12/12/18 06:12 12/12/18 06:12 Labs: Abnormal Lab Results - Last 24 Hours (Table) 12/11/18 12/11/18 12/11/18 Range/Units 11:54 14:07 16:57 RDW (11.5-15.5) % Sodium 136 L (137-145) mmol/L Potassium 3.1 L (3.5-5.1) mmol/L Chloride 96 L (98-107) mmol/L Carbon Dioxide 31 H (22-30) mmol/L BUN 24 H (7-17) mg/dL Glucose (74-99) mg/dL POC Glucose (mg/dL) 141 H 263 H (75-99) mg/dL 12/12/18 12/12/18 12/12/18 Range/Units 06:12 06:12 07:01 RDW 17.6 H (11.5-15.5) % Sodium 135 L (137-145) mmol/L Potassium 2.7 L* (3.5-5.1) mmol/L Chloride 97 L (98-107) mmol/L Carbon Dioxide 31 H (22-30) mmol/L BUN 18 H (7-17) mg/dL Glucose 101 H (74-99) mg/dL POC Glucose (mg/dL) 103 H (75-99) mg/dL Microbiology - Last 24 Hours (Table) 12/11/18 03:48 Blood Culture - Preliminary Blood No Growth after 24 hours Assessment and Plan Plan: -Right lower lobe pneumonia: Cranial Rocephin and azithromycin, IV fluids will be discontinued as patient is also receiving Lasix at this time. -Possibility of congestive heart failure clinically does not appear to be in heart failure exacerbation depending and BNP of decide on Lasix. -COPD with the exacerbation patient is wheezing at this time patient will be st arted on inhaled steroids if patient doesn't get better will need cystoscopy extra strength avoid cystic steroids because of her diabetes mellitus. -Hyperlipidemia next and-hypertension next and-chronic low back pain with compression fraction the past -Coronary artery disease -hypokalemia: Never due to above-mentioned reasons will replace potassium
--- NOTE | 2018-12-12 11:49 | XR ---
EXAMINATION TYPE: XR chest 2V DATE OF EXAM: 12/12/2018 HISTORY: pneumonia. REFERENCE: Previous study dated 12/11/2018. FINDINGS: There continues be airspace disease in the right lower lobe. The left lung is clear. The he art is minimally prominent. Pleural spaces are clear. IMPRESSION: SLIGHT WORSENING OF THE PATIENT'S RIGHT LOWER LOBE PNEUMONIA.
[2018-12-12] MEDS: ASPIRIN 81 MG PO SCH ×2 (11:58→21:02)
[2018-12-12] MEDS: LACTULOSE 20 GM/30 ML CUP PO PRN ×2 (11:58→19:52)
[2018-12-12] MEDS: IPRATROPIUM-ALBUTEROL 3 ML NEB INHALATION PRN ×3 (12:18→20:06)
[2018-12-12 12:22] LABS: Glucose,Whole Blood 118 mg/dL (75-99)
--- NOTE | 2018-12-12 12:35 | P.PN ---
Subjective Progress Note Date: 12/12/18 Principal diagnosis: Acute right lower lobe pneumonia. A 68-year-old female patient came into the hospital because of some increased cough and congestion and shortness of breath. She is a poor historian. She has underlying dementia. She has been bedbound. She has been having skeletal pain due to a fall and she has been receiving opiates on outpatient basis. She did develop some constipation. No nausea. No vomiting. No emesis. No aspiration. No chest pain pleurisy. No history of tics urgency. In the ED, the patient had a white cell count 12.7. Initial potassium level is at 2.6 and this was replaced. BUN and creatinine were within normal limits. Glucose was 297. LFTs were within normal limits. The UA was negative. The chest x-ray was done that showed no acute cardio pulmonary process and a CAT scan of the abdomen and pelvis showed constipation worse compared to the old exam. There is also a new compression fracture of the spine and the right lower lobe pulmonary patchy infiltrate that was not present on previous evaluations. The patient was star carmelina on antibiotics and the pulmonary Physician was requested. She is currently on a combination of DuoNeb nebulized times [id number]. She is also on examination Rocephin and Zithromax. Outpatient medications have been ordered resume. The patient is seen today 12/12/2018 in follow-up on the regular medical floor. She remains awake and alert in no acute distress. She is afebrile. Hemody namically stable. 98% on room air. Chest x-ray shows stable right lower lobe pneumonia. Blood culture reveals no growth. White count 7.8. Hemoglobin 11.9. Potassium 2.7. Creatinine 0.72. ProBNP 289. She remains on bronchodilators, ceftriaxone and azithromycin. Objective - Vital Signs Vital signs: Vital Signs Temp 98.2 F 12/12/18 07:00 Pulse 76 12/12/18 12:18 Resp 18 12/12/18 07:00 BP 100/58 12/12/18 07:00 Pulse Ox 98 12/12/18 07:00 Intake & Output 12/11/18 12/12/18 12/12/18 18:59 06:59 18:59 Intake Total 300 Output Total 500 Balance -500 300 Intake: Intake, IV Titration 300 Amount Azithromycin 500 mg In 250 Sodium Chloride 0.9% 250 ml @ 250 mls/hr IVPB Q24H [facility] Rx#:[id number] cefTRIAXone 1 gm In 50 Sodium Chloride 0.9% 50 ml @ 100 mls/hr IVPB Q24HR [facility] Rx#:[id number] Output: Urine 500 Other: # Voids 1 1 - Exam General appearance: alert, pleasant 68-year-old female patient, in no apparent distress, Head exam was generally normal. There was no scleral icterus or corneal arcus. Mucous membranes were moist. Eye exam: Present: normal appearance, PERRL, EOMI. Absent: scleral icterus, conjunctival injection, periorbital swelling ENT exam: Present: normal exam, normal oropharynx. Absent: mucous membranes moist (Dry mucous membranes) Respiratory exam: Present: Diminished lung sounds bilaterally. Absent: respiratory distress, wheezes, rales, rhonchi, stridor. The breath sounds are quite diminished and accurate examination cannot be done. There is some limited crackles in lung bases. Her cough is noncongested. Cardiovascular Exam: Present: regular rate, normal rhythm, normal heart sounds. Absent: systolic murmur, diastolic murmur, rubs, gallop, clicks GI/Abdominal exam: Present: soft, tenderness (Lower abdominal tenderness, midepigastric tenderness), normal bowel sounds. Absent: distended, guarding, rebound, rigid Neurological exam: Present: alert, oriented, CN II-XII intact, but history the patient has underlying dementia. The patient also has some resting tremors. Psychiatric exam: Present: normal affect, normal mood Skin exam: Present: warm, dry, intact, normal color. Absent: rash - Labs CBC & Chem 7: 12/12/18 06:12 12/12/18 06:12 Labs: Abnormal Lab Results - Last 24 Hours (Table) 12/11/18 12/11/18 12/12/18 Range/Units 14:07 16:57 06:12 RDW 17.6 H (11.5-15.5) % Sodium 136 L (137-145) mmol/L Potassium 3.1 L (3.5-5.1) mmol/L Chloride 96 L (98-107) mmol/L Carbon Dioxide 31 H (22-30) mmol/L BUN 24 H (7-17) mg/dL Glucose (74-99) mg/dL POC Glucose (mg/dL) 263 H (75-99) mg/dL 12/12/18 12/12/18 12/12/18 Range/Units 06:12 07:01 12:19 RDW (11.5-15.5) % Sodium 135 L (137-145) mmol/L Potassium 2.7 L* (3.5-5.1) mmol/L Chloride 97 L (98-107) mmol/L Carbon Dioxide 31 H (22-30) mmol/L BUN 18 H (7-17) mg/dL Glucose 101 H (74-99) mg/dL POC Glucose (mg/dL) 103 H 118 H (75-99) mg/dL Microbiology - Last 24 Hours (Table) 12/11/18 03:48 Blood Culture - Preliminary Blood No Growth after 24 hours Assessment and Plan Assessment: Impression: 1 acute right lower lobe pneumonia 2 COPD 3 chronic dementia 4 diabetes mellitus type 2 5 hyperlipidemia 6 hypertension 7 chronic back pain and history of recurrent frequent falls and previous history of L1 fracture 8 bilateral mastectomy Plan: The patient was seen and evaluated by Dr. Adams. Chest x-ray and labs reviewed. We'll continue with her current antibiotics. Continue bronchodilators. Increase her activity as tolerated. We'll continue to follow. I, the cosigning physician, performed a history & physical examination of the patient. Lungs sounds very diminished, crackles in the bases. Maintaining good O2 saturations in the 90s on room air. I discussed the assessment and plan of care with my nurse practitioner, Amy Harris. I attest to the above note as dictated by her.
[2018-12-12 18:11] LABS: Glucose,Whole Blood 122 mg/dL (75-99)
[2018-12-12] MEDS: SYMBICORT 160-4.5 MCG INHALER INHALATION SCH (20:07)
[2018-12-12] MEDS: MIRTAZAPINE 15 MG TAB PO SCH (20:57)
[2018-12-12] MEDS: ATORVASTATIN 80 MG TAB PO SCH (20:57)
[2018-12-12 21:56] LABS: Glucose,Whole Blood 153 mg/dL (75-99)
[2018-12-13] MEDS: LEVOTHYROXINE 50 MCG TAB PO SCH (05:53)
[2018-12-13] MEDS: AZITHROMYCIN 500 MG in SODIUM CHLORIDE 0.9% 250 ML IVPB SCH (05:53)
[2018-12-13 06:57] LABS: Anisocytosis Slight; Basophils # (A) 0.1 k/uL (0-0.2); Basophils % (A) 1 %; Eosinophils # (A) 0.3 k/uL (0-0.7); Eosinophils % (A) 5 %; HCT 38.7 % (34.0-46.0); HGB 12.7 gm/dL (11.4-16.0); Lymphocytes # (A) 2.1 k/uL (1.0-4.8); Lymphocytes % (A) 32 %; MCH 27.7 pg (25.0-35.0); MCHC 32.9 g/dL (31.0-37.0); MCV 84.3 fL (80.0-100.0); Mean Platelet Volume 8.8; Monocytes # (A) 0.4 k/uL (0-1.0); Monocytes % (A) 5 %; Neutrophils # (A) 3.7 k/uL (1.3-7.7); Neutrophils % (A) 55 %; Platelet Count 204 k/uL (150-450); RBC 4.59 m/uL (3.80-5.40); WBC 6.7 k/uL (3.8-10.6)
[2018-12-13 07:08] LABS: Glucose,Whole Blood 78 mg/dL (75-99)
[2018-12-13 07:16] LABS: Calcium 9.4 mg/dL (8.4-10.2); Potassium 3.2 mmol/L (3.5-5.1)
[2018-12-13] MEDS: IPRATROPIUM-ALBUTEROL 3 ML NEB INHALATION PRN (07:43)
[2018-12-13] MEDS: SYMBICORT 160-4.5 MCG INHALER INHALATION SCH (07:43)
[2018-12-13] MEDS: INSULIN ASPART (NovoLOG) 100 UNIT/ML VIAL SQ SCH ×2 (08:09→11:57)
[2018-12-13] MEDS: ASPIRIN 81 MG PO SCH (08:16)
[2018-12-13] MEDS: DULoxetine HCL 60 MG CAPSULE.DR PO SCH (08:16)
[2018-12-13] MEDS: HYDROcodone/APAP 7.5-325MG 1 EACH TAB PO PRN (08:16)
[2018-12-13] MEDS: ALLOPURINOL 100 MG TAB PO SCH (08:17)
[2018-12-13] MEDS: SENNOSIDES-DOCUSATE SODIUM 1 EACH TAB PO SCH (08:17)
[2018-12-13] MEDS: ENOXAPARIN 40 MG/0.4 ML SYRINGE SQ SCH (08:17)
[2018-12-13] MEDS: INSULIN DETEMIR (LEVEMIR) 100 UNIT/ML SYR SQ SCH (08:17)
[2018-12-13] MEDS: METOPROLOL TARTRATE 25 MG TAB PO SCH (08:17)
[2018-12-13] MEDS: PANTOPRAZOLE 40 MG TABLET PO SCH (08:17)
[2018-12-13] MEDS: POLYETHYLENE GLYCOL 3350 17 GM POWD.PACK PO SCH (08:17)
[2018-12-13] MEDS: POTASSIUM CHLORIDE ER 20 MEQ TAB.ER PO SCH (08:17)
[2018-12-13 08:19] VITALS: BP 109/67; PULSE 69; RESP 15; TEMP 98
--- NOTE | 2018-12-13 10:13 | P.PN ---
Subjective Progress Note Date: 12/13/18 A 68-year-old female patient came into the hospital because of some increased cough and congestion and shortness of breath. She is a poor historian. She has underlying dementia. She has been bedbound. She has been having skeletal pain due to a fall and she has been receiving opiates on outpatient basis. She did develop some constipation. No nausea. No vomiting. No emesis. No aspiration. No chest pain pleurisy. No history of tics urgency. In the ED, the patient had a white cell count 12.7. Initial potassium level is at 2.6 and this was replaced. BUN and creatinine were within normal limits. Glucose was 297. LFTs were within normal limits. The UA was negative. The chest x-ray was done that showed no acute cardio pulmonary process and a CAT scan of the abdomen and pelvis showed constipation worse compared to the old exam. There is also a new compression fracture of the spine and the right lower lobe pulmonary patchy infiltrate that was not present on previous evaluations. The patient was started on antibiotics and the pulmonary Physician was requested. She is currently on a combination of DuoNeb nebulized times [id number]. She is also on examination Rocephin and Zithromax. Outpatient medications have been ordered resume. The patient is seen today 12/12/2018 in follow-up on the regular medical floor. She remains awake and alert in no acute distress. She is afebrile. Hemodynamically stable. 98% on room air. Chest x-ray shows stable right lower lobe pneumonia. Blood culture reveals no growth. White count 7.8. Hemoglobin 11.9. Potassium 2.7. Creatinine 0.72. ProBNP 289. She remains on bronchodilators, ceftriaxone and azithromycin. On 12/13/2018, the patient doing well without any specific complaints. No fever or chills. She on examination Rocephin and Zithromax for a pneumonia in no leukocytosis. White cell count is at 6.7. Patient is on bronchodilators. The patient is also tolerating her diet well without any major difficulties or aspiration. Objective - Vital Signs Vital signs: Vital Signs Temp 98.0 F 12/13/18 07:00 Pulse 80 12/13/18 07:55 Resp 15 12/13/18 07:00 BP 109/67 12/13/18 07:00 Pulse Ox 94 L 12/13/18 07:44 Intake & Output 12/12/18 12/13/18 12/13/18 18:59 06:59 18:59 Intake Total 300 Balance 300 Intake: Intake, IV Titration 300 Amount Azithromycin 500 mg In 250 Sodium Chloride 0.9% 250 ml @ 250 mls/hr IVPB Q24H [facility] Rx#:[id number] cefTRIAXone 1 gm In 50 Sodium Chloride 0.9% 50 ml @ 100 mls/hr IVPB Q24HR [facility] Rx#:[id number] Other: Voiding Method Diaper # Voids 1 1 # Bowel Movements 1 1 - Exam General appearance: alert, pleasant 68-year-old female patient, in no apparent distress, Head exam was generally normal. There was no scleral icterus or corneal arcus. Mucous membranes were moist. Eye exam: Present: normal appearance, PERRL, EOMI. Absent: scleral icterus, conjunctival injection, periorbital swelling ENT exam: Present: normal exam, normal oropharynx. Absent: mucous membranes moist (Dry mucous membranes) Respiratory exam: Present: Diminished lung sounds bilaterally. Absent: respiratory distress, wheezes, rales, rhonchi, stridor. The breath sounds are q uite diminished and accurate examination cannot be done. There is some limited crackles in lung bases. Her cough is noncongested. Cardiovascular Exam: Present: regular rate, normal rhythm, normal heart sounds. Absent: systolic murmur, diastolic murmur, rubs, gallop, clicks GI/Abdominal exam: Present: soft, tenderness (Lower abdominal tenderness, midepigastric tenderness), normal bowel sounds. Absent: distended, guarding, rebound, rigid Neurological exam: Present: alert, oriented, CN II-XII intact, but history the patient has underlying dementia. The patient also has some resting tremors. Psychiatric exam: Present: normal affect, normal mood Skin exam: Present: warm, dry, intact, normal color. Absent: rash - Labs CBC & Chem 7: 12/13/18 06:05 12/13/18 06:05 Labs: Abnormal Lab Results - Last 24 Hours (Table) 12/12/18 12/12/18 12/12/18 Range/Units 12:19 18:00 18:05 RDW (11.5-15.5) % Potassium 3.3 L (3.5-5.1) mmol/L Carbon Dioxide (22-30) mmol/L POC Glucose (mg/dL) 118 H 122 H (75-99) mg/dL 12/12/18 12/13/18 12/13/18 Range/Units 21:45 06:05 06:05 RDW 18.0 H (11.5-15.5) % Potassium 3.2 L (3.5-5.1) mmol/L Carbon Dioxide 31 H (22-30) mmol/L POC Glucose (mg/dL) 153 H (75-99) mg/dL Microbiology - Last 24 Hours (Table) 12/11/18 03:48 Blood Culture - Preliminary Blood No Growth after 48 hours Assessment and Plan Plan: 1 acute right lower lobe pneumonia, stable 2 COPD 3 chronic dementia 4 diabetes mellitus type 2 5 hyperlipidemia 6 hypertension 7 chronic back pain and history of recurrent frequent falls and previous history of L1 fracture 8 bilateral mastectomy Plan The neck is stable. Aspiration precautions. Possible discharge home today on oral antibiotics regarding the right lower lobe pneumonia. Suggest Augmentin.
--- NOTE | 2018-12-13 11:08 | P.DS ---
Providers Date of admission: 12/11/18 03:32 Attending physician: Adan Lambert MD Consults: 12/11/18 03:33 Consult Physician Stat Consulting Provider: Petra Jacques Consult Reason/Comments: Pneumonia; COPD Do you want consulting provider notified?: Yes Primary care physician: Kavya [facility] Course: Is being treated for right upper lobe pneumonia, she is on Rocephin and azithromycin for that. Patient is still constipated will try and use lactulose. Patient had a physical therapy and occupation therapy evaluation the recommending home care. If patient is able to move her bowels today patient can be discharged today. Patient is bit hypokalemic because of 50 IV fluids and Lasix. Passing will be supplemented. Patient is also believed to have heart failure because of the chest x-ray findings although clinically patient doesn't have any JVD adopted a BMP and BNP is not elevated of this can you Lasix, IV fluids will be discussed. Patient has natriuretic hypokalemia and hypokalemia secondary to Lasix. 10/12/2018 Patient is doing much better today BNP is only 200 patient doesn't have any clinical evidence of CHF with ejection fraction is within normal lives because of which I'll continue the diuretic therapy as well as potassium supplementation patient's patient's serum sodium improved with IV fluids and is continuous of diuretic therapy. Patient will be discharged today. Patient's is requesting more [place] refills patient appears to be in oxycodone and note: I do not believe she'll require any additional medications. Patient will be discharged on 7 days of Ceftin for pneumonia. Her wheezing resolved patient will be given prescription for Symbicort patient does have crackles in the left lower lung bases. PHYSICAL EXAMINATION: GENERAL: The patient is alert and oriented x3, not in any acute distress. Well developed, well nourished. HEENT: Pupils are round and equally reacting to light. EOMI. No scleral icterus. No conjunctival pallor. Normocephalic, atraumatic. No pharyngeal erythema. No thyromegaly. CARDIOVASCULAR: S1 and S2 present. No murmurs, rubs, or gallops. PULMONARY: Wheezing resolved apparently had bilateral lung resendiz crackles in left lower as well as right lower lung ABDOMEN: Soft, nontender, nondistended, normoactive bowel sounds. No palpable organomegaly. MUSCULOSKELETAL: No joint swelling or deformity. EXTREMITIES: No cyanosis, clubbing, or pedal edema. NEUROLOGICAL: Gross neurological examination did not reveal any focal deficits. SKIN: No rashes. Assessment and Plan Plan: -Right lower lobe pneumonia: Community-acquired -Ruled out CHF -COPD with the exacerbation improved with inhaled steroids will not require any systemic steroids -Hyperlipidemia -hypertension -chronic low back pain with compression fraction the past -Coronary artery disease -hypokalemia: Replaced potassium Patient Condition at Discharge: Serious Plan - Discharge Summary Discharge Rx Participant: Yes New Discharge Prescriptions: New Budesonide-Formot 160-4.5 Mcg [Symbicort 160-4.5 Mcg Inhaler] 2 puff INHALATION RT-BID #1 inhalation Cefuroxime Axetil [Ceftin] 500 mg PO BID 7 Days #14 tab Continue Levothyroxine Sodium [Synthroid] 50 mcg PO QAM HYDROcodone/APAP 7.5-325MG [[place] 7.5-325] 1 tab PO BID PRN PRN Reason: Pain Aspirin EC [Ecotrin Low Dose] 81 mg PO BID Omeprazole 40 mg PO DAILY Metoprolol Tartrate [Lopressor] 25 mg PO DAILY tab Mirtazapine [Remeron] 30 mg PO HS Allopurinol [Zyloprim] 100 mg PO DAILY DULoxetine HCL [Cymbalta] 60 mg PO BID Insulin NPH Human Isophane [NovoLIN N] 97 units SQ BID rOPINIRole HCL [Requip] 3 mg PO DAILY Atorvastatin [Lipitor] 80 mg PO DAILY oxyCODONE HCL/ACETAMINOPHEN [Percocet 5-325 mg] 1 tab PO BID PRN PRN Reason: Pain Ipratropium-Albuterol Nebulize [Duoneb 0.5 mg-3 mg/3 ml Soln] 3 ml INHALATION RT-Q4H PRN PRN Reason: Shortness Of Breath Discontinued amLODIPine [Norvasc] 5 mg PO DAILY Potassium Chloride ER [K-Dur 20] 20 meq PO DAILY Furosemide [Lasix] 40 mg PO QAM #35 tab Discharge Medication List Levothyroxine Sodium [Synthroid] 50 mcg PO QAM 09/13/15 [History] HYDROcodone/APAP 7.5-325MG [[place] 7.5-325] 1 tab PO BID PRN 06/25/16 [History] Aspirin EC [Ecotrin Low Dose] 81 mg PO BID 08/17/17 [History] Omeprazole 40 mg PO DAILY 08/17/17 [History] Metoprolol Tartrate [Lopressor] 25 mg PO DAILY tab 08/20/17 [Rx] Allopurinol [Zyloprim] 100 mg PO DAILY 10/06/18 [History] Atorvastatin [Lipitor] 80 mg PO DAILY 10/06/18 [History] DULoxetine HCL [Cymbalta] 60 mg PO BID 10/06/18 [History] Insulin NPH Human Isophane [NovoLIN N] 97 units SQ BID 10/06/18 [History] Mirtazapine [Remeron] 30 mg PO HS 10/06/18 [History] rOPINIRole HCL [Requip] 3 mg PO DAILY 10/06/18 [History] Ipratropium-Albuterol Nebulize [Duoneb 0.5 mg-3 mg/3 ml Soln] 3 ml INHALATION RT-Q4H PRN 12/11/18 [History] oxyCODONE HCL/ACETAMINOPHEN [Percocet 5-325 mg] 1 tab PO BID PRN 12/11/18 [History] Budesonide-Formot 160-4.5 Mcg [Symbicort 160-4.5 Mcg Inhaler] 2 puff INHALATION RT-BID #1 inhalation 12/13/18 [Rx] Cefuroxime Axetil [Ceftin] 500 mg PO BID 7 Days #14 tab 12/13/18 [Rx] Follow up Appointment(s)/Referral(s): [facility] [NON-STAFF] - As Needed Kavya Atkins DO [Primary Care Provider] - 1-2 days Activity/Diet/Wound Care/Special Instructions: Patient requesting a refill on a [place] script from Dr. Lambert. Discharge Disposition: HOME SELF-CARE
[2018-12-13 11:27] LABS: Glucose,Whole Blood 92 mg/dL (75-99)
--- NOTE | 2018-12-15 13:53 | CDI ---
Documentation Clarification Form Date: 12/15/2018 1:51:00 PM From: An Ramachandran Phone: If you have a question regarding this query, please contact Kadi Ly at [phone] between 8am and 5pm. Admit Date: 12/11/2018 3:32:00 AM Patient Name: Lesly Al Visit Number: [id number] Discharge Date: 12/13/2018 3:10:00 PM ATTENTION: The Clinical Documentation Specialists (CDI) and [facility] Coding Staff appreciate your assistance in clarifying documentation. Please respond to the clarification below the line at the bottom and electronically sign. The CDI & [facility] Coding staff will review the response and follow-up if needed. Please note: Queries are made part of the Legal Health Record. If you have any questions, please contact the author of this message via ITS. Dr. Kathy Lopes The patient presented with abdominal pain with fecal impaction and found to have pneumonia. Sepsis is documented in the H&P. SIRS criteria 3/4 is also documented in the H&P. History/Risk Factors: Pneumonia Clinical Indicators: Elevated WBC, increased heart rate WBC: 12.7 Lactic acid: 1.6 Blood cultures: Negative Vitals signs on admission: T. 98.4, P. 115, R. 20, BP 101/68 Treatment: Antibiotics: IV Zithromax, IV Rocephin, IV Levaquin IV Bolus: 1 liter In your professional opinion, please clarify if these findings signify one of the following conditions, whether the condition is POA, and cause, if known: Condition Sepsis ruled out SIRS, without underlying infectious process Sepsis Other, please specify Unable to determine Appropriate documentation was already dictated in my note MTDD
== END 2018-12-13 15:10 | disposition home health service (06) | DRG 194 ==
LOC: EC 01:19 → 4SSUR 03:32
PROVIDERS: ADMIT Family Medicine; ATTEND Family Medicine
DX: J18.9 Pneumonia, unspecified organism (principal); I50.32 Chronic diastolic (congestive) heart failure; J44.0 Chronic obstructive pulmonary disease with (acute) lower respiratory infection; J44.1 Chronic obstructive pulmonary disease with (acute) exacerbation; M48.56XA Collapsed vertebra, not elsewhere classified, lumbar region, initial encounter for fracture; E11.65 Type 2 diabetes mellitus with hyperglycemia; I11.0 Hypertensive heart disease with heart failure; F02.80 Dementia in other diseases classified elsewhere, unspecified severity, without behavioral disturbance, psychotic disturbance, mood disturbance, and anxiety; G30.9 Alzheimer's disease, unspecified; E78.5 Hyperlipidemia, unspecified; E87.6 Hypokalemia; R29.6 Repeated falls; G89.29 Other chronic pain; I25.10 Atherosclerotic heart disease of native coronary artery without angina pectoris; K56.41 Fecal impaction; T50.1X5A Adverse effect of loop [high-ceiling] diuretics, initial encounter; Z74.01 Bed confinement status; Z79.4 Long term (current) use of insulin; Z79.890 Hormone replacement therapy; Z79.899 Other long term (current) drug therapy; Z79.82 Long term (current) use of aspirin; Z79.52 Long term (current) use of systemic steroids; Z91.81 History of falling; Z90.13 Acquired absence of bilateral breasts and nipples; Z90.49 Acquired absence of other specified parts of digestive tract; Z96.653 Presence of artificial knee joint, bilateral; Z83.3 Family history of diabetes mellitus
CPT/HCPCS: 36415; 71046; 74177; 80048; 80053; 81003; 82150; 83605; 83690; 83880; 84132; 85025; 87040; 93005; 94640; 94760; 96361; 96365; 96366; 99285

== ENCOUNTER 2019-09-05 19:47 | Emergency (ER) | payer MEDICARE ==
[2019-09-05 19:55] VITALS: TEMP 98
[2019-09-05 20:16] LABS: Glucose,Whole Blood 41 mg/dL (75-99)
[2019-09-05] MEDS ORDERED: DEXTROSE 50% SYRINGE 50 ML IVP STA (20:16)
--- NOTE | 2019-09-05 20:22 | ED ---
General Adult HPI - General Chief complaint: Altered Mental Status Stated complaint: altered mental status Source: family, EMS, RN notes reviewed, old records reviewed Mode of arrival: EMS Limitations: no limitations - History of Present Illness Initial comments: Clinical course: 69-year-old female patient presents for evaluation of altered mental status. Patient has a history of dementia at baseline. As reports that patient has not been eating very much today. He states that he did give her insulin at 11am but she has not eaten since then. Patient is a known diabetic as well. Course of the last are not patient has not been acting herself and has had decreased responsiveness, pleasant reports that it got worse 1.5 hours prior to presentation to ED. History is provided by . As patient symptoms were somewhat abrupt in nature a code stroke was called. Blood sugar was performed and was found to be in the 40s. Patient was given an amp of dextrose and all symptoms resolved. Patient is alert and oriented at her baseline. Denies any acute complaints. Denies any cough congestion fever or nausea vomiting, chest pain, shortness of breath. Constitutional: NAD, AOX3, Pt has pleasant affect. HEENT: NC/AT, trachea midline. External ears appear normal, without discharge. Mucous membranes moist. Eyes PERRLA, EOM intact. There is no scleral icterus. No pallor noted. Cardiopulmonary: RRR, no murmurs, rubs or gallops, no JVD noted. Lungs CTAB in anterior and posterior resendiz. No peripheral edema. Abdominal exam: Abdomen soft and non-distended. Abdomen non-tender to palpation in all 4 quadrants. Bowel sounds active in LLQ. No hepatosplenomegaly. No ecchymosis Neuro: CN II-XII intact. No nuchal rigidity. No raccon eyes, no lipscomb sign, no hemotympanum. No cervical spinal tenderness. NIH 0. MSK: No posterior calf tenderness bilaterally, homans sign negative bilaterally. Posterior tibialis and radial pulse +2 bilaterally. Sensation intact in upper and lower extremities. Full active ROM in upper and lower extremities, 5/5 stregnth. Laboratory investigations were performed and are significant for a leukocytosis, hyperglycemia, mild hypokalemia. Potassium was supplemented emergency department. Blood sugar continued to be monitored and remained stable in the 100s. Patient continues to be asymptomatic. CT brain without contrast did not display any acute process. Patient was discharged with 3 days of oral potassium supplementation, will have close outpatient follow-up with primary care provider tomorrow will monitor blood sugar at home and return here if condition worsens. Case discussed and pt seen by Dr. Mayo. - Related Data Home Medications Medication Instructions Recorded Confirmed Levothyroxine Sodium [Synthroid] 50 mcg PO QAM 09/13/15 12/11/18 HYDROcodone/APAP 7.5-325MG [[place] 1 tab PO BID PRN 06/25/16 12/11/18 7.5-325] Aspirin EC [Ecotrin Low Dose] 81 mg PO BID 08/17/17 12/11/18 Omeprazole 40 mg PO DAILY 08/17/17 12/11/18 Allopurinol [Zyloprim] 100 mg PO DAILY 10/06/18 12/11/18 Atorvastatin [Lipitor] 80 mg PO DAILY 10/06/18 12/11/18 DULoxetine HCL [Cymbalta] 60 mg PO BID 10/06/18 12/11/18 Insulin NPH Human Isophane 97 units SQ BID 10/06/18 12/11/18 [NovoLIN N] Mirtazapine [Remeron] 30 mg PO HS 10/06/18 12/11/18 rOPINIRole HCL [Requip] 3 mg PO DAILY 10/06/18 12/11/18 Ipratropium-Albuterol Nebulize 3 ml INHALATION RT-Q4H PRN 12/11/18 12/11/18 [Duoneb 0.5 mg-3 mg/3 ml Soln] oxyCODONE HCL/ACETAMINOPHEN 1 tab PO BID PRN 12/11/18 12/11/18 [Percocet 5-325 mg] Previous Rx's Medication Instructions Recorded Metoprolol Tartrate [Lopressor] 25 mg PO DAILY tab 08/20/17 Budesonide-Formot 160-4.5 Mcg 2 puff INHALATION RT-BID #1 12/13/18 [Symbicort 160-4.5 Mcg Inhaler] inhalation Cefuroxime Axetil [Ceftin] 500 mg PO BID 7 Days #14 tab 12/13/18 Potassium Chloride ER [K-Dur 20] 20 meq PO DAILY 3 Days #3 tab 09/05/19 Allergies Allergy/AdvReac Type Severity Reaction Status Date / Time No Known Allergies Allergy Verified 09/05/19 19:55 Review of Systems ROS Statement: Those systems with pertinent positive or pertinent negative responses have been documented in the HPI. ROS Other: All systems not noted in ROS Statement are negative. Past Medical History Past Medical History: COPD, Dementia, Diabetes Mellitus, Hyperlipidemia, Hypertension Additional Past Medical History / Comment(s): 09/02/15: Fell w/ L1 fracture. Chronic back pain due to several falls. Alzheimer's dementia. History of Any Multi-Drug Resistant Organisms: None Reported Past Surgical History: Back Surgery, Breast Surgery, Cholecystectomy, Joint Replacement Additional Past Surgical History / Comment(s): Bilateral mastectomy - fibrocystic disease. Bilateral kne replacement. Kyphoplasty L1 on 09/20/15. Past Anesthesia/Blood Transfusion Reactions: No Reported Reaction Past Psychological History: Unable to Obtain Smoking Status: Unknown if ever smoked Past Alcohol Use History: None Reported Past Drug Use History: None Reported - Past Family History Mother Family Medical History: Diabetes Mellitus Sister(s) Family Medical History: Diabetes Mellitus General Exam Limitations: no limitations Course Vital Signs 09/05/19 09/05/19 09/05/19 19:49 20:36 21:24 Temperature 98 F Pulse Rate 80 80 71 Respiratory 17 18 17 Rate Blood Pressure 178/91 132/89 143/74 O2 Sat by Pulse 94 L 98 100 Oximetry Medical Decision Making - Medical Decision Making Clinical course: 69-year-old female patient presents for evaluation of altered mental status. Patient has a history of dementia at baseline. As reports that patient has not been eating very much today. He states that he did give her insulin at 11am but she has not eaten since then. Patient is a known diabetic as well. Course of the last are not patient has not been acting herself and has had decreased r esponsiveness, pleasant reports that it got worse 1.5 hours prior to presentation to ED. History is provided by . As patient symptoms were somewhat abrupt in nature a code stroke was called. Blood sugar was performed and was found to be in the 40s. Patient was given an amp of dextrose and all symptoms resolved. Patient is alert and oriented at her baseline. Denies any acute complaints. Denies any cough congestion fever or nausea vomiting, chest pain, shortness of breath. Constitutional: NAD, AOX3, Pt has pleasant affect. HEENT: NC/AT, trachea midline. External ears appear normal, without discharge. Mucous membranes moist. Eyes PERRLA, EOM intact. There is no scleral icterus. No pallor noted. Cardiopulmonary: RRR, no murmurs, rubs or gallops, no JVD noted. Lungs CTAB in anterior and posterior resendiz. No peripheral edema. Abdominal exam: Abdomen soft and non-distended. Abdomen non-tender to palpation in all 4 quadrants. Bowel sounds active in LLQ. No hepatosplenomegaly. No ecchymosis Neuro: CN II-XII intact. No nuchal rigidity. No raccon eyes, no lipscomb sign, no hemotympanum. No cervical spinal tenderness. NIH 0. MSK: No posterior calf tenderness bilaterally, homans sign negative bilaterally. Posterior tibialis and radial pulse +2 bilaterally. Sensation intact in upper and lower extremities. Full active ROM in upper and lower extremities, 5/5 stregnth. Laboratory investigations were performed and are significant for a leukocytosis, hyperglycemia, mild hypokalemia. Potassium was supplemented emergency department. Blood sugar continued to be monitored and remained stable in the 100s. Patient continues to be asymptomatic. CT brain without contrast did not display any acute process. Patient was discharged with 3 days of oral potassium supplementation, will have close outpatient follow-up with primary care provider tomorrow will monitor blood sugar at home and return here if condition worsens. Case discussed and pt seen by Dr. Mayo. - Lab Data Result diagrams: 09/05/19 20:12 09/05/19 20:12 Lab Results 09/05/19 09/05/19 09/05/19 Range/Units 20:09 20:12 20:12 WBC 15.3 H (3.8-10.6) k/uL RBC 4.43 (3.80-5.40) m/uL Hgb 12.3 (11.4-16.0) gm/dL Hct 38.7 (34.0-46.0) % MCV 87.3 (80.0-100.0) fL MCH 27.9 (25.0-35.0) pg MCHC 31.9 (31.0-37.0) g/dL RDW 14.8 (11.5-15.5) % Plt Count 350 (150-450) k/uL Neutrophils % 75 % Lymphocytes % 16 % Monocytes % 5 % Eosinophils % 3 % Basophils % 1 % Neutrophils # 11.5 H (1.3-7.7) k/uL Lymphocytes # 2.5 (1.0-4.8) k/uL Monocytes # 0.7 (0-1.0) k/uL Eosinophils # 0.4 (0-0.7) k/uL Basophils # 0.1 (0-0.2) k/uL PT 9.6 (9.0-12.0) sec INR 0.9 (<1.2) APTT 26.8 (22.0-30.0) sec Sodium (137-145) mmol/L Potassium (3.5-5.1) mmol/L Chloride (98-107) mmol/L Carbon Dioxide (22-30) mmol/L Anion Gap mmol/L BUN (7-17) mg/dL Creatinine (0.52-1.04) mg/dL Est GFR (CKD-EPI)AfAm (>60 ml/min/1.73 sqM) Est GFR (CKD-EPI)NonAf (>60 ml/min/1.73 sqM) Glucose (74-99) mg/dL POC Glucose (mg/dL) 41 L (75-99) mg/dL POC Glu [employer] Faculty Member ID Stefanie Prather Calcium (8.4-10.2) mg/dL Total Bilirubin (0.2-1.3) mg/dL AST (14-36) U/L ALT (4-34) U/L Alkaline Phosphatase (38-126) U/L Troponin I (0.000-0.034) ng/mL Total Protein (6.3-8.2) g/dL Albumin (3.5-5.0) g/dL 09/05/19 09/05/19 09/05/19 Range/Units 20:12 20:12 20:17 WBC (3.8-10.6) k/uL RBC (3.80-5.40) m/uL Hgb (11.4-16.0) gm/dL Hct (34.0-46.0) % MCV (80.0-100.0) fL MCH (25.0-35.0) pg MCHC (31.0-37.0) g/dL RDW (11.5-15.5) % Plt Count (150-450) k/uL Neutrophils % % Lymphocytes % % Monocytes % % Eosinophils % % Basophils % % Neutrophils # (1.3-7.7) k/uL Lymphocytes # (1.0-4.8) k/uL Monocytes # (0-1.0) k/uL Eosinophils # (0-0.7) k/uL Basophils # (0-0.2) k/uL PT (9.0-12.0) sec INR (<1.2) APTT (22.0-30.0) sec Sodium 136 L (137-145) mmol/L Potassium 2.9 L (3.5-5.1) mmol/L Chloride 97 L (98-107) mmol/L Carbon Dioxide 28 (22-30) mmol/L Anion Gap 11 mmol/L BUN 31 H (7-17) mg/dL Creatinine 0.92 (0.52-1.04) mg/dL Est GFR (CKD-EPI)AfAm 73 (>60 ml/min/1.73 sqM) Est GFR (CKD-EPI)NonAf 63 (>60 ml/min/1.73 sqM) Glucose 36 L* (74-99) mg/dL POC Glucose (mg/dL) 235 H (75-99) mg/dL POC Glu [employer] Faculty Member ID Dyana Booker Calcium 9.5 (8.4-10.2) mg/dL Total Bilirubin 0.5 (0.2-1.3) mg/dL AST 18 (14-36) U/L ALT 14 (4-34) U/L Alkaline Phosphatase 139 H (38-126) U/L Troponin I <0.012 (0.000-0.034) ng/mL Total Protein 7.2 (6.3-8.2) g/dL Albumin 4.1 (3.5-5.0) g/dL 09/05/19 09/05/19 09/05/19 Range/Units 20:38 20:55 21:16 WBC (3.8-10.6) k/uL RBC (3.80-5.40) m/uL Hgb (11.4-16.0) gm/dL Hct (34.0-46.0) % MCV (80.0-100.0) fL MCH (25.0-35.0) pg MCHC (31.0-37.0) g/dL RDW (11.5-15.5) % Plt Count (150-450) k/uL Neutrophils % % Lymphocytes % % Monocytes % % Eosinophils % % Basophils % % Neutrophils # (1.3-7.7) k/uL Lymphocytes # (1.0-4.8) k/uL Monocytes # (0-1.0) k/uL Eosinophils # (0-0.7) k/uL Basophils # (0-0.2) k/uL PT (9.0-12.0) sec INR (<1.2) APTT (22.0-30.0) sec Sodium (137-145) mmol/L Potassium (3.5-5.1) mmol/L Chloride (98-107) mmol/L Carbon Dioxide (22-30) mmol/L Anion Gap mmol/L BUN (7-17) mg/dL Creatinine (0.52-1.04) mg/dL Est GFR (CKD-EPI)AfAm (>60 ml/min/1.73 sqM) Est GFR (CKD-EPI)NonAf (>60 ml/min/1.73 sqM) Glucose (74-99) mg/dL POC Glucose (mg/dL) 176 H 118 H 131 H (75-99) mg/dL POC Glu [employer] Faculty Member ID Callewaert, Stefanie Lealewaert, Stefanie Martinezaert, Stefanie Calcium (8.4-10.2) mg/dL Total Bilirubin (0.2-1.3) mg/dL AST (14-36) U/L ALT (4-34) U/L Alkaline Phosphatase (38-126) U/L Troponin I (0.000-0.034) ng/mL Total Protein (6.3-8.2) g/dL Albumin (3.5-5.0) g/dL 09/05/19 Range/Units 21:50 WBC (3.8-10.6) k/uL RBC (3.80-5.40) m/uL Hgb (11.4-16.0) gm/dL Hct (34.0-46.0) % MCV (80.0-100.0) fL MCH (25.0-35.0) pg MCHC (31.0-37.0) g/dL RDW (11.5-15.5) % Plt Count (150-450) k/uL Neutrophils % % Lymphocytes % % Monocytes % % Eosinophils % % Basophils % % Neutrophils # (1.3-7.7) k/uL Lymphocytes # (1.0-4.8) k/uL Monocytes # (0-1.0) k/uL Eosinophils # (0-0.7) k/uL Basophils # (0-0.2) k/uL PT (9.0-12.0) sec INR (<1.2) APTT (22.0-30.0) sec Sodium (137-145) mmol/L Potassium (3.5-5.1) mmol/L Chloride (98-107) mmol/L Carbon Dioxide (22-30) mmol/L Anion Gap mmol/L BUN (7-17) mg/dL Creatinine (0.52-1.04) mg/dL Est GFR (CKD-EPI)AfAm (>60 ml/min/1.73 sqM) Est GFR (CKD-EPI)NonAf (>60 ml/min/1.73 sqM) Glucose (74-99) mg/dL POC Glucose (mg/dL) 174 H (75-99) mg/dL POC Glu [employer] Faculty Member ID Stefanie Prather Calcium (8.4-10.2) mg/dL Total Bilirubin (0.2-1.3) mg/dL AST (14-36) U/L ALT (4-34) U/L Alkaline Phosphatase (38-126) U/L Troponin I (0.000-0.034) ng/mL Total Protein (6.3-8.2) g/dL Albumin (3.5-5.0) g/dL - EKG Data -: EKG Interpreted by Me (and Dr. Mayo ) EKG Comments: Ventricular rate 81,. 166, QRS 116, QT/QTc 4:30 since 400 and. Normal sinus rhythm. Possible anterolateral infarct age indeterminate. No concern for acute ischemia at this time. Disposition Clinical Impression: Hypoglycemia, Hypokalemia Disposition: HOME SELF-CARE Condition: Stable Instructions (If sedation given, give patient instructions): Hypoglycemia in a Person with Diabetes (ED), Hypokalemia (ED) Additional Instructions: Follow-up with primary care provider tomorrow. Take potassium supplements as directed. Continue to monitor blood sugar at home. Continue to encourage eati ng and drinking. Return to ER if condition worsens. Prescriptions: Potassium Chloride ER [K-Dur 20] 20 meq PO DAILY 3 Days #3 tab Is patient prescribed a controlled substance at d/c from ED?: No Referrals: Kavya Atkins DO [Primary Care Provider] - 1-2 days
[2019-09-05 20:26] LABS: Basophils # (A) 0.1 k/uL (0-0.2); Basophils % (A) 1 %; Eosinophils # (A) 0.4 k/uL (0-0.7); Eosinophils % (A) 3 %; HCT 38.7 % (34.0-46.0); HGB 12.3 gm/dL (11.4-16.0); Lymphocytes # (A) 2.5 k/uL (1.0-4.8); Lymphocytes % (A) 16 %; MCH 27.9 pg (25.0-35.0); MCHC 31.9 g/dL (31.0-37.0); MCV 87.3 fL (80.0-100.0); Mean Platelet Volume 9.1; Monocytes # (A) 0.7 k/uL (0-1.0); Monocytes % (A) 5 %; Neutrophils # (A) 11.5 k/uL (1.3-7.7); Neutrophils % (A) 75 %; Platelet Count 350 k/uL (150-450); RBC 4.43 m/uL (3.80-5.40); RDW 14.8 % (11.5-15.5); WBC 15.3 k/uL (3.8-10.6)
[2019-09-05 20:30] LABS: Glucose,Whole Blood 235 mg/dL (75-99)
[2019-09-05 20:34] LABS: Albumin 4.1 g/dL (3.5-5.0); Calcium 9.5 mg/dL (8.4-10.2); Potassium 2.9 mmol/L (3.5-5.1); Total Bilirubin 0.5 mg/dL (0.2-1.3); Total Protein 7.2 g/dL (6.3-8.2)
--- NOTE | 2019-09-05 20:38 | CT ---
EXAMINATION TYPE: CT brain wo con for TPA DATE OF EXAM: 09/05/2019 HISTORY: weakness CT DLP: 1129.4 mGycm. Automated Exposure Control for Dose Reduction was Utilized. TECHNIQUE: CT scan of the head is performed without contrast. COMPARISON: CT brain August 16, 2017. FINDINGS: There is no acute intracranial hemorrhage or midline shift identified. There is diffuse v entricular and sulcal prominence consistent with diffuse age-related cerebral atrophy. There is low- attenuation in the periventricular white matter consistent with chronic small vessel ischemic change. The calvarium is intact. The globes are intact and the visualized sinuses are clear. IMPRESSION: No acute intracranial hemorrhage or midline shift. There is moderate diffuse cerebral a trophy and chronic small vessel ischemic change noted. No significant change from prior CT.
[2019-09-05 20:39] LABS: INR 0.9 (<1.2); Partial Thromboplastin Time 26.8 sec (22.0-30.0); Prothrombin Time 9.6 sec (9.0-12.0)
[2019-09-05 20:40] LABS: Glucose,Whole Blood 176 mg/dL (75-99)
[2019-09-05 20:58] LABS: Glucose,Whole Blood 118 mg/dL (75-99)
[2019-09-05] MEDS ORDERED: POTASSIUM CHLORIDE ER 20 MEQ TAB.ER PO STA (21:17)
[2019-09-05 21:18] LABS: Glucose,Whole Blood 131 mg/dL (75-99)
[2019-09-05 21:24] VITALS: RESP 17
[2019-09-05 21:52] LABS: Glucose,Whole Blood 174 mg/dL (75-99)
[2019-09-05 22:33] LABS: Glucose,Whole Blood 181 mg/dL (75-99)
[2019-09-05 22:42] VITALS: BP 156/80; PULSE 75
== END 2019-09-05 23:00 | disposition home or self-care (01) ==
LOC: EC 19:47
DX: E11.649 Type 2 diabetes mellitus with hypoglycemia without coma (principal); E87.6 Hypokalemia; J44.9 Chronic obstructive pulmonary disease, unspecified; G30.9 Alzheimer's disease, unspecified; F02.80 Dementia in other diseases classified elsewhere, unspecified severity, without behavioral disturbance, psychotic disturbance, mood disturbance, and anxiety; E11.9 Type 2 diabetes mellitus without complications; E78.5 Hyperlipidemia, unspecified; I10 Essential (primary) hypertension; Z79.890 Hormone replacement therapy; Z79.82 Long term (current) use of aspirin; Z79.4 Long term (current) use of insulin; Z79.899 Other long term (current) drug therapy; Z90.13 Acquired absence of bilateral breasts and nipples; Z96.653 Presence of artificial knee joint, bilateral
CPT/HCPCS: 36415; 70450; 80053; 84484; 85025; 85610; 85730; 93005; 96374; 99285

== ENCOUNTER 2021-07-24 13:23 | Emergency (ER) | payer MEDICARE ==
[2021-07-24 13:41] VITALS: BP 133/77; PULSE 92; RESP 14; TEMP 98.1
[2021-07-24 16:46] LABS: Appearance,Urine Turbid (Clear); Bacteria,Urine Many /hpf; Bilirubin,Urine Negative (Negative); Blood,Urine Trace (Negative); Budding Yeast,Urine Many /hpf; Color,Urine Yellow; Glucose,Urine (UA) Negative (Negative); Ketones,Urine 2+ (Negative); Leukocyte Esterase,Urine Large (Negative); Mucus,Urine Moderate /hpf; Nitrite,Urine Positive (Negative); Protein,Urine 3+ (Negative); RBC,Urine 68 /hpf (0-5); Squamous Epithelial Cell,Urine 2 /hpf (0-4); WBC,Urine >182 /hpf (0-5)
--- NOTE | 2021-07-24 16:52 | ED ---
Female Urogenital HPI - General Chief complaint: Urogenital Stated complaint: UTI/AMS Time Seen by Provider: 07/24/21 16:19 Source: family, RN notes reviewed Mode of arrival: wheelchair Limitations: altered mental status (secondary to alzheimer's) - History of Present Illness Initial comments: This is a 71-year-old female who presents to the emergency department for possible UTI. Her is at bedside and states that she has Alzheimer's and is a poor communicator. For the last 2 days she has had an increase in confusion, he states that whenever she has urinary tract infections the confusion worsens. Her last UTI was approximately 8 months ago. Patient makes eye contact and smiles, however she does not answer any questions upon examination. Her states that she does communicate with him at home. Onset/Timin -: days(s) - Related Data Home Medications Medication Instructions Recorded Confirmed Levothyroxine Sodium [Synthroid] 50 mcg PO DAILY 09/13/15 07/24/21 Aspirin EC [Ecotrin Low Dose] 81 mg PO BID 08/17/17 07/24/21 Omeprazole 40 mg PO DAILY 08/17/17 07/24/21 rOPINIRole HCL [Requip] 3 mg PO HS 10/06/18 07/24/21 Ascorbic Acid [Vitamin C] 500 mg PO DAILY 07/24/21 07/24/21 Cholecalciferol [Vitamin D3 (25 25 mcg PO DAILY 07/24/21 07/24/21 Mcg = 1000 Iu)] Cranberry Fruit Extract [Cranberry] 500 mg PO DAILY 07/24/21 07/24/21 Gabapentin 300 mg PO BID 07/24/21 07/24/21 Insulin NPH Hum/Reg Insulin Hm See Protocol SQ TID-W/MEALS PRN 07/24/21 07/24/21 [NovoLIN 70-30 100 UNIT/ML VIAL] Quercetin 1 tab PO DAILY 07/24/21 07/24/21 Zinc 50 mg PO DAILY 07/24/21 07/24/21 metFORMIN HCL 500 mg PO BID-W/MEALS 07/24/21 07/24/21 Previous Rx's Medication Instructions Recorded Metoprolol Tartrate [Lopressor] 25 mg PO DAILY tab 08/20/17 Cephalexin [Keflex] 500 mg PO Q12HR 7 Days #14 cap 07/24/21 Allergies Allergy/AdvReac Type Severity Reaction Status Date / Time No Known Allergies Allergy Verified 07/24/21 17:32 Review of Systems ROS Statement: Those systems with pertinent positive or pertinent negative responses have been documented in the HPI. ROS Other: All systems not noted in ROS Statement are negative. Constitutional: Denies: fever, chills Gastrointestinal: Denies: vomiting, diarrhea Genitourinary: Denies: hematuria Skin: Denies: rash Past Medical History Past Medical History: COPD, Dementia, Diabetes Mellitus, Hyperlipidemia, Hypertension Additional Past Medical History / Comment(s): 09/02/15: Fell w/ L1 fracture. Chronic back pain due to several falls. Alzheimer's dementia. History of Any Multi-Drug Resistant Organisms: None Reported Past Surgical History: Back Surgery, Breast Surgery, Cholecystectomy, Joint Replacement Additional Past Surgical History / Comment(s): Bilateral mastectomy - fibrocystic disease. Bilateral kne replacement. Kyphoplasty L1 on 09/20/15. Past Anesthesia/Blood Transfusion Reactions: No Reported Reaction Past Psychological History: Unable to Obtain Past Alcohol Use History: None Reported Past Drug Use History: None Reported - Past Family History Mother Family Medical History: Diabetes Mellitus Sister(s) Family Medical History: Diabetes Mellitus General Exam Limitations: altered mental status (secondary to alzheimer's) General appearance: alert, in no apparent distress Head exam: Present: atraumatic, normocephalic, normal inspection Respiratory exam: Present: normal lung sounds bilaterally. Absent: respiratory distress, wheezes, rales, rhonchi, stridor Cardiovascular Exam: Present: regular rate, normal rhythm, normal heart sounds. Absent: systolic murmur, diastolic murmur, rubs, gallop, clicks GI/Abdominal exam: Present: soft, normal bowel sounds. Absent: distended, tenderness, guarding, rebound, rigid Neurological exam: Present: alert Skin exam: Present: warm, dry, intact, normal color. Absent: rash Course Vital Signs 07/24/21 13:39 Temperature 98.1 F Pulse Rate 92 Respiratory 14 Rate Blood Pressure 133/77 O2 Sat by Pulse 98 Oximetry Medical Decision Making - Medical Decision Making This is a 71-year-old female who presents to the emergency department for increasing confusion and possible UTI. Patient's urine has positive nitrites, budding yeast, and bacteria, all consistent with a UTI. Lab work does not reveal an elevated white blood cell count. Lactic acid and troponin are within normal limits. Patient given 1 L bolus of normal saline and 1 g of ceftriaxone in the emergency department. Her notes that given the confusion, she is unwilling to take pills, however she normally takes them without difficulty. 500mg of Keflex administered in the emergency department to see if patient can tolerate pills. She was able to take the Keflex without any difficulties. Patient's states that he feels safe bringing her home. Seven-day course of Keflex sent to the patient's pharmacy. She will be contacted if the urinary culture shows that an alternative antibiotic is indicated. Of note, patient's EKG does exhibit changes from prior, including a junctional rhythm (see scanned in report). Patient does have a noted tremor and was unable to sit still for the EKG. Her states that she has not complained of any chest pain or shortness of breath and she has no history of cardiac problems. Her vitals are within normal limits, and she had a negative troponin. Patient's advised to follow-up with her PCP to discuss further outpatient workup. This case was discussed in detail with the attending ED physician. Presentation, findings, and treatment plan discussed in detail as well. - Lab Data Result diagrams: 07/24/21 17:31 07/24/21 17:31 Lab Results 07/24/21 07/24/21 07/24/21 Range/Units 16:35 17:31 17:31 WBC 10.3 (3.8-10.6) k/uL RBC 4.24 (3.80-5.40) m/uL Hgb 12.3 (11.4-16.0) gm/dL Hct 38.8 (34.0-46.0) % MCV 91.4 (80.0-100.0) fL MCH 29.0 (25.0-35.0) pg MCHC 31.7 (31.0-37.0) g/dL RDW 14.6 (11.5-15.5) % Plt Count 366 (150-450) k/uL MPV 9.9 Neutrophils % 76 % Lymphocytes % 16 % Monocytes % 5 % Eosinophils % 1 % Basophils % 1 % Neutrophils # 7.8 H (1.3-7.7) k/uL Lymphocytes # 1.6 (1.0-4.8) k/uL Monocytes # 0.5 (0-1.0) k/uL Eosinophils # 0.1 (0-0.7) k/uL Basophils # 0.1 (0-0.2) k/uL Sodium 140 (137-145) mmol/L Potassium 3.4 L (3.5-5.1) mmol/L Chloride 102 (98-107) mmol/L Carbon Dioxide 25 (22-30) mmol/L Anion Gap 13 mmol/L BUN 17 (7-17) mg/dL Creatinine 0.96 (0.52-1.04) mg/dL Est GFR (CKD-EPI)AfAm 68 (>60 ml/min/1.73 sqM) Est GFR (CKD-EPI)NonAf 59 (>60 ml/min/1.73 sqM) Glucose 219 H (74-99) mg/dL Plasma Lactic Acid Edmund (0.7-2.0) mmol/L Calcium 10.2 (8.4-10.2) mg/dL Total Bilirubin 0.9 (0.2-1.3) mg/dL AST 15 (14-36) U/L ALT 12 (4-34) U/L Alkaline Phosphatase 126 (38-126) U/L Troponin I (0.000-0.034) ng/mL Total Protein 7.2 (6.3-8.2) g/dL Albumin 4.3 (3.5-5.0) g/dL Amylase 50 (30-110) U/L Lipase 55 (23-300) U/L Urine Color Yellow Urine Appearance Turbid H (Clear) Urine pH 6.0 (5.0-8.0) Ur Specific [place] 1.020 (1.001-1.035) Urine Protein 3+ H (Negative) Urine Glucose (UA) Negative (Negative) Urine Ketones 2+ H (Negative) Urine Blood Trace H (Negative) Urine Nitrite Positive H (Negative) Urine Bilirubin Negative (Negative) Urine Urobilinogen 4.0 (<2.0) mg/dL Ur Leukocyte Esterase Large H (Negative) Urine RBC 68 H (0-5) /hpf Urine WBC >182 H (0-5) /hpf Urine WBC Clumps Moderate H (None) /hpf Ur Squamous Epith Cells 2 (0-4) /hpf Urine Bacteria Many H (None) /hpf Urine Mucus Moderate H (None) /hpf Urine Yeast (Budding) Many H (None) /hpf 07/24/21 07/24/21 Range/Units 17:31 17:31 WBC (3.8-10.6) k/uL RBC (3.80-5.40) m/uL Hgb (11.4-16.0) gm/dL Hct (34.0-46.0) % MCV (80.0-100.0) fL MCH (25.0-35.0) pg MCHC (31.0-37.0) g/dL RDW (11.5-15.5) % Plt Count (150-450) k/uL MPV Neutrophils % % Lymphocytes % % Monocytes % % Eosinophils % % Basophils % % Neutrophils # (1.3-7.7) k/uL Lymphocytes # (1.0-4.8) k/uL Monocytes # (0-1.0) k/uL Eosinophils # (0-0.7) k/uL Basophils # (0-0.2) k/uL Sodium (137-145) mmol/L Potassium (3.5-5.1) mmol/L Chloride (98-107) mmol/L Carbon Dioxide (22-30) mmol/L Anion Gap mmol/L BUN (7-17) mg/dL Creatinine (0.52-1.04) mg/dL Est GFR (CKD-EPI)AfAm (>60 ml/min/1.73 sqM) Est GFR (CKD-EPI)NonAf (>60 ml/min/1.73 sqM) Glucose (74-99) mg/dL Plasma Lactic Acid Edmund 1.5 (0.7-2.0) mmol/L Calcium (8.4-10.2) mg/dL Total Bilirubin (0.2-1.3) mg/dL AST (14-36) U/L ALT (4-34) U/L Alkaline Phosphatase (38-126) U/L Troponin I 0.016 (0.000-0.034) ng/mL Total Protein (6.3-8.2) g/dL Albumin (3.5-5.0) g/dL Amylase (30-110) U/L Lipase (23-300) U/L Urine Color Urine Appearance (Clear) Urine pH (5.0-8.0) Ur Specific [place] (1.001-1.035) Urine Protein (Negative) Urine Glucose (UA) (Negative) Urine Ketones (Negative) Urine Blood (Negative) Urine Nitrite (Negative) Urine Bilirubin (Negative) Urine Urobilinogen (<2.0) mg/dL Ur Leukocyte Esterase (Negative) Urine RBC (0-5) /hpf Urine WBC (0-5) /hpf Urine WBC Clumps (None) /hpf Ur Squamous Epith Cells (0-4) /hpf Urine Bacteria (None) /hpf Urine Mucus (None) /hpf Urine Yeast (Budding) (None) /hpf - EKG Data EKG Comments: Junctional rhythm with occasional supraventricular premature complexes. Incomplete right bundle branch block. Ventricular rate 89 bpm, WI interval 136 ms, QRS duration 98 ms, QTC 422 ms. Disposition Clinical Impression: Urinary tract infection Disposition: HOME SELF-CARE Instructions (If sedation given, give patient instructions): Urinary Tract Infection in Women (ED) Additional Instructions: Return to the emergency department with any new, worsening, or concerning symptoms. Take the antibiotic as prescribed for 7 days. Follow-up with her primary care provider in 1 to 2 days. Prescriptions: Cephalexin [Keflex] 500 mg PO Q12HR 7 Days #14 cap Is patient prescribed a controlled substance at d/c from ED?: No Referrals: Percy King DO [Primary Care Provider] - 1-2 days
[2021-07-24] MEDS ORDERED: cefTRIAXone IN SWFI 1,000 MG/10 ML SYRINGE IVP STA (17:39)
[2021-07-24] MEDS ORDERED: SODIUM CHLORIDE 0.9% 1,000 ML IV STA (17:40)
[2021-07-24 17:52] LABS: Basophils # (A) 0.1 k/uL (0-0.2); Basophils % (A) 1 %; Eosinophils # (A) 0.1 k/uL (0-0.7); Eosinophils % (A) 1 %; HCT 38.8 % (34.0-46.0); HGB 12.3 gm/dL (11.4-16.0); Lymphocytes # (A) 1.6 k/uL (1.0-4.8); Lymphocytes % (A) 16 %; MCHC 31.7 g/dL (31.0-37.0); MCV 91.4 fL (80.0-100.0); Mean Platelet Volume 9.9; Monocytes # (A) 0.5 k/uL (0-1.0); Monocytes % (A) 5 %; Neutrophils # (A) 7.8 k/uL (1.3-7.7); Neutrophils % (A) 76 %; Platelet Count 366 k/uL (150-450); RBC 4.24 m/uL (3.80-5.40); RDW 14.6 % (11.5-15.5); WBC 10.3 k/uL (3.8-10.6)
[2021-07-24 17:54] LABS: Albumin 4.3 g/dL (3.5-5.0); Calcium 10.2 mg/dL (8.4-10.2); Potassium 3.4 mmol/L (3.5-5.1); Total Bilirubin 0.9 mg/dL (0.2-1.3); Total Protein 7.2 g/dL (6.3-8.2)
[2021-07-24] MEDS ORDERED: CEPHALEXIN 500 MG CAP PO STA (18:27)
== END 2021-07-24 19:59 | disposition home or self-care (01) ==
LOC: EC 13:23
DX: N39.0 Urinary tract infection, site not specified (principal); D72.829 Elevated white blood cell count, unspecified; J44.9 Chronic obstructive pulmonary disease, unspecified; E11.9 Type 2 diabetes mellitus without complications; E78.5 Hyperlipidemia, unspecified; I10 Essential (primary) hypertension; Z79.4 Long term (current) use of insulin; Z79.899 Other long term (current) drug therapy; Z79.82 Long term (current) use of aspirin; Z79.84 Long term (current) use of oral hypoglycemic drugs
CPT/HCPCS: 36415; 93005; 80053; 82150; 83605; 83690; 84484; 85025; 81001; 87086; 87077; 87186; 99283; 96374; 96361; J0696

== ENCOUNTER 2021-08-07 21:43 | Inpatient (IN) | payer MEDICARE ==
--- NOTE | 2021-08-07 22:13 | ED ---
Altered Mental Status HPI - General Chief Complaint: Altered Mental Status Stated Complaint: Altered Mental Status Time Seen by Provider: 08/07/21 21:46 Source: EMS Mode of arrival: EMS Limitations: altered mental status - History of Present Illness Initial Comments: This patient is a 71-year-old woman who reportedly has history of underlying dementia, sent here to be evaluated for altered mental status. The patient had been at home and family member told EMS that she was not acting as her usual self. They phoned ambulance and she is delivered here, there is no family member at bedside presently. When I interview the patient, she is she is stat ing that she feels okay. She denies pain anywhere. No dyspnea. She denies nausea and vomiting. MD Complaint: altered mental status, confusion -: unknown Associated Symptoms: denies other symptoms - Related Data Home Medications Medication Instructions Recorded Confirmed Levothyroxine Sodium [Synthroid] 50 mcg PO DAILY 09/13/15 07/24/21 Aspirin EC [Ecotrin Low Dose] 81 mg PO BID 08/17/17 07/24/21 Omeprazole 40 mg PO DAILY 08/17/17 07/24/21 rOPINIRole HCL [Requip] 3 mg PO HS 10/06/18 07/24/21 Ascorbic Acid [Vitamin C] 500 mg PO DAILY 07/24/21 07/24/21 Cholecalciferol [Vitamin D3 (25 25 mcg PO DAILY 07/24/21 07/24/21 Mcg = 1000 Iu)] Cranberry Fruit Extract [Cranberry] 500 mg PO DAILY 07/24/21 07/24/21 Gabapentin 300 mg PO BID 07/24/21 07/24/21 Insulin NPH Hum/Reg Insulin Hm See Protocol SQ TID-W/MEALS PRN 07/24/21 07/24/21 [NovoLIN 70-30 100 UNIT/ML VIAL] Quercetin 1 tab PO DAILY 07/24/21 07/24/21 Zinc 50 mg PO DAILY 07/24/21 07/24/21 metFORMIN HCL 500 mg PO BID-W/MEALS 07/24/21 07/24/21 Previous Rx's Medication Instructions Recorded Metoprolol Tartrate [Lopressor] 25 mg PO DAILY tab 08/20/17 Cephalexin [Keflex] 500 mg PO Q12HR 7 Days #14 cap 07/24/21 Allergies Allergy/AdvReac Type Severity Reaction Status Date / Time No Known Allergies Allergy Verified 08/07/21 21:46 Review of Systems ROS Statement: Those systems with pertinent positive or pertinent negative responses have been documented in the HPI. ROS Other: All systems not noted in ROS Statement are negative. Limitations: ROS unobtainable due to patients medical condition Constitutional: Denies: fever Respiratory: Denies: cough, dyspnea Cardiovascular: Denies: chest pain Gastrointestinal: Denies: abdominal pain, nausea, vomiting Neurological: Denies: headache Past Medical History Past Medical History: COPD, Dementia, Diabetes Mellitus, Hyperlipidemia, Hypertension Additional Past Medical History / Comment(s): 09/02/15: Fell w/ L1 fracture. Chronic back pain due to several falls. Alzheimer's dementia. History of Any Multi-Drug Resistant Organisms: None Reported Past Surgical History: Back Surgery, Breast Surgery, Cholecystectomy, Joint Replacement Additional Past Surgical History / Comment(s): Bilateral mastectomy - fibrocystic disease. Bilateral kne replacement. Kyphoplasty L1 on 09/20/15. Past Anesthesia/Blood Transfusion Reactions: No Reported Reaction Past Psychological History: Unable to Obtain Past Alcohol Use History: None Reported Past Drug Use History: None Reported - Past Family History Mother Family Medical History: Diabetes Mellitus Sister(s) Family Medical History: Diabetes Mellitus General Exam Limitations: altered mental status General appearance: alert, in no apparent distress, other (Tremulous) Head exam: Present: atraumatic, normocephalic Eye exam: Present: normal appearance, EOMI. Absent: scleral icterus, conjunctival injection, nystagmus ENT exam: Present: mucous membranes dry Neck exam: Present: normal inspection, full ROM. Absent: tenderness Respiratory exam: Present: normal lung sounds bilaterally. Absent: respiratory distress, wheezes, rales, rhonchi, stridor Cardiovascular Exam: Present: irregular rhythm, normal heart sounds. Absent: systolic murmur, diastolic murmur, rubs, gallop GI/Abdominal exam: Present: soft. Absent: distended, tenderness, guarding, rebound, rigid Extremities exam: Present: normal inspection, normal capillary refill. Absent: pedal edema, calf tenderness Back exam: Present: normal inspection. Absent: CVA tenderness (R), CVA tenderness (L) Neurological exam: Present: alert, CN II-XII intact. Absent: oriented X3 (Patient is oriented only to person. Neurologic exam is slightly limited but the patient does follow simple commands, moving all 4 extremities.), motor sensory deficit Skin exam: Present: warm, dry, intact, normal color. Absent: rash Course Vital Signs 08/07/21 08/08/21 08/08/21 21:47 00:20 01:03 Temperature 98.2 F Pulse Rate 89 96 94 Respiratory 18 20 20 Rate Blood Pressure 161/89 163/93 122/90 O2 Sat by Pulse 97 98 98 Oximetry Medical Decision Making - Lab Data Result diagrams: 08/07/21 22:15 08/07/21 22:15 Lab Results 08/07/21 08/07/21 08/07/21 Range/Units 22:15 22:15 22:15 WBC 8.1 (3.8-10.6) k/uL RBC 3.91 (3.80-5.40) m/uL Hgb 11.3 L (11.4-16.0) gm/dL Hct 35.4 (34.0-46.0) % MCV 90.5 (80.0-100.0) fL MCH 29.0 (25.0-35.0) pg MCHC 32.0 (31.0-37.0) g/dL RDW 13.9 (11.5-15.5) % Plt Count 283 (150-450) k/uL MPV 10.6 Neutrophils % 64 % Lymphocytes % 25 % Monocytes % 6 % Eosinophils % 3 % Basophils % 1 % Neutrophils # 5.2 (1.3-7.7) k/uL Lymphocytes # 2.0 (1.0-4.8) k/uL Monocytes # 0.5 (0-1.0) k/uL Eosinophils # 0.2 (0-0.7) k/uL Basophils # 0.1 (0-0.2) k/uL PT 11.6 (9.0-12.0) sec INR 1.1 (<1.2) APTT 26.3 (22.0-30.0) sec Sodium (137-145) mmol/L Potassium (3.5-5.1) mmol/L Chloride (98-107) mmol/L Carbon Dioxide (22-30) mmol/L Anion Gap mmol/L BUN (7-17) mg/dL Creatinine (0.52-1.04) mg/dL Est GFR (CKD-EPI)AfAm (>60 ml/min/1.73 sqM) Est GFR (CKD-EPI)NonAf (>60 ml/min/1.73 sqM) Glucose (74-99) mg/dL Calcium (8.4-10.2) mg/dL Total Bilirubin (0.2-1.3) mg/dL AST (14-36) U/L ALT (4-34) U/L Alkaline Phosphatase (38-126) U/L Troponin I (0.000-0.034) ng/mL Total Protein (6.3-8.2) g/dL Albumin (3.5-5.0) g/dL Urine Color Light Yellow Urine Appearance Turbid H (Clear) Ur Specific [place] [employer] Urine RBC >182 H (0-5) /hpf Urine WBC >182 H (0-5) /hpf Urine WBC Clumps Many H (None) /hpf Ur Squamous Epith Cells 1806 H (0-4) /hpf Urine Mucus Many H (None) /hpf Urine Yeast (Budding) Many H (None) /hpf Serum Alcohol mg/dL 08/07/21 08/07/21 Range/Units 22:15 22:15 WBC (3.8-10.6) k/uL RBC (3.80-5.40) m/uL Hgb (11.4-16.0) gm/dL Hct (34.0-46.0) % MCV (80.0-100.0) fL MCH (25.0-35.0) pg MCHC (31.0-37.0) g/dL RDW (11.5-15.5) % Plt Count (150-450) k/uL MPV Neutrophils % % Lymphocytes % % Monocytes % % Eosinophils % % Basophils % % Neutrophils # (1.3-7.7) k/uL Lymphocytes # (1.0-4.8) k/uL Monocytes # (0-1.0) k/uL Eosinophils # (0-0.7) k/uL Basophils # (0-0.2) k/uL PT (9.0-12.0) sec INR (<1.2) APTT (22.0-30.0) sec Sodium 141 (137-145) mmol/L Potassium 2.7 L* (3.5-5.1) mmol/L Chloride 103 (98-107) mmol/L Carbon Dioxide 30 (22-30) mmol/L Anion Gap 8 mmol/L BUN 16 (7-17) mg/dL Creatinine 0.88 (0.52-1.04) mg/dL Est GFR (CKD-EPI)AfAm 76 (>60 ml/min/1.73 sqM) Est GFR (CKD-EPI)NonAf 66 (>60 ml/min/1.73 sqM) Glucose 306 H (74-99) mg/dL Calcium 9.5 (8.4-10.2) mg/dL Total Bilirubin 0.8 (0.2-1.3) mg/dL AST 34 (14-36) U/L ALT 22 (4-34) U/L Alkaline Phosphatase 108 (38-126) U/L Troponin I 0.016 (0.000-0.034) ng/mL Total Protein 6.0 L (6.3-8.2) g/dL Albumin 3.6 (3.5-5.0) g/dL Urine Color Urine Appearance (Clear) Ur Specific [place] Urine RBC (0-5) /hpf Urine WBC (0-5) /hpf Urine WBC Clumps (None) /hpf Ur Squamous Epith Cells (0-4) /hpf Urine Mucus (None) /hpf Urine Yeast (Budding) (None) /hpf Serum Alcohol <10 mg/dL - EKG Data -: EKG Interpreted by De EKG shows normal: axis (Normal), intervals (Normal) Rate: normal (Rate 92 bpm) Interpretation: nonspecific ST-T wave changes, other (Rhythm appears to be atrial fibrillation though there is a lot of baseline artifact, due to tremor. ) Disposition Clinical Impression: Altered mental status, Urinary tract infection, Hypokalemia, Hyperglycemia due to diabetes mellitus Disposition: ADMITTED IP TO THIS HOSP Condition: Poor Is patient prescribed a controlled substance at d/c from ED?: No Referrals: Percy King DO [Primary Care Provider] - 1-2 days Decision Date: 08/08/21 Decision Time: 00:35
[2021-08-07 22:30] LABS: Basophils # (A) 0.1 k/uL (0-0.2); Basophils % (A) 1 %; Eosinophils # (A) 0.2 k/uL (0-0.7); Eosinophils % (A) 3 %; HCT 35.4 % (34.0-46.0); HGB 11.3 gm/dL (11.4-16.0); Lymphocytes % (A) 25 %; MCV 90.5 fL (80.0-100.0); Mean Platelet Volume 10.6; Monocytes # (A) 0.5 k/uL (0-1.0); Monocytes % (A) 6 %; Neutrophils # (A) 5.2 k/uL (1.3-7.7); Neutrophils % (A) 64 %; Platelet Count 283 k/uL (150-450); RBC 3.91 m/uL (3.80-5.40); RDW 13.9 % (11.5-15.5); WBC 8.1 k/uL (3.8-10.6)
[2021-08-07 22:39] LABS: ALT 22 U/L (4-34); AST 34 U/L (14-36); African American GFR (CKD) 76 (>60 ml/min/1.73 sqM); Albumin 3.6 g/dL (3.5-5.0); Alcohol <10 mg/dL; Alkaline Phosphatase 108 U/L (38-126); Anion Gap 8 mmol/L; Blood Urea Nitrogen 16 mg/dL (7-17); Calcium 9.5 mg/dL (8.4-10.2); Carbon Dioxide 30 mmol/L (22-30); Chloride 103 mmol/L (98-107); Glucose 306 mg/dL (74-99); Non-African American GFR(CKD) 66 (>60 ml/min/1.73 sqM); Sodium 141 mmol/L (137-145); Total Bilirubin 0.8 mg/dL (0.2-1.3)
--- NOTE | 2021-08-07 22:41 | XR ---
EXAMINATION TYPE: XR chest 1V portable DATE OF EXAM: 08/07/2021 COMPARISON: 12/12/2018 HISTORY: Pneumonia TECHNIQUE: Multiple view FINDINGS: There is no heart failure nor confluent pneumonic infiltrate. Costophrenic angles are fairl y clear. There is slight increased interstitial markings. There are chest leads. Bony thorax is intac t. IMPRESSION: Mild pulmonary fibrotic changes. There is improvement in the interstitial pulmonary densi ty compared to the old exam.
--- NOTE | 2021-08-07 22:43 | CT ---
EXAMINATION TYPE: CT brain wo con DATE OF EXAM: 08/07/2021 COMPARISON: 09/05/2019 HISTORY: ams CT DLP: 1261.4 mGycm Automated exposure control for dose reduction was used. Images obtained of the brain without contrast. There is hypodensity in the periventricular white so er. There is cerebral atrophy and enlargement of the ventricles. There is no mass effect or midline s hift. No sign of intracranial hemorrhage. Calvarium is intact. IMPRESSION: Cerebral atrophy and chronic small vessel ischemia. Hydrocephalus. No change.
[2021-08-07 22:58] LABS: INR 1.1 (<1.2); Partial Thromboplastin Time 26.3 sec (22.0-30.0); Prothrombin Time 11.6 sec (9.0-12.0)
[2021-08-07 23:05] LABS: Potassium 2.7 mmol/L (3.5-5.1)
[2021-08-07] MEDS ORDERED: POTASSIUM CHLORIDE ER 20 MEQ TAB.ER PO STA (23:21)
[2021-08-07 23:25] LABS: Budding Yeast,Urine Many /hpf; Mucus,Urine Many /hpf; Squamous Epithelial Cell,Urine 1806 /hpf (0-4)
[2021-08-07] MEDS ORDERED: POTASSIUM BICARBONATE/CIT AC 20 MEQ TABLET.EFF PO ONE (23:35)
[2021-08-07 23:37] LABS: Appearance,Urine Turbid (Clear); Color,Urine Light Yellow
[2021-08-07 23:39] LABS: RBC,Urine >182 /hpf (0-5); WBC,Urine >182 /hpf (0-5)
[2021-08-08] MEDS ORDERED: NALOXONE 0.4 MG/ML 1 ML VIAL IV PRN (00:40)
[2021-08-08] MEDS ORDERED: SODIUM CHLORIDE 0.9% 1,000 ML IV SCH (00:45)
[2021-08-08] MEDS ORDERED: cefTRIAXone IN SWFI 1,000 MG/10 ML SYRINGE IVP ONE (01:00)
[2021-08-08 02:40] LABS: Glucose,Whole Blood 343 mg/dL (75-99)
[2021-08-08] MEDS ORDERED: INSULIN ASPART (NovoLOG) 100 UNIT/ML VIAL SQ ONE (04:05)
[2021-08-08] MEDS: LEVOTHYROXINE 50 MCG TAB PO SCH (06:02)
[2021-08-08 06:45] LABS: African American GFR (CKD) 79 (>60 ml/min/1.73 sqM); Anion Gap 11 mmol/L; Blood Urea Nitrogen 15 mg/dL (7-17); Calcium 9.3 mg/dL (8.4-10.2); Carbon Dioxide 28 mmol/L (22-30); Chloride 105 mmol/L (98-107); Glucose 275 mg/dL (74-99); Magnesium 1.1 mg/dL (1.6-2.3); Non-African American GFR(CKD) 68 (>60 ml/min/1.73 sqM); Potassium 2.8 mmol/L (3.5-5.1); Sodium 144 mmol/L (137-145)
[2021-08-08 06:56] LABS: Glucose,Whole Blood 249 mg/dL (75-99)
[2021-08-08] MEDS ORDERED: Potassium Replacement Protocol 1 EACH MISC MISCELLANE PRN ×2 (07:06→08:34)
[2021-08-08] MEDS: ASPIRIN 81 MG PO SCH ×2 (07:19→20:48)
[2021-08-08] MEDS: metFORMIN 500 MG TAB PO SCH ×2 (07:19→17:10)
[2021-08-08] MEDS: METOPROLOL TARTRATE 25 MG TAB PO SCH (07:19)
[2021-08-08] MEDS: GABAPENTIN 300 MG CAP PO SCH ×2 (07:19→20:48)
[2021-08-08] MEDS: CHOLECALCIFEROL 25 MCG (1000 IU) TABLET PO SCH (07:20)
[2021-08-08] MEDS: PANTOPRAZOLE 40 MG TABLET PO SCH (07:20)
[2021-08-08] MEDS: ZINC SULFATE 220 MG CAP PO SCH (07:20)
[2021-08-08] MEDS: POTASSIUM CHLORIDE ER 20 MEQ TAB.ER PO SCH ×4 (07:21→20:48)
[2021-08-08] MEDS: INSULIN ASPART (NovoLOG) 100 UNIT/ML VIAL SQ SCH ×4 (07:21→20:48)
[2021-08-08] MEDS ORDERED: POTASSIUM CHLORIDE 20 MEQ in WATER FOR INJECTION 1 100ML.BAG IVPB SCH (09:00)
[2021-08-08] MEDS ORDERED: POTASSIUM CHLORIDE ER 20 MEQ TAB.ER PO STA (09:12)
[2021-08-08] MEDS ORDERED: Magnesium Replacement Protocol 1 EACH MISC MISCELLANE PRN (10:48)
[2021-08-08] MEDS: MAGNESIUM SULFATE-D5W PMX 1 GM in DEXTROSE/WATER 1 100ML.BAG IVPB SCH ×3 (11:28→14:41)
[2021-08-08 11:40] LABS: Glucose,Whole Blood 176 mg/dL (75-99)
--- NOTE | 2021-08-08 13:38 | HP ---
HISTORY AND PHYSICAL DATE OF SERVICE: 08/08/2021 CHIEF COMPLAINTS: Change in mental status. HISTORY OF PRESENT ILLNESS: This 71-year-old woman with a past history of dementia, diabetes, hyperlipidemia, was taken to [facility] with some change in mental status. The patient has significant dementia. Apparently according to the , the patient's baseline has changed. The patient found to have UTI. The patient being closely monitored. IV antibiotics initiated. Cultures are pending at this time. The patient is unable to provide a detailed history. Detailed history taken from discussion with staff and review of chart at this time. PAST MEDICAL HISTORY: History reviewed and include diabetes, dementia. HOME MEDICATIONS: Also reviewed and include Requip, Metformin. Dosing and the rest of medications also reviewed. ALLERGIES: None. Family, social history and review of systems could not be taken because of change in mental status. PHYSICAL EXAMINATION: Pulse is 96, blood pressure 151/74, respiration 17. HEENT: Conjunctivae normal. NECK: No JVD. CARDIOVASCULAR: S1, S2, muffled. No S3, no S4, RESPIRATORY: Diminished breath sounds at the bases. A few scattered rhonchi. ABDOMEN: Soft. LEGS are no edema. No swelling. NERVOUS SYSTEM: Diffusely weak. The right side is more weak and diffuse tremors also present. The patient unable to cooperate with full exam. SKIN: No ulcers, rashes or bleeding. JOINTS: No active deforming arthropathy. LYMPHATICS: No lymph nodes palpable in the neck, axillae or groin. LABS: Potassium 2.2 and UTI. ASSESSMENT: 1. Acute urinary tract infection. 2. Change in mental status, acute metabolic encephalopathy, dementia. 3. Hypokalemia. 4. Diabetes. 5. Hypertension. RECOMMENDATIONS AND DISCUSSION: I recommend to continue current management and symptomatic treatment. Resume home medications, broad-spectrum IV antibiotics. Monitor lytes closely. DVT prophylaxis. See orders for further details. Prognosis guarded. Further recommendations to follow. The patient is followed by Dr. King in the outpatient setting. MMODL / IJN: [id number] /
[2021-08-08] MEDS: 0.9% NACL WITH KCL 20 MEQ/L 1,000 ML IV SCH (14:41)
[2021-08-08 16:49] LABS: Glucose,Whole Blood 232 mg/dL (75-99)
[2021-08-08 20:39] LABS: Glucose,Whole Blood 289 mg/dL (75-99)
[2021-08-08] MEDS: ACETAMINOPHEN TAB 325 MG TAB PO PRN (23:01)
[2021-08-09] MEDS: 0.9% NACL WITH KCL 20 MEQ/L 1,000 ML IV SCH ×2 (03:05→17:26)
[2021-08-09] MEDS: LEVOTHYROXINE 50 MCG TAB PO SCH (05:43)
[2021-08-09 07:10] LABS: Glucose,Whole Blood 318 mg/dL (75-99)
[2021-08-09] MEDS: PANTOPRAZOLE 40 MG TABLET PO SCH (07:55)
[2021-08-09] MEDS: metFORMIN 500 MG TAB PO SCH ×2 (07:55→16:59)
[2021-08-09] MEDS: POTASSIUM CHLORIDE ER 20 MEQ TAB.ER PO SCH ×2 (07:56→20:00)
[2021-08-09] MEDS: GABAPENTIN 300 MG CAP PO SCH ×2 (07:56→20:01)
[2021-08-09] MEDS: CHOLECALCIFEROL 25 MCG (1000 IU) TABLET PO SCH (07:56)
[2021-08-09] MEDS: INSULIN ASPART (NovoLOG) 100 UNIT/ML VIAL SQ SCH ×4 (07:57→21:34)
[2021-08-09] MEDS: ZINC SULFATE 220 MG CAP PO SCH (07:57)
[2021-08-09] MEDS: METOPROLOL TARTRATE 25 MG TAB PO SCH (07:57)
[2021-08-09] MEDS: ASPIRIN 81 MG PO SCH ×2 (07:57→20:01)
[2021-08-09 09:24] LABS: African American GFR (CKD) 73.5 (60.0-200.0); Anion Gap 9.6 mmol/L (10.00-18.00); BUN/Creat Ratio 13.44 Ratio (12.00-20.00); Blood Urea Nitrogen 12.1 mg/dL (9.0-27.0); Calcium 9.5 mg/dL (8.7-10.3); Carbon Dioxide 25.4 mmol/L (20.0-27.5); Magnesium 2.1 mg/dL (1.5-2.4); Non-African American GFR(CKD) 63.4 (60.0-200.0); Potassium 4.5 mmol/L (3.5-5.5)
[2021-08-09 10:55] LABS: Basophils # (A) 0.03 X 10*3/uL (0.00-0.10); Basophils % (A) 0.3 %; Eosinophils # (A) 0.39 X 10*3/uL (0.04-0.35); Eosinophils % (A) 4.4 %; HCT 32.5 % (37.2-46.3); Immature Grans, Automated 0.3 %; Lymphocytes # (A) 2.11 X 10*3/uL (0.90-5.00); MCH 28.6 pg (27.0-32.0); MCHC 30.8 g/dL (32.0-37.0); MCV 92.9 fL (80.0-97.0); Mean Platelet Volume 13.2 fL (9.5-12.2); Monocytes # (A) 0.49 X 10*3/uL (0.20-1.00); Monocytes % (A) 5.6 %; NRBC Per 100 WBC 0 /100 WBCS (0.0-0.0); Neutrophils # (A) 5.75 X 10*3/uL (1.80-7.70); Neutrophils % (A) 65.4 %; Platelet Count 244 X 10*3/uL (140-440); RDW 14.4 % (11.5-14.5)
[2021-08-09] MEDS ORDERED: THIAMINE 100 MG TAB ONE (12:00)
[2021-08-09] MEDS ORDERED: MULTIVITAMINS, THERA 1 EACH TAB ONE (12:00)
[2021-08-09] MEDS ORDERED: FOLIC ACID 1 MG TAB ONE (12:00)
[2021-08-09] MEDS ORDERED: INSULIN ASPART (NovoLOG) 100 UNIT/ML VIAL SQ ONE (12:00)
[2021-08-09 14:51] LABS: Glucose,Whole Blood 262 mg/dL (75-99)
[2021-08-09] MEDS: FOLIC ACID 1 MG TAB PO SCH (15:12)
[2021-08-09] MEDS: THIAMINE 100 MG TAB PO SCH (15:12)
[2021-08-09] MEDS: MULTIVITAMINS, THERA 1 EACH TAB PO SCH (15:12)
[2021-08-09 16:50] LABS: Glucose,Whole Blood 286 mg/dL (75-99)
--- NOTE | 2021-08-09 19:44 | PN ---
PROGRESS NOTE DATE OF SERVICE: 08/09/2021 This 71-year-old woman who was admitted with change in mental status and possible UTI is being closely monitored. No chest pain. No palpitations. No fever. PHYSICAL EXAMINATION: Pulse 82, blood pressure 152/66, respiration 18. CHEST: Clear to auscultation. CARDIOVASCULAR: S1, S2 muffled. ABDOMEN: Soft. NERVOUS SYSTEM: Diffusely weak. LABS: Reviewed. Cultures are pending. Sugars are elevated. ASSESSMENT: 1. Acute urinary tract infection. 2. Change in mental status, acute metabolic encephalopathy. 3. Dementia. 4. Hypokalemia. 5. Diabetes mellitus, type 2. 6. Hypertension. RECOMMENDATIONS AND DISCUSSION: I recommend to continue current medications, continue with the monitoring, symptomatic treatment. I would recommend adding nighttime Lantus dosage. Continue with the antibiotics. Follow the cultures. Repeat labs. Prognosis guarded. Further recommendations to follow. MMODL / IJN: [id number] /
[2021-08-09] MEDS: ACETAMINOPHEN TAB 325 MG TAB PO PRN (19:47)
[2021-08-09] MEDS: INSULIN DETEMIR (LEVEMIR) 100 UNIT/ML SYR SQ SCH (21:34)
[2021-08-10] MEDS: 0.9% NACL WITH KCL 20 MEQ/L 1,000 ML IV SCH ×2 (04:22→20:10)
[2021-08-10] MEDS: LEVOTHYROXINE 50 MCG TAB PO SCH (06:01)
[2021-08-10 07:05] LABS: Glucose,Whole Blood 90 mg/dL (75-99)
[2021-08-10] MEDS: INSULIN ASPART (NovoLOG) 100 UNIT/ML VIAL SQ SCH ×4 (07:06→20:46)
[2021-08-10] MEDS: ZINC SULFATE 220 MG CAP PO SCH (07:35)
[2021-08-10] MEDS: metFORMIN 500 MG TAB PO SCH ×3 (07:35→16:46)
[2021-08-10] MEDS: ASPIRIN 81 MG PO SCH ×2 (07:35→20:10)
[2021-08-10] MEDS: POTASSIUM CHLORIDE ER 20 MEQ TAB.ER PO SCH ×2 (07:36→20:10)
[2021-08-10] MEDS: METOPROLOL TARTRATE 25 MG TAB PO SCH (07:36)
[2021-08-10] MEDS: PANTOPRAZOLE 40 MG TABLET PO SCH (07:36)
[2021-08-10] MEDS: CHOLECALCIFEROL 25 MCG (1000 IU) TABLET PO SCH (07:36)
[2021-08-10] MEDS: GABAPENTIN 300 MG CAP PO SCH ×2 (07:36→20:10)
[2021-08-10 11:30] LABS: Glucose,Whole Blood 122 mg/dL (75-99)
[2021-08-10] MEDS: MULTIVITAMINS, THERA 1 EACH TAB PO SCH (11:33)
[2021-08-10] MEDS: FOLIC ACID 1 MG TAB PO SCH (11:33)
[2021-08-10] MEDS: THIAMINE 100 MG TAB PO SCH (11:33)
[2021-08-10 12:14] LABS: African American GFR (CKD) 76.3 (60.0-200.0); Albumin 3.3 g/dL (3.8-4.9); Albumin/Globulin Ratio 1.59 (1.60-3.17); Anion Gap 9.7 mmol/L (10.00-18.00); BUN/Creat Ratio 10.33 Ratio (12.00-20.00); Calcium 9.6 mg/dL (8.7-10.3); Carbon Dioxide 24.9 mmol/L (20.0-27.5); Globulin 2.1 g/dL (1.6-3.3); Non-African American GFR(CKD) 65.8 (60.0-200.0); Potassium 4.6 mmol/L (3.5-5.5); Total Bilirubin 0.2 mg/dL (0.30-1.20); Total Protein 5.3 g/dL (6.2-8.2)
[2021-08-10 12:19] LABS: Basophils # (A) 0.05 X 10*3/uL (0.00-0.10); Basophils % (A) 0.6 %; Eosinophils # (A) 0.58 X 10*3/uL (0.04-0.35); Eosinophils % (A) 6.7 %; HCT 32.7 % (37.2-46.3); HGB 9.9 g/dL (12.0-15.0); Immature Grans, Automated 0.3 %; Lymphocytes # (A) 2.35 X 10*3/uL (0.90-5.00); Lymphocytes % (A) 27.2 %; MCH 28.3 pg (27.0-32.0); MCHC 30.3 g/dL (32.0-37.0); MCV 93.4 fL (80.0-97.0); Mean Platelet Volume 13.4 fL (9.5-12.2); Monocytes # (A) 0.55 X 10*3/uL (0.20-1.00); Monocytes % (A) 6.4 %; NRBC Per 100 WBC 0 /100 WBCS (0.0-0.0); Neutrophils # (A) 5.07 X 10*3/uL (1.80-7.70); Neutrophils % (A) 58.8 %; Platelet Count 234 X 10*3/uL (140-440); WBC 8.63 X 10*3/uL (4.50-10.00)
[2021-08-10 16:28] LABS: Glucose,Whole Blood 202 mg/dL (75-99)
[2021-08-10] MEDS: ACETAMINOPHEN TAB 325 MG TAB PO PRN (19:35)
[2021-08-10 20:29] LABS: Glucose,Whole Blood 206 mg/dL (75-99)
[2021-08-10] MEDS: INSULIN DETEMIR (LEVEMIR) 100 UNIT/ML SYR SQ SCH (20:46)
[2021-08-11] MEDS: LEVOTHYROXINE 50 MCG TAB PO SCH (05:36)
[2021-08-11 07:06] LABS: Glucose,Whole Blood 288 mg/dL (75-99)
[2021-08-11] MEDS: INSULIN ASPART (NovoLOG) 100 UNIT/ML VIAL SQ SCH ×4 (07:16→20:47)
[2021-08-11] MEDS: POTASSIUM CHLORIDE ER 20 MEQ TAB.ER PO SCH ×3 (07:17→20:49)
[2021-08-11] MEDS: METOPROLOL TARTRATE 25 MG TAB PO SCH (07:17)
[2021-08-11] MEDS: metFORMIN 500 MG TAB PO SCH ×2 (07:17→16:45)
[2021-08-11] MEDS: GABAPENTIN 300 MG CAP PO SCH ×3 (07:17→20:49)
[2021-08-11] MEDS: PANTOPRAZOLE 40 MG TABLET PO SCH (07:18)
[2021-08-11] MEDS: CHOLECALCIFEROL 25 MCG (1000 IU) TABLET PO SCH (07:18)
[2021-08-11] MEDS: ASPIRIN 81 MG PO SCH ×3 (07:18→20:49)
[2021-08-11] MEDS: ZINC SULFATE 220 MG CAP PO SCH (07:18)
[2021-08-11] MEDS: 0.9% NACL WITH KCL 20 MEQ/L 1,000 ML IV SCH ×2 (07:18→23:18)
[2021-08-11 09:41] LABS: Basophils # (A) 0.05 X 10*3/uL (0.00-0.10); Basophils % (A) 0.4 %; Eosinophils # (A) 0.52 X 10*3/uL (0.04-0.35); Eosinophils % (A) 4.6 %; HCT 32.1 % (37.2-46.3); HGB 9.9 g/dL (12.0-15.0); Immature Grans, Automated 0.3 %; Lymphocytes # (A) 1.57 X 10*3/uL (0.90-5.00); Lymphocytes % (A) 13.8 %; MCHC 30.8 g/dL (32.0-37.0); MCV 90.9 fL (80.0-97.0); Mean Platelet Volume 13.3 fL (9.5-12.2); Monocytes # (A) 0.68 X 10*3/uL (0.20-1.00); NRBC Per 100 WBC 0 /100 WBCS (0.0-0.0); Neutrophils # (A) 8.56 X 10*3/uL (1.80-7.70); Neutrophils % (A) 74.9 %; Platelet Count 219 X 10*3/uL (140-440); RBC 3.53 X 10*6/uL (4.10-5.20); RDW 13.9 % (11.5-14.5); WBC 11.41 X 10*3/uL (4.50-10.00)
[2021-08-11 09:57] LABS: African American GFR (CKD) 73.5 (60.0-200.0); Anion Gap 9.5 mmol/L (10.00-18.00); BUN/Creat Ratio 11.78 Ratio (12.00-20.00); Blood Urea Nitrogen 10.6 mg/dL (9.0-27.0); Calcium 9.5 mg/dL (8.7-10.3); Carbon Dioxide 23.5 mmol/L (20.0-27.5); Non-African American GFR(CKD) 63.4 (60.0-200.0); Potassium 5.2 mmol/L (3.5-5.5)
[2021-08-11 11:49] LABS: Glucose,Whole Blood 170 mg/dL (75-99)
[2021-08-11] MEDS: FOLIC ACID 1 MG TAB PO SCH (12:22)
[2021-08-11] MEDS: MULTIVITAMINS, THERA 1 EACH TAB PO SCH (12:22)
[2021-08-11] MEDS: THIAMINE 100 MG TAB PO SCH (12:22)
[2021-08-11 16:48] LABS: Glucose,Whole Blood 202 mg/dL (75-99)
[2021-08-11 20:27] LABS: Glucose,Whole Blood 165 mg/dL (75-99)
[2021-08-11] MEDS: INSULIN DETEMIR (LEVEMIR) 100 UNIT/ML SYR SQ SCH (20:47)
[2021-08-12] MEDS: LEVOTHYROXINE 50 MCG TAB PO SCH (05:38)
[2021-08-12] MEDS: 0.9% NACL WITH KCL 20 MEQ/L 1,000 ML IV SCH ×2 (05:46→20:54)
[2021-08-12 06:46] LABS: Glucose,Whole Blood 97 mg/dL (75-99)
[2021-08-12] MEDS: INSULIN ASPART (NovoLOG) 100 UNIT/ML VIAL SQ SCH ×4 (07:07→20:54)
[2021-08-12] MEDS: metFORMIN 500 MG TAB PO SCH ×2 (07:08→16:47)
[2021-08-12] MEDS: ZINC SULFATE 220 MG CAP PO SCH (08:25)
[2021-08-12] MEDS: CHOLECALCIFEROL 25 MCG (1000 IU) TABLET PO SCH (08:25)
[2021-08-12] MEDS: GABAPENTIN 300 MG CAP PO SCH ×2 (08:25→21:06)
[2021-08-12] MEDS: POTASSIUM CHLORIDE ER 20 MEQ TAB.ER PO SCH ×2 (08:25→21:06)
[2021-08-12] MEDS: METOPROLOL TARTRATE 25 MG TAB PO SCH (08:25)
[2021-08-12] MEDS: ASPIRIN 81 MG PO SCH ×2 (08:25→21:06)
[2021-08-12] MEDS: PANTOPRAZOLE 40 MG TABLET PO SCH (08:25)
[2021-08-12 11:14] LABS: Basophils # (A) 0.06 X 10*3/uL (0.00-0.10); Basophils % (A) 0.7 %; Eosinophils # (A) 0.51 X 10*3/uL (0.04-0.35); Eosinophils % (A) 6.1 %; HCT 37.1 % (37.2-46.3); HGB 11.7 g/dL (12.0-15.0); Immature Grans, Automated 0.2 %; Lymphocytes # (A) 1.74 X 10*3/uL (0.90-5.00); Lymphocytes % (A) 20.7 %; MCH 28.7 pg (27.0-32.0); MCHC 31.5 g/dL (32.0-37.0); MCV 90.9 fL (80.0-97.0); Mean Platelet Volume 13.6 fL (9.5-12.2); Monocytes # (A) 0.72 X 10*3/uL (0.20-1.00); Monocytes % (A) 8.6 %; NRBC Per 100 WBC 0 /100 WBCS (0.0-0.0); Neutrophils # (A) 5.36 X 10*3/uL (1.80-7.70); Neutrophils % (A) 63.7 %; Platelet Count 222 X 10*3/uL (140-440); RBC 4.08 X 10*6/uL (4.10-5.20); WBC 8.41 X 10*3/uL (4.50-10.00)
[2021-08-12] MEDS: FOLIC ACID 1 MG TAB PO SCH (11:16)
[2021-08-12] MEDS: THIAMINE 100 MG TAB PO SCH (11:16)
[2021-08-12] MEDS: MULTIVITAMINS, THERA 1 EACH TAB PO SCH (11:16)
[2021-08-12 11:29] LABS: African American GFR (CKD) 75.5 (60.0-200.0); Anion Gap 16.8 mmol/L (10.00-18.00); BUN/Creat Ratio 8.63 Ratio (12.00-20.00); Blood Urea Nitrogen 7.6 mg/dL (9.0-27.0); Calcium 10.2 mg/dL (8.7-10.3); Carbon Dioxide 24.3 mmol/L (20.0-27.5); Non-African American GFR(CKD) 65.2 (60.0-200.0)
[2021-08-12 11:30] LABS: Glucose,Whole Blood 169 mg/dL (75-99)
[2021-08-12 16:37] LABS: Glucose,Whole Blood 183 mg/dL (75-99)
[2021-08-12 18:04] VITALS: BMI 21.9
[2021-08-12 20:28] LABS: Glucose,Whole Blood 192 mg/dL (75-99)
[2021-08-12] MEDS: INSULIN DETEMIR (LEVEMIR) 100 UNIT/ML SYR SQ SCH (20:55)
--- NOTE | 2021-08-13 00:34 | P.PN ---
Subjective Progress Note Date: 08/10/21 Patient is a 71-year-old female was admitted to the hospital due to altered mental status and possible urinary tract infection. Continued on antibiotics. 08/10/2021 Patient is currently resting in the bed. Awake alert but not oriented patient is having minimal oral intake. No complaints of chest pain or shortness of breath. No nausea or vomiting or diarrhea. Patient has been afebrile. Discussed with her at bedside in detail. Current medications reviewed. Objective - Vital Signs Vital signs: Vital Signs Temp 97.9 F 08/10/21 20:00 Pulse 83 08/10/21 20:00 Resp 17 08/10/21 20:00 BP 144/81 08/10/21 20:00 Pulse Ox 97 08/10/21 20:00 FiO2 Intake & Output 08/10/21 08/10/21 08/11/21 06:59 18:59 06:59 Intake Total 1220 406 Output Total 350 300 Balance 870 106 Intake: Intake, IV Titration 1000 Amount 0.9% NaCl with KCl 20 Meq 900 /l 1,000 ml @ 75 mls/hr IV .[id number] [facility] Rx#: [id number] cefTRIAXone 1 gm In 100 Sodium Chloride 0.9% 50 ml @ 100 mls/hr IVPB Q24H [facility] Rx#:[id number] Oral 220 406 Output: Urine 350 300 Other: Voiding Method External Catheter External Catheter # Bowel Movements 0 0 - Exam PHYSICAL EXAMINATION: Patient is lying in the bed comfortably, no acute distress, awake alert but not oriented.. HEENT: Normocephalic. Neck is supple. Pupils reactive. Nostrils clear. Oral cavity is moist. Neck reveals no JVD, carotid bruits, or thyromegaly. CHEST EXAMINATION: Trachea is central. Symmetrical expansion. Lung resendiz clear to auscultation and percussion. CARDIAC: Normal S1, S2 with no gallops. No murmurs ABDOMEN: Soft. Bowel sounds normal. No organomegaly. No abdominal bruits. Extremities: reveal no edema. No clubbing or cyanosis Neurologically awake, alert, dementia, well-coordinated movements while on bed. No gross focal deficits noted Skin: No rash or skin lesions. Psychiatric: Cooperative. Could not be assessed musculoskeletal: No joint swelling or deformity. - Labs CBC & Chem 7: 08/12/21 07:32 08/12/21 07:32 Labs: Abnormal Lab Results - Last 24 Hours (Table) 08/10/21 08/10/21 08/10/21 Range/Units 07:04 07:04 11:29 RBC 3.50 L (4.10-5.20) X 10*6/uL Hgb 9.9 L (12.0-15.0) g/dL Hct 32.7 L (37.2-46.3) % MCHC 30.3 L (32.0-37.0) g/dL MPV 13.4 H (9.5-12.2) fL Eosinophils # 0.58 H (0.04-0.35) X 10*3/uL Anion Gap 9.70 L (10.00-18.00) mmol/L BUN/Creatinine Ratio 10.33 L (12.00-20.00) Ratio POC Glucose (mg/dL) 122 H (75-99) mg/dL Total Bilirubin 0.20 L (0.30-1.20) mg/dL AST 12 L (13-35) U/L Total Protein 5.3 L (6.2-8.2) g/dL Albumin 3.3 L (3.8-4.9) g/dL Albumin/Globulin Ratio 1.59 L (1.60-3.17) g/dL 08/10/21 08/10/21 Range/Units 16:26 20:27 RBC (4.10-5.20) X 10*6/uL Hgb (12.0-15.0) g/dL Hct (37.2-46.3) % MCHC (32.0-37.0) g/dL MPV (9.5-12.2) fL Eosinophils # (0.04-0.35) X 10*3/uL Anion Gap (10.00-18.00) mmol/L BUN/Creatinine Ratio (12.00-20.00) Ratio POC Glucose (mg/dL) 202 H 206 H (75-99) mg/dL Total Bilirubin (0.30-1.20) mg/dL AST (13-35) U/L Total Protein (6.2-8.2) g/dL Albumin (3.8-4.9) g/dL Albumin/Globulin Ratio (1.60-3.17) g/dL Microbiology - Last 24 Hours (Table) 08/07/21 22:15 Urine Culture - Final Urine,Catheterized 08/08/21 12:39 Blood Culture - Preliminary Blood No Growth after 48 hours Assessment and Plan Assessment: Acute urinary tract infection Altered mental status with possible metabolic encephalopathy due to infection Dementia Hypokalemia Diabetes type 2 Hypertension DVT prophylaxis Plan: Patient will be continued on antibiotics in the form of ceftriaxone follow-up you final urine culture report. Continue with insulin regimen and titrate dose as needed. IV hydration and increase oral intake. Follow-up closely.
--- NOTE | 2021-08-13 00:36 | P.PN ---
Subjective Progress Note Date: 08/11/21 Patient is a 71-year-old female was admitted to the hospital due to altered mental status and possible urinary tract infection. Continued on antibiotics. 08/10/2021 Patient is currently resting in the bed. Awake alert but not oriented patient is having minimal oral intake. No complaints of chest pain or shortness of breath. No nausea or vomiting or diarrhea. Patient has been afebrile. Discussed with her at bedside in detail. 08/11/2021 Patient is currently resting in the bed. Mental status remains the same. Patient has been afebrile. No nausea vomiting or diarrhea. Increased with oral intake. Blood sugar is elevated but controlled compared to yesterday. No complaints of chest pain or shortness of breath. No cough or sputum production. Urine culture showed normal tiarra. Current medications reviewed. Objective - Vital Signs Vital signs: Vital Signs Temp 98.1 F 08/11/21 19:27 Pulse 73 08/11/21 19:27 Resp 17 08/11/21 19:27 BP 177/81 08/11/21 19:27 Pulse Ox 96 08/11/21 19:27 FiO2 Intake & Output 08/11/21 08/11/21 08/12/21 06:59 18:59 06:59 Intake Total 120 Output Total 1999 1340 Balance -1999 -1220 Intake: Oral 120 Output: Urine 1999 1340 Other: Voiding Method External Catheter External Catheter External Catheter # Bowel Movements 0 1 - Exam PHYSICAL EXAMINATION: Patient is lying in the bed comfortably, no acute distress, awake alert but not oriented.. HEENT: Normocephalic. Neck is supple. Pupils reactive. Nostrils clear. Oral cavity is moist. Neck reveals no JVD, carotid bruits, or thyromegaly. CHEST EXAMINATION: Trachea is central. Symmetrical expansion. Lung resendiz clear to auscultation and percussion. CARDIAC: Normal S1, S2 with no gallops. No murmurs ABDOMEN: Soft. Bowel sounds normal. No organomegaly. No abdominal bruits. Extremities: reveal no edema. No clubbing or cyanosis Neurologically awake, alert, dementia, well-coordinated movements while on bed. No gross focal deficits noted Skin: No rash or skin lesions. Psychiatric: Cooperative. Could not be assessed musculoskeletal: No joint swelling or deformity. - Labs CBC & Chem 7: 08/12/21 07:32 08/12/21 07:32 Labs: Abnormal Lab Results - Last 24 Hours (Table) 08/11/21 08/11/21 08/11/21 Range/Units 06:06 06:06 07:04 WBC 11.41 H (4.50-10.00) X 10*3/uL RBC 3.53 L (4.10-5.20) X 10*6/uL Hgb 9.9 L (12.0-15.0) g/dL Hct 32.1 L (37.2-46.3) % MCHC 30.8 L (32.0-37.0) g/dL MPV 13.3 H (9.5-12.2) fL Neutrophils # 8.56 H (1.80-7.70) X 10*3/uL Eosinophils # 0.52 H (0.04-0.35) X 10*3/uL Anion Gap 9.50 L (10.00-18.00) mmol/L BUN/Creatinine Ratio 11.78 L (12.00-20.00) Ratio Glucose 313 H (70-110) mg/dL POC Glucose (mg/dL) 288 H (75-99) mg/dL 08/11/21 08/11/21 08/11/21 Range/Units 11:47 16:46 20:27 WBC (4.50-10.00) X 10*3/uL RBC (4.10-5.20) X 10*6/uL Hgb (12.0-15.0) g/dL Hct (37.2-46.3) % MCHC (32.0-37.0) g/dL MPV (9.5-12.2) fL Neutrophils # (1.80-7.70) X 10*3/uL Eosinophils # (0.04-0.35) X 10*3/uL Anion Gap (10.00-18.00) mmol/L BUN/Creatinine Ratio (12.00-20.00) Ratio Glucose (70-110) mg/dL POC Glucose (mg/dL) 170 H 202 H 165 H (75-99) mg/dL Microbiology - Last 24 Hours (Table) 08/08/21 12:39 Blood Culture - Preliminary Blood No Growth after 72 hours Assessment and Plan Assessment: Acute urinary tract infection Altered mental status with possible metabolic encephalopathy due to infection Dementia Hypokalemia Diabetes type 2 Hypertension DVT prophylaxis Plan: Patient will be continued on antibiotics in the form of ceftriaxone .final urine culture showed nornal tiarra. Continue with insulin regimen and titrate dose as needed. IV hydration and increase oral intake. Follow-up closely.
--- NOTE | 2021-08-13 00:37 | P.PN ---
Subjective Progress Note Date: 08/12/21 Patient is a 71-year-old female was admitted to the hospital due to altered mental status and possible urinary tract infection. Continued on antibiotics. 08/10/2021 Patient is currently resting in the bed. Awake alert but not oriented patient is having minimal oral intake. No complaints of chest pain or shortness of breath. No nausea or vomiting or diarrhea. Patient has been afebrile. Discussed with her at bedside in detail. 08/11/2021 Patient is currently resting in the bed. Mental status remains the same. Patient has been afebrile. No nausea vomiting or diarrhea. Increased with oral intake. Blood sugar is elevated but controlled compared to yesterday. No complaints of chest pain or shortness of breath. No cough or sputum production. Urine culture showed normal tiarra. 08/12/2021 Patient is currently resting in bed. Awake alert but not oriented. Could not provide any history. Patient's is at bedside. Otherwise patient is afebrile. No nausea or vomiting. No other acute overnight issues. Urine culture showed normal tiarra. Remains on antibiotics and off ceftriaxone. Patient does have very minimal oral intake. PT OT will be consulted and possible rehab transfer. Current medications reviewed. Objective - Vital Signs Vital signs: Vital Signs Temp 98.2 F 08/12/21 19:21 Pulse 69 08/12/21 19:21 Resp 19 08/12/21 19:21 BP 163/93 08/12/21 19:21 Pulse Ox 95 08/12/21 19:21 FiO2 Intake & Output 08/12/21 08/12/21 08/13/21 06:59 18:59 06:59 Output Total 1200 Balance -1200 Weight 58 kg Output: Urine 1200 Other: Voiding Method External Catheter External Catheter External Catheter - Exam PHYSICAL EXAMINATION: Patient is lying in the bed comfortably, no acute distress, awake alert but not oriented.. HEENT: Normocephalic. Neck is supple. Pupils reactive. Nostrils clear. Oral ca vity is moist. Neck reveals no JVD, carotid bruits, or thyromegaly. CHEST EXAMINATION: Trachea is central. Symmetrical expansion. Lung resendiz clear to auscultation and percussion. CARDIAC: Normal S1, S2 with no gallops. No murmurs ABDOMEN: Soft. Bowel sounds normal. No organomegaly. No abdominal bruits. Extremities: reveal no edema. No clubbing or cyanosis Neurologically awake, alert, dementia, well-coordinated movements while on bed. No gross focal deficits noted Skin: No rash or skin lesions. Psychiatric: Cooperative. Could not be assessed musculoskeletal: No joint swelling or deformity. - Labs CBC & Chem 7: 08/12/21 07:32 08/12/21 07:32 Labs: Abnormal Lab Results - Last 24 Hours (Table) 08/12/21 08/12/21 08/12/21 Range/Units 07:32 07:32 11:28 RBC 4.08 L (4.10-5.20) X 10*6/uL Hgb 11.7 L (12.0-15.0) g/dL Hct 37.1 L (37.2-46.3) % MCHC 31.5 L (32.0-37.0) g/dL MPV 13.6 H (9.5-12.2) fL Eosinophils # 0.51 H (0.04-0.35) X 10*3/uL BUN 7.6 L (9.0-27.0) mg/dL BUN/Creatinine Ratio 8.63 L (12.00-20.00) Ratio POC Glucose (mg/dL) 169 H (75-99) mg/dL 08/12/21 08/12/21 Range/Units 16:36 20:27 RBC (4.10-5.20) X 10*6/uL Hgb (12.0-15.0) g/dL Hct (37.2-46.3) % MCHC (32.0-37.0) g/dL MPV (9.5-12.2) fL Eosinophils # (0.04-0.35) X 10*3/uL BUN (9.0-27.0) mg/dL BUN/Creatinine Ratio (12.00-20.00) Ratio POC Glucose (mg/dL) 183 H 192 H (75-99) mg/dL Microbiology - Last 24 Hours (Table) 08/08/21 12:39 Blood Culture - Preliminary Blood No Growth after 96 hours Assessment and Plan Assessment: Acute urinary tract infection Altered mental status with possible metabolic encephalopathy due to infection Dementia Hypokalemia Diabetes type 2 Hypertension Hypothyroidism DVT prophylaxis Plan: Patient will be continued on antibiotics in the form of ceftriaxone .final urine culture showed nornal tiarra. IVF Continue with insulin regimen and titrate dose as needed. IV hydration and increase oral intake. Follow-up closely. Appetite stimulant was added. Nutrition services on board. PT/OT
[2021-08-13] MEDS: LEVOTHYROXINE 50 MCG TAB PO SCH (05:51)
[2021-08-13 07:01] LABS: Glucose,Whole Blood 123 mg/dL (75-99)
[2021-08-13] MEDS: INSULIN ASPART (NovoLOG) 100 UNIT/ML VIAL SQ SCH ×4 (07:55→21:28)
[2021-08-13] MEDS: CHOLECALCIFEROL 25 MCG (1000 IU) TABLET PO SCH (07:56)
[2021-08-13] MEDS: ASPIRIN 81 MG PO SCH ×2 (07:56→21:39)
[2021-08-13] MEDS: metFORMIN 500 MG TAB PO SCH ×2 (07:56→16:19)
[2021-08-13] MEDS: GABAPENTIN 300 MG CAP PO SCH ×2 (07:57→21:39)
[2021-08-13] MEDS: POTASSIUM CHLORIDE ER 20 MEQ TAB.ER PO SCH ×2 (07:58→21:39)
[2021-08-13] MEDS: ZINC SULFATE 220 MG CAP PO SCH (07:58)
[2021-08-13] MEDS: PANTOPRAZOLE 40 MG TABLET PO SCH (07:59)
[2021-08-13] MEDS: METOPROLOL TARTRATE 25 MG TAB PO SCH (07:59)
[2021-08-13] MEDS: FOLIC ACID 1 MG TAB PO SCH (11:18)
[2021-08-13] MEDS: MULTIVITAMINS, THERA 1 EACH TAB PO SCH (11:19)
[2021-08-13] MEDS: THIAMINE 100 MG TAB PO SCH (11:19)
[2021-08-13 11:25] LABS: Glucose,Whole Blood 145 mg/dL (75-99)
[2021-08-13] MEDS: 0.9% NACL WITH KCL 20 MEQ/L 1,000 ML IV SCH (11:36)
[2021-08-13] MEDS: SODIUM CHLORIDE 0.9% 1,000 ML with THIAMINE 100 MG, FOLIC ACID 1 MG IV ONE ×3 (12:20)
[2021-08-13] MEDS: hydrALAZINE HCL 20 MG/ML 1 ML VIAL IVP PRN (12:25)
[2021-08-13 12:40] LABS: African American GFR (CKD) 84.1 (60.0-200.0); Blood Urea Nitrogen 9.1 mg/dL (9.0-27.0); Calcium 9.8 mg/dL (8.7-10.3); Chloride 104 mmol/L (96-109); Glucose 128 mg/dL (70-110); Non-African American GFR(CKD) 72.6 (60.0-200.0); Potassium 4.9 mmol/L (3.5-5.5); Sodium 139 mmol/L (135-145)
[2021-08-13 12:41] LABS: Basophils # (A) 0.06 X 10*3/uL (0.00-0.10); Basophils % (A) 0.7 %; Eosinophils # (A) 0.43 X 10*3/uL (0.04-0.35); HCT 33.9 % (37.2-46.3); HGB 10.7 g/dL (12.0-15.0); Immature Grans, Automated 0.3 %; Lymphocytes # (A) 2.06 X 10*3/uL (0.90-5.00); Lymphocytes % (A) 23.9 %; MCH 28.2 pg (27.0-32.0); MCHC 31.6 g/dL (32.0-37.0); MCV 89.4 fL (80.0-97.0); Mean Platelet Volume 13.4 fL (9.5-12.2); NRBC Per 100 WBC 0 /100 WBCS (0.0-0.0); Neutrophils # (A) 5.44 X 10*3/uL (1.80-7.70); Neutrophils % (A) 63.1 %; Platelet Count 273 X 10*3/uL (140-440); RBC 3.79 X 10*6/uL (4.10-5.20); RDW 13.9 % (11.5-14.5); WBC 8.62 X 10*3/uL (4.50-10.00)
[2021-08-13] MEDS: amLODIPine 10 MG TAB PO SCH (13:50)
--- NOTE | 2021-08-13 14:48 | PN ---
PROGRESS NOTE DATE OF SERVICE: 08/13/2021 This 71-year-old woman who was admitted with change in mental status and UTI also had baseline dementia. The patient apparently has very poor p.o. intake at this time. Cultures are negative. No chest pain. No palpitation. PHYSICAL EXAMINATION: Patient is conscious, confused. Pulse 104, blood pressure 119/80, respiration 18. CHEST: A few scattered rhonchi. ABDOMEN: Soft. NERVOUS SYSTEM: Moves all 4 limbs. LABS: Reviewed. ASSESSMENT: 1. Acute urinary tract infection. 2. Change in mental status and possible metabolic encephalopathy. 3. Dementia. 4. Hypokalemia. 5. Diabetes mellitus, type 2. 6. Hypertension. 7. Hypothyroidism. RECOMMENDATIONS AND DISCUSSION: I recommend to continue current medications, continue with the monitoring, symptomatic treatment. Repeat labs. See orders for further details. Guarded prognosis. Discussed with the patient's . Further recommendations to follow. MMODL / IJN: [id number] /
[2021-08-13 16:37] LABS: Glucose,Whole Blood 163 mg/dL (75-99)
[2021-08-13 20:10] LABS: Glucose,Whole Blood 205 mg/dL (75-99)
[2021-08-13] MEDS: INSULIN DETEMIR (LEVEMIR) 100 UNIT/ML SYR SQ SCH (21:28)
[2021-08-14] MEDS: SODIUM CHLORIDE 0.9% 1,000 ML with THIAMINE 100 MG, FOLIC ACID 1 MG IV ONE ×3 (01:44)
[2021-08-14] MEDS: LEVOTHYROXINE 50 MCG TAB PO SCH (05:35)
[2021-08-14 06:47] LABS: Glucose,Whole Blood 123 mg/dL (75-99)
[2021-08-14] MEDS: INSULIN ASPART (NovoLOG) 100 UNIT/ML VIAL SQ SCH ×4 (07:06→21:15)
[2021-08-14] MEDS: metFORMIN 500 MG TAB PO SCH ×2 (07:06→16:36)
[2021-08-14] MEDS: hydrALAZINE HCL 20 MG/ML 1 ML VIAL IVP PRN (08:32)
[2021-08-14] MEDS: ZINC SULFATE 220 MG CAP PO SCH (08:40)
[2021-08-14] MEDS: PANTOPRAZOLE 40 MG TABLET PO SCH (08:40)
[2021-08-14] MEDS: ASPIRIN 81 MG PO SCH ×2 (08:40→19:47)
[2021-08-14] MEDS: POTASSIUM CHLORIDE ER 20 MEQ TAB.ER PO SCH ×2 (08:40→19:47)
[2021-08-14] MEDS: amLODIPine 10 MG TAB PO SCH (08:40)
[2021-08-14] MEDS: CHOLECALCIFEROL 25 MCG (1000 IU) TABLET PO SCH (08:40)
[2021-08-14] MEDS: METOPROLOL TARTRATE 25 MG TAB PO SCH (08:40)
[2021-08-14] MEDS: MEGESTROL 400 MG/10 ML CUP PO SCH (08:40)
[2021-08-14] MEDS: GABAPENTIN 300 MG CAP PO SCH ×2 (08:40→19:47)
[2021-08-14 09:20] LABS: Basophils # (A) 0.07 X 10*3/uL (0.00-0.10); Basophils % (A) 0.7 %; Eosinophils # (A) 0.39 X 10*3/uL (0.04-0.35); Eosinophils % (A) 3.7 %; HCT 34.9 % (37.2-46.3); Immature Grans, Automated 0.3 %; Lymphocytes # (A) 2.02 X 10*3/uL (0.90-5.00); Lymphocytes % (A) 19.3 %; MCH 28.3 pg (27.0-32.0); MCHC 31.5 g/dL (32.0-37.0); MCV 89.7 fL (80.0-97.0); Mean Platelet Volume 13.3 fL (9.5-12.2); Monocytes # (A) 0.82 X 10*3/uL (0.20-1.00); Monocytes % (A) 7.8 %; NRBC Per 100 WBC 0 /100 WBCS (0.0-0.0); Neutrophils # (A) 7.16 X 10*3/uL (1.80-7.70); Neutrophils % (A) 68.2 %; Platelet Count 297 X 10*3/uL (140-440); RBC 3.89 X 10*6/uL (4.10-5.20); WBC 10.49 X 10*3/uL (4.50-10.00)
[2021-08-14 09:28] LABS: African American GFR (CKD) 73.5 (60.0-200.0); Anion Gap 14.1 mmol/L (10.00-18.00); BUN/Creat Ratio 11.56 Ratio (12.00-20.00); Blood Urea Nitrogen 10.4 mg/dL (9.0-27.0); Calcium 9.8 mg/dL (8.7-10.3); Carbon Dioxide 19.9 mmol/L (20.0-27.5); Non-African American GFR(CKD) 63.4 (60.0-200.0); Potassium 4.4 mmol/L (3.5-5.5)
[2021-08-14 11:02] LABS: Glucose,Whole Blood 149 mg/dL (75-99)
[2021-08-14] MEDS: FOLIC ACID 1 MG TAB PO SCH (11:53)
[2021-08-14] MEDS: THIAMINE 100 MG TAB PO SCH (11:53)
[2021-08-14] MEDS: MULTIVITAMINS, THERA 1 EACH TAB PO SCH (11:53)
[2021-08-14 16:31] LABS: Glucose,Whole Blood 122 mg/dL (75-99)
--- NOTE | 2021-08-14 17:39 | P.PN ---
Progress Note - Text Progress Note Date: 08/14/21 Patient is a 71-year-old female was admitted to the hospital due to altered mental status and possible urinary tract infection. Continued on antibiotics. 08/10/2021 Patient is currently resting in the bed. Awake alert but not oriented patient is having minimal oral intake. No complaints of chest pain or shortness of breath. No nausea or vomiting or diarrhea. Patient has been afebrile. Discussed with her at bedside in detail. 08/11/2021 Patient is currently resting in the bed. Mental status remains the same. Patient has been afebrile. No nausea vomiting or diarrhea. Increased with oral intake. Blood sugar is elevated but controlled compared to yesterday. No complaints of chest pain or shortness of breath. No cough or sputum production. Urine culture showed normal tiarra. 08/12/2021 Patient is currently resting in bed. Awake alert but not oriented. Could not provide any history. Patient's is at bedside. Otherwise patient is afebrile. No nausea or vomiting. No other acute overnight issues. Urine culture showed normal tiarra. Remains on antibiotics and off ceftriaxone. Patient does have very minimal oral intake. PT OT will be consulted and possible rehab transfer. August 14: I resumed care of patient today. at the bedside. Had a very lengthy discussion with the patient . Patient is gradually been declining at home for a while. Not even able to recognize family at home. takes care of 4. She's become pretty much not ambulatory. She has been finicky about food for a while. Now for last 2 days the hospital not even taking her medications or taking any food. Just clenches her teeth. Becomes anxious. Had a very lengthy discussion with him about feeding tube versus hospice. He was not sure. Some more time. He states that he'll get back to us later today. Late in the evening nurse informed me that he decided to proceed with hospice. That'll occur tomorrow. CODE STATUS was also discussed. Made DO NOT RESUSCITATE Active Medications Acetaminophen (Acetaminophen Tab 325 Mg Tab) 650 mg PO Q6HR PRN PRN Reason: Mild Pain or Fever > 100.5 Last Admin: 08/10/21 19:35 Dose: 650 mg Amlodipine Besylate (Amlodipine 10 Mg Tab) 10 mg PO DAILY [facility] Last Admin: 08/14/21 08:40 Dose: Not Given Aspirin (Aspirin 81 Mg) 81 mg PO BID [facility] Last Admin: 08/14/21 08:40 Dose: Not Given Cholecalciferol (Cholecalciferol 25 Mcg (1000 Iu) Tablet) 25 mcg PO DAILY [facility] Last Admin: 08/14/21 08:40 Dose: Not Given Folic Acid (Folic Acid 1 Mg Tab) 1 mg PO DAILY@1200 [facility] Last Admin: 08/14/21 11:53 Dose: Not Given Gabapentin (Gabapentin 300 Mg Cap) 300 mg PO BID [facility] Last Admin: 08/14/21 08:40 Dose: Not Given Hydralazine HCl (Hydralazine Hcl 20 Mg/Ml 1 Ml Vial) 10 mg IVP Q6HR PRN PRN Reason: Blood Pressure - High Last Admin: 08/14/21 08:32 Dose: 10 mg Ceftriaxone Sodium 1 gm/ (Sodium Chloride) 50 mls @ 100 mls/hr IVPB Q24H [facility]; Protocol Last Admin: 08/14/21 01:15 Dose: 100 mls/hr Insulin Aspart (Insulin Aspart (Novolog) 100 Unit/Ml Vial) 0 unit SQ ACHS [facility]; Protocol Last Admin: 08/14/21 16:35 Dose: Not Given Insulin Detemir (Insulin Detemir (Levemir) 100 Unit/Ml Syr) 20 unit SQ HS [facility] Last Admin: 08/13/21 21:28 Dose: 20 unit Levothyroxine Sodium (Levothyroxine 50 Mcg Tab) 50 mcg PO DAILY@0630 [facility] Last Admin: 08/14/21 05:35 Dose: Not Given Megestrol Acetate (Megestrol 400 Mg/10 Ml Cup) 400 mg PO DAILY [facility] Last Admin: 08/14/21 08:40 Dose: Not Given Metformin HCl (Metformin 500 Mg Tab) 500 mg PO BID-W/MEALS [facility] Last Admin: 08/14/21 16:36 Dose: Not Given Metoprolol Tartrate (Metoprolol Tartrate 25 Mg Tab) 25 mg PO DAILY [facility] Last Admin: 08/14/21 08:40 Dose: Not Given Miscellaneous Information (Potassium Replacement Protocol 1 Each Misc) 1 each MISCELLANE DAILY PRN; Protocol PRN Reason: Per Protocol Miscellaneous Information (Magnesium Replacement Protocol 1 Each Misc) 1 each MISCELLANE DAILY PRN; Protocol PRN Reason: Per Protocol Multivitamins (Multivitamins, Thera 1 Each Tab) 1 each PO DAILY@1200 [facility] Last Admin: 08/14/21 11:53 Dose: Not Given Naloxone HCl (Naloxone 0.4 Mg/Ml 1 Ml Vial) 0.2 mg IV Q2M PRN PRN Reason: Opioid Reversal Pantoprazole Sodium (Pantoprazole 40 Mg Tablet) 40 mg PO DAILY [facility] Last Admin: 08/14/21 08:40 Dose: Not Given Potassium Chloride (Potassium Chloride Er 20 Meq Tab.Er) 20 meq PO BID [facility] Last Admin: 08/14/21 08:40 Dose: Not Given Ropinirole HCl (Ropinirole Hcl 1 Mg Tab) 3 mg PO HS [facility] Last Admin: 08/13/21 21:39 Dose: Not Given Thiamine HCl (Thiamine 100 Mg Tab) 100 mg PO DAILY@1200 [facility] Last Admin: 08/14/21 11:53 Dose: Not Given Zinc Sulfate (Zinc Sulfate 220 Mg Cap) 220 mg PO DAILY [facility] Last Admin: 08/14/21 08:40 Dose: Not Given On examination: VITAL SIGNS: [98.5, 101, 20, 183 with 79, 95% room air] GENERAL APPEARANCE: Propped up in bed, very anxious appearing, clenching teeth HEENT: Normal external appearance of nose and ear. Oral cavity dry mucous membranes EYES: Pupils equal. Conjunctiva normal. NECK: JVD unable to assess. Mass not palpable. RESPIRATORY: Respiratory effort normal. Crease breath sounds CARDIOVASCULAR: First and second sounds normal. No edema. ABDOMEN: Soft. Liver and spleen not palpable. No tenderness. No mass palpable. PSYCHIATRY: May speak an occasional word. Anxious. INVESTIGATIONS, reviewed in the clinical context: Check 63: Mild fibrotic changes White count 10.4 hemoglobin 11 platelets 297 potassium 4.4 creatinine 0.9 Assessment: -Acute urinary tract infection. Urine culture: Negative IV ceftriaxone -Late onset Alzheimer's dementia with progressive symptoms coming on for a while. -Acute delirium, multifactorial including infection -Hypokalemia Corrected -Diabetes type 2 on oral hypoglycemic Patient on metformin and NPH.. Currently refusing food. -Hypertension Lopressor 25 mg daily -Hypothyroidism Synthroid 50 g daily -Clinical dehydration from poor oral intake Increase IV fluids -DO NOT RESUSCITATE Encourage oral intake. Increase IV fluids. Change Synthroid to IV. Prognosis poor. Patient made DO NOT RESUSCITATE. Advanced care planning: Discussed at length with the patient. has been the patient DO NOT RESUSCITATE. He was initially indecisive about a PEG tube. Late in the evening he decided to do no artificial feeding. He has proceeded to talk to hospice and plan is to discharge the patient home tomorrow with hospice. Time spent for this 25 minutes
[2021-08-14] MEDS ORDERED: LEVOTHYROXINE IVP 100 MCG/5 ML VIAL IV SCH (18:00)
[2021-08-14] MEDS: SODIUM CHLORIDE 0.9% 1,000 ML IV SCH (19:46)
[2021-08-14 20:57] LABS: Glucose,Whole Blood 159 mg/dL (75-99)
[2021-08-14] MEDS: INSULIN DETEMIR (LEVEMIR) 100 UNIT/ML SYR SQ SCH (21:17)
[2021-08-15] MEDS: SODIUM CHLORIDE 0.9% 1,000 ML IV SCH ×2 (03:47→13:04)
[2021-08-15 06:54] LABS: Glucose,Whole Blood 98 mg/dL (75-99)
[2021-08-15] MEDS: INSULIN ASPART (NovoLOG) 100 UNIT/ML VIAL SQ SCH ×2 (07:07→13:05)
[2021-08-15] MEDS: metFORMIN 500 MG TAB PO SCH (07:07)
[2021-08-15] MEDS: amLODIPine 10 MG TAB PO SCH (07:07)
[2021-08-15] MEDS: METOPROLOL TARTRATE 25 MG TAB PO SCH (07:08)
[2021-08-15] MEDS: PANTOPRAZOLE 40 MG TABLET PO SCH (07:08)
[2021-08-15] MEDS: POTASSIUM CHLORIDE ER 20 MEQ TAB.ER PO SCH (07:08)
[2021-08-15] MEDS: ASPIRIN 81 MG PO SCH (07:08)
[2021-08-15] MEDS: MEGESTROL 400 MG/10 ML CUP PO SCH (07:08)
[2021-08-15] MEDS: CHOLECALCIFEROL 25 MCG (1000 IU) TABLET PO SCH (07:09)
[2021-08-15] MEDS: GABAPENTIN 300 MG CAP PO SCH (07:09)
[2021-08-15] MEDS: ZINC SULFATE 220 MG CAP PO SCH (07:09)
[2021-08-15] MEDS: hydrALAZINE HCL 20 MG/ML 1 ML VIAL IVP PRN (07:22)
[2021-08-15 07:31] VITALS: BP 178/75; PULSE 102; RESP 18; TEMP 98.9
[2021-08-15] MEDS ORDERED: cloNIDine 0.2 MG/24HR PATCH TRANSDERM SCH (11:00)
[2021-08-15 11:26] LABS: Glucose,Whole Blood 117 mg/dL (75-99)
[2021-08-15] MEDS: MULTIVITAMINS, THERA 1 EACH TAB PO SCH (13:04)
[2021-08-15] MEDS: FOLIC ACID 1 MG TAB PO SCH (13:04)
[2021-08-15] MEDS: THIAMINE 100 MG TAB PO SCH (13:04)
--- NOTE | 2021-08-15 23:33 | P.DS ---
Providers Date of admission: 08/08/21 14:31 Expected date of discharge: 08/15/21 Attending physician: Amadeo Rush Primary care physician: Percy [facility] Hospital Course: Patient is a 71-year-old female was admitted to the hospital due to altered mental status and possible urinary tract infection. Continued on antibiotics. 08/10/2021 Patient is currently resting in the bed. Awake alert but not oriented patient is having minimal oral intake. No complaints of chest pain or shortness of breath. No nausea or vomiting or diarrhea. Patient has been afebrile. Discussed with her at bedside in detail. 08/11/2021 Patient is currently resting in the bed. Mental status remains the same. Patient has been afebrile. No nausea vomiting or diarrhea. Increased with oral intake. Blood sugar is elevated but controlled compared to yesterday. No complaints of chest pain or shortness of breath. No cough or sputum production. Urine culture showed normal tiarra. 08/12/2021 Patient is currently resting in bed. Awake alert but not oriented. Could not provide any history. Patient's is at bedside. Otherwise patient is afebrile. No nausea or vomiting. No other acute overnight issues. Urine culture showed normal tiarra. Remains on antibiotics and off ceftriaxone. Patient does have very minimal oral intake. PT OT will be consulted and possible rehab transfer. August 14: I resumed care of patient today. at the bedside. Had a very lengthy discussion with the patient . Patient is gradually been declining at home for a while. Not even able to recognize family at home. takes care of 4. She's become pretty much not ambulatory. She has been finicky about food for a while. Now for last 2 days the hospital not even taking her medications or taking any food. Just clenches her teeth. Becomes anxious. Had a very lengthy discussion with him about feeding tube versus hospice. He was not sure. Some more time. He states that he'll get back to us later today. Late in the evening nurse informed me that he decided to proceed with hospice. That'll occur tomorrow. CODE STATUS was also discussed. Made DO NOT RESUSCITATE August 15: Patient refuses to eat. No decub medications. Son decided to patient to go home with hospice. Discharge home with hospice. Hospital bed present at home. Catapres patch added for blood pressure. Discussion and discharge planning more than 35 minutes On examination: VITAL SIGNS: [98.9, 102, 18, 170s to 75, 96% room air GENERAL APPEARANCE: Propped up in bed, anxious clenching teeth HEENT: Normal external appearance of nose and ear. Oral cavity dry mucous membranes EYES: Pupils equal. Conjunctiva normal. NECK: JVD unable to assess. Mass not palpable. RESPIRATORY: Respiratory effort normal. Crease breath sounds CARDIOVASCULAR: First and second sounds normal. No edema. ABDOMEN: Soft. Liver and spleen not palpable. No tenderness. No mass palpable. PSYCHIATRY: May speak an occasional word. Anxious. INVESTIGATIONS, reviewed in the clinical context: Chest x-ray: Mild fibrotic changes White count 10.4 hemoglobin 11 platelets 297 potassium 4.4 creatinine 0.9 Assessment: -Acute urinary tract infection. Urine culture: Negative IV ceftriaxone. Discontinued -Late onset Alzheimer's dementia with progressive symptoms coming on for a while. -Acute delirium, multifactorial including infection -Hypokalemia Corrected -Diabetes type 2 on oral hypoglycemic Patient on metformin and NPH.. Currently refusing food. -Hypertension Lopressor 25 mg daily -Hypothyroidism Synthroid 50 g daily -Clinical dehydration from poor oral intake Increase IV fluids -DO NOT RESUSCITATE Disposition: Home with hospice Plan - Discharge Summary Discharge Rx Participant: Yes New Discharge Prescriptions: New Multivitamins, Thera [Multivitamin (formulary)] 1 each PO DAILY@1200 tab Acetaminophen Tab [Tylenol] 650 mg PO Q6HR PRN tab PRN Reason: Mild Pain Or Fever > 100.5 cloNIDine 0.2 MG/24HR PATCH [Catapres-TTS] 1 patch TRANSDERM Q7D #3 patch Continue Levothyroxine Sodium [Synthroid] 50 mcg PO DAILY Aspirin EC [Ecotrin Low Dose] 81 mg PO BID Omeprazole 40 mg PO DAILY rOPINIRole HCL [Requip] 3 mg PO HS metFORMIN HCL 500 mg PO BID-W/MEALS Discontinued Metoprolol Tartrate [Lopressor] 25 mg PO DAILY tab Cholecalciferol [Vitamin D3 (25 Mcg = 1000 Iu)] 25 mcg PO DAILY Cranberry Fruit Extract [Cranberry] 500 mg PO DAILY Zinc 50 mg PO DAILY Ascorbic Acid [Vitamin C] 500 mg PO DAILY Insulin NPH Hum/Reg Insulin Hm [NovoLIN 70-30 100 UNIT/ML VIAL] See Protocol SQ TID-W/MEALS PRN PRN Reason: HIGH BLOOD SUGAR Gabapentin 300 mg PO BID Cephalexin [Keflex Susp] 500 mg PO Q8H No Action Quercetin 1 tab PO DAILY Discharge Medication List Levothyroxine Sodium [Synthroid] 50 mcg PO DAILY 09/13/15 [History] Aspirin EC [Ecotrin Low Dose] 81 mg PO BID 08/17/17 [History] Omeprazole 40 mg PO DAILY 08/17/17 [History] rOPINIRole HCL [Requip] 3 mg PO HS 10/06/18 [History] Quercetin 1 tab PO DAILY 07/24/21 [History] metFORMIN HCL 500 mg PO BID-W/MEALS 07/24/21 [History] Acetaminophen Tab [Tylenol] 650 mg PO Q6HR PRN tab 08/15/21 [Rx] Multivitamins, Thera [Multivitamin (formulary)] 1 each PO DAILY@1200 tab 08/15/21 [Rx] cloNIDine 0.2 MG/24HR PATCH [Catapres-TTS] 1 patch TRANSDERM Q7D #3 patch 08/15/21 [Rx] Follow up Appointment(s)/Referral(s): Percy King DO [Primary Care Provider] - 1-2 days Patient Instructions/Handouts: Hospice (DC) Discharge Disposition: HOME WITH HOSPICE
== END 2021-08-15 14:28 | disposition hospice, home (50) | DRG 689 ==
LOC: EC 21:43 → 4SSUR 08-08 00:40 → OBSVTOIN 08-08 14:31
PROVIDERS: ADMIT Hospitalist; ATTEND Hospitalist
DX: N39.0 Urinary tract infection, site not specified (principal); G93.41 Metabolic encephalopathy; F05 Delirium due to known physiological condition; E03.9 Hypothyroidism, unspecified; E11.65 Type 2 diabetes mellitus with hyperglycemia; Z51.5 Encounter for palliative care; E78.5 Hyperlipidemia, unspecified; E86.0 Dehydration; E87.6 Hypokalemia; G30.1 Alzheimer's disease with late onset; F02.80 Dementia in other diseases classified elsewhere, unspecified severity, without behavioral disturbance, psychotic disturbance, mood disturbance, and anxiety; J44.9 Chronic obstructive pulmonary disease, unspecified; I10 Essential (primary) hypertension; M54.9 Dorsalgia, unspecified; G89.29 Other chronic pain; Z96.653 Presence of artificial knee joint, bilateral; Z66 Do not resuscitate; Z79.4 Long term (current) use of insulin; Z79.82 Long term (current) use of aspirin; Z79.890 Hormone replacement therapy; Z79.899 Other long term (current) drug therapy; Z90.13 Acquired absence of bilateral breasts and nipples; Z83.3 Family history of diabetes mellitus
CPT/HCPCS: 36415; 70450; 71045; 80048; 80053; 80320; 81001; 82607; 82747; 83036; 83735; 84132; 84443; 84484; 85025; 85610; 85730; 87040; 87086; 93005; 96361; 96374; 99285